=== PATIENT | female | born 1950 | race Caucasian/White ===

== ENCOUNTER 2016-09-05 20:34 | Inpatient (IN) ==
[2016-09-05] MEDS ORDERED: SODIUM CHLORIDE 0.9% 1,000 ML IV STA (21:02)
[2016-09-05] MEDS ORDERED: ONDANSETRON 4 MG/2 ML VIAL IV STA (21:03)
[2016-09-05 21:15] LABS: Basophils % 0.2 % (0.0-0.8); Eosinophils # 0.2 10*3/uL (0.0-0.87); Eosinophils % 2.1 % (0.00-10.9); Hematocrit 41.2 VOL% (35.7-47.0); Hemoglobin 13.7 GM/DL (12.0-16.0); Immature Granulocytes % 0.5 %; Immature Granulocytes Absolute 0.05 #; Lymphocytes # 0.5 10*3/uL (1.4-4.0); Lymphocytes % 4.9 % (21.3-54.2); Mean Corpuscular HGB Conc 33.3 GM/DL (32-36); Mean Corpuscular Hemoglobin 30 PG (27-34); Mean Corpuscular Volume 89.2 FL (87-102); Mean Platelet Volume 11.4 FL (9.6-12.0); Monocytes # 0.4 10*3/uL (0.11-0.8); Monocytes % 4.5 % (1.7-12.7); Neutrophils # 8.4 10*3/uL (1.4-7.4); Neutrophils % 87.8 % (38.7-73.9); Platelet Count 245 T/CUMM (130-400); Red Blood Count 4.62 MC/CUMM (3.8-5.5); Red Cell Distribution Width 13.4 % (9.3-17.3); White Blood Count 9.6 T/CUMM (4-12)
[2016-09-05 21:20] LABS: Ammonia 15 UMOL/L (11-32)
[2016-09-05 21:24] LABS: PT Patient Result 10.4 SECS
[2016-09-05 21:27] LABS: Alanine Aminotransferase 20 U/L (13-56); Albumin 3.5 G/DL (3.4-5.0); Alkaline Phosphatase 136 U/L (45-117); Aspartate Amino Transferase 21 U/L (0-37); Blood Urea Nitrogen 19 MG/DL (7-18); Calcium 8.7 MG/DL (8.5-10.1); Glucose 252 MG/DL (74-106); Magnesium 1.7 MG/DL (1.8-2.4); Potassium 3.8 MMOL/L (3.5-5.1); Sodium 143 MMOL/L (136-145); Total Protein 6.6 G/DL (6.4-8.3); Troponin I Only 0.045 NG/ML (0.00-0.045)
--- NOTE | 2016-09-05 21:29 | XRay Report ---
History is altered mental status Comparison 06/28/2015 The heart and vessels are mildly enlarged without overt congestive failure or confluent infiltrates seen Impression: Cardiomegaly and chronic vascular congestion PROCEDURE INTERPRETED AT [facility] DEPARTMENT OF RADIOLOGY Final Report Signed by: Dr. Jesenia Price
--- NOTE | 2016-09-05 21:30 | XRay Report ---
History is diarrhea Moderate air scattered in the bowel without disproportionate small bowel dilatation or organomegaly seen Small left pelvic calcification likely phlebolith Impression: Unremarkable bowel gas pattern PROCEDURE INTERPRETED AT [facility] DEPARTMENT OF RADIOLOGY Final Report Signed by: Dr. Jesenia Price
--- NOTE | 2016-09-05 21:33 | CT Report ---
History is mental status changes Comparison 06/26/2015 The ventricles are normal in size. No acute intracranial hemorrhage, mass effect, or evidence of acute cortical stroke seen. Impression: No acute intracranial pathology seen. The CT exam was performed using one or more of the following dose reduction techniques: Automated exposure control, adjustment of the mA and/or kV according to patient size, or use of iterative reconstruction technique. PROCEDURE INTERPRETED AT [facility] DEPARTMENT OF RADIOLOGY Final Report Signed by: Dr. Jesenia Price
[2016-09-05 21:34] LABS: Eosinophils 3 % (0-10); Lymphocytes 4 % (20-55); Segmented Neutrophils 88 % (50-85); Total Cells Counted 100
[2016-09-05 21:35] LABS: Anisocytosis Slight; Hypochromasia Slight; Platelet Estimate Adequate; Polychromasia Slight
[2016-09-05] MEDS ORDERED: ONDANSETRON 4 MG/2 ML VIAL ONE (22:15)
--- NOTE | 2016-09-05 22:16 | Emergency Department Note ---
IJessica Gwan, am scribing for, and in the presence of, Neno Tam MD 21:13. IYonatan Kevin Lee, MD, personally performed the services described in this documentation, ascribed by Navdeep Lopez in my presence, and it is both accurate and complete . Arrival - Arrival Chief Complaint: Altered Mental Status Stated Complaint: C/O ALTERED MENTAL STATUS. PT WAS FOUND SITTING ED Nursing Triage Note: C/O ALTERED MENTAL STATUS, PT FOUND SITTING IN FECES IN FLOOR AT HOME. PT IS AWAKE AND ALERT BUT NOT SURE WHO THE PRESIDENT IS. Mode of Arrival: Stretcher Limitations: No Limitations Source: Patient, Old Records Reviewed, RN Notes Reviewed - History of Present Illness HPI Narrative: Pt is a 65 y/o female who was bought into ED for further evaluation of AMS. Nurses noted that pt was found sitting in the floor of her home in feces by family. This prompted them to alert EMS and report to ED for further evaluation. During exam, pt stated that she has been passing out, had N/V/D and SOB. She confirmed that she has been followed by Dr. Evans. She denies any other pain/injury. Patient was alert but disoriented to time. Pt has a PMHx of HTN, [place] , anxiety, depression, vertigo, cardiac dysrhythmia, CVA, IDDM, NIDDM, dyslipidemia, asthma, COPD and arthritis. Onset (ago): hour(s) Consistency: constant Severity: moderate Date of Last Menstrual Period: HYST Allergies/Adverse Reactions: Allergies Allergy/AdvReac Type Severity Reaction Status Date / Time fluticasone Allergy Intermediate MOUTH SORES Verified 08/08/15 11:36 [From Advair Diskus] morphine Allergy Intermediate RASH Verified 11/25/14 13:25 salmeterol Allergy Intermediate MOUTH SORES Verified 08/08/15 11:36 [From Advair Diskus] bee venom (honey bee) Allergy Unknown/Unable Verified 06/20/16 07:30 to obtain Home Medications: Home Medications Medication Instructions Recorded Confirmed Type Albuterol Sulfate [Proair HFA] 2 puff INH Q6H PRN 03/11/15 06/20/16 History Aspirin [Ecotrin] 325 mg PO DAILY 03/11/15 06/20/16 History Atorvastatin Calcium [Lipitor] 80 mg PO DAILY 03/11/15 06/20/16 History Digoxin Tab [Lanoxin Tab] 0.125 mg PO DAILY 03/11/15 06/20/16 History Gabapentin Cap/Tab [Neurontin 600 mg PO TID 03/11/15 06/20/16 History Cap/Tab] Glyburide,Micronized [Glyburide 6 mg PO BID W/MEALS 03/11/15 06/20/16 History Micronized] HYDROcodone/ACETAMIN 10-325 [[place] 1 tablet PO Q6H 03/11/15 06/20/16 History 10-325] Insulin NPH/Regular 70/30 [HumuLIN 80 units SUBCUT DAILY W/SUPPER 03/11/1506/20 History 70/30] Insulin NPH/Regular 70/30 [HumuLIN 110 units SUBCUT DAILY W/BREAKFAST 03/11/15 06/20/16 History 70/30] Isosorbide Mononitrate [Imdur] 60 mg PO DAILY 03/11/15 06/20/16 History Magnesium Oxide 400 mg PO DAILY 03/11/15 06/20/16 History Metoclopramide Tab [Reglan Tab] 10 mg PO DAILY 03/11/15 06/20/16 History Metoprolol Tartrate 12.5 mg PO BID 03/11/15 06/20/16 History Pantoprazole Tab [Protonix Tab] 40 mg PO BID 03/11/15 06/21/16 History Paroxetine HCl [Paxil] 80 mg PO DAILY 06/26/15 06/21/16 History traZODone [Desyrel] 150 mg PO BID 06/26/15 06/21/16 History Fenofibrate [Tricor] 145 mg PO DAILY 05/08/16 06/20/16 History Insulin Regular [HumuLIN R] 20 unit SUBCUT DIRECTED PRN 05/08/16 06/20/16 History Meclizine [Antivert] 25 mg PO TID PRN 05/08/16 06/20/16 History Montelukast Tab [Singulair Tab] 10 mg PO DAILY 05/08/16 06/21/16 History Nitroglycerin Sl Tab [Nitrostat] 0.4 mg SL Q5M PRN 05/08/16 06/20/16 History Oxycodone HCl/Acetaminophen 1 each PO BEDTIME 05/08/16 06/21/16 History [Percocet 10-325 mg Tablet] Verapamil HCl [Verapamil ER Tab] 180 mg PO BID 05/08/16 06/20/16 History Clopidogrel [Plavix] 75 mg PO DAILY 06/20/16 06/20/16 History Furosemide Tab [Lasix Tab] 80 mg PO DAILY 06/20/16 06/20/16 History Lisinopril [Prinivil] 20 mg PO DAILY 06/20/16 06/20/16 History Methocarbamol Tab [Robaxin Tab] 500 mg PO TID PRN 06/20/16 06/20/16 History clonazePAM TAB [KlonoPIN] 0.5 mg PO BID 06/20/16 06/20/16 History Review of System - Review of System 12 point system: reviewed and no additional remarkable complaints except as stated - Review of System Respiratory: Present: as per HPI, other (shortness of breathe) Cardiovascular: Present: as per HPI, syncope Gastrointestinal: Present: as per HPI, nausea, vomiting, diarrhea Medical,Surgical,& Family Hx - Medical History Cardio: History of: Cardiac Dysrhythmia, Hypertension, [place] No history of: CHF, Pacemaker Psychological: History of: Anxiety Disorders, Depression Neurology: History of: Cerebrovascular Accident, Migraine, Vertigo, Neurological Problems (diabetic neuropathy) No history of: Seizures HEENT: History of: Eye Problem (glasses, cataracts) Endocrine: History of: Diabetes Mellitus (IDDM), Diabetes Mellitus (NIDDM), Dyslipidemia, Thyroid Disorder (has taken thyroid med in past) Rheumatology: History of;: Fibromyalgia Respiratory: History of: Asthma, COPD, Respiratory Problems (sleeps with oxygen) No history of: Obstructive Sleep Apnea Gastrointestinal: History of: GERD, Polyps, GI Problems (dysphagia) No history of: Hepatitis, Liver Problems Musculoskeletal: History of: Back/Neck Problems, Degenerative Disk Disease, Musculoskeletal Problems (arthritis) Hematology: No history of: Blood Transfusion Reaction Other: History of: Anesthesia Reactions, Miscellaneous Medical Problems (OBESITY ) No history of: Cancer - Surgical History Cardiac Surgeries: Patient Denies: Cardiac Catheterization (stents x 3), Carotid Endarterectomy Thoracic Surgeries: Patient denies;: Organ Transplant HEENT Surgeries: Surgical HX of: Tonsilectomy & Adenoidectomy Patient denies: Carotid Endarterectomy, Eye Surgery, Thyroid Surgery Abdominal Surgeries: Surgical HX of: Appendectomy, Colonoscopy, EGD, Hernia Repair Patient denies: Cholecystectomy Reproductive Surgeries: Surgical HX of;: Hysterectomy, Tubal Ligation Orthopedic Surgeries: Surgical HX of;: Orthopedic Surgery (shoulder repair) Patient denies;: Total Hip Replacement, Total Knee Replacement - Family History Family History: Reports;: Family Cancer (mother-lung, father-throat, brother- prostate), Family Diabetes, Family Heart Disease, Family Hypertension, Family Stroke - Social History Smoking Status: Never smoker Frequency of Alcohol Use: None Type of Drug Use: None Exam Vital Signs: Vital Signs Temperature 97.8 F 09/05/16 20:36 Pulse Rate 83 09/05/16 20:36 Respiratory Rate 18 09/05/16 21:00 Blood Pressure 131/101 09/05/16 20:36 O2 Sat by Pulse Oximetry 94 L 09/05/16 20:36 - General General appearance: alert, in no apparent distress - Head Head exam: Present: atraumatic, normocephalic - Eye Eye exam: Present: normal appearance, PERRL, EOMI - ENT ENT exam: Present: normal oropharynx, mucous membranes dry - Neck Neck exam: Present: full ROM, trachea midline. Absent: tenderness - Chest Chest inspection: Present: symmetric chest wall rise. Absent: tenderness - Respiratory Respiratory exam: Present: normal lung sounds bilaterally. Absent: respiratory distress - Cardiovascular Cardiovascular exam: Present: regular rate, normal rhythm, normal heart sounds. Absent: murmur, rubs - Abdominal Exam Abdominal exam: Present: soft. Absent: tenderness - Extremities Exam Extremities exam: Present: full ROM. Absent: tenderness - Back Exam Back exam: Present: full ROM. Absent: tenderness - Neurological Exam Neurological exam: Present: alert. Absent: oriented X3 (pt is disoriented on time) - Psychiatric Psychiatric exam: Present: normal affect, normal mood - Skin Skin exam: Present: warm, dry, intact, normal color Course Course Narrative: pt conts to be lethargic will admit for IV fluids and further workup of confusion Results - Labs CBC & BMP: 09/05/16 20:45 09/05/16 20:45 Lab Results: I have reviewed the patients labs Labs: Laboratory Tests 09/05/16 09/05/16 20:45 20:45 WBC 9.6 RBC 4.62 Hgb 13.7 Hct 41.2 Plt Count 245 Neut % (Auto) 87.8 H Lymph % (Auto) 4.9 L Neut # (Auto) 8.4 H Lymph # (Auto) 0.5 L Ammonia 15 Laboratory Tests 09/05/16 09/05/16 20:45 20:45 INR 1.0 PT Patient/Control Mix 10.4 Sodium 143 Potassium 3.8 Chloride 100 Carbon Dioxide 32 BUN 19 H Creatinine 1.30 H Glucose 252 H Magnesium 1.7 L Alkaline Phosphatase 136 H Serum Alcohol < 15 L Laboratory Tests 09/05/16 20:45 Segmented Neutrophils 88 H Lymphocytes 4 L - Diagnostic Findings Procedure: Chest x-ray: report reviewed by me (Cardiomegaly and chronic vascular congestion. ), KUB x-ray: report reviewed by me (Unremarkable bowel gas pattern. ), CT: report reviewed by me (Head: No acute intracranial pathology seen. ) Disposition Clinical Impression: Confusion, Dehydration Case discussed with: patient Disposition: Still a Patient Condition: Stable
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
[2016-09-05 23:20] LABS: Apearance,Urine CLEAR (Clear); Bilirubin,Urine Negative (Negative); Blood, Urine Moderate mg/dL (Negative); Glucose,Urine (UA) 50 mg/dL (Negative); Hyaline Casts,Urine 1 /LPF (0-3); Ketones,Urine Negative (Negative); Mucus,Urine Occasional /LPF (Occasional); Nitrite,Urine Negative (Negative); Protein,Urine 30 MG/DL; RBC,Urine 1 /HPF (0-4); Squamous Epithelial Cell,Urine Occasional /HPF (0-10); Urine Color Yellow (Yellow); Urine Specific Gravity 1.014 (1.001-1.035); Urine Urobilinogen < 2.0 EU/DL (0.2-1.0); WBC,Urine 1 /HPF (0-6)
[2016-09-05] MEDS ORDERED: ONDANSETRON 4 MG/2 ML VIAL IV PRN (23:23)
[2016-09-05] MEDS ORDERED: GLUCAGON 1 MG VIAL IM PRN (23:23)
[2016-09-05] MEDS ORDERED: DEXTROSE 50% 25 GM/50 ML VIAL IV PRN (23:23)
[2016-09-05 23:29] LABS: Barbiturates Screen,Urine Negative (Negative); Benzodiazepines Screen,Urine Negative (Negative); Cannabinoid Screen,Urine Negative (Negative); Opiate Screen,Urine Positive (Negative); Phencyclidine Screen,Urine Negative (Negative)
[2016-09-06] MEDS: SODIUM CHLORIDE 0.45% 1,000 ML IV SCH ×2 (00:39→15:13)
[2016-09-06] MEDS: ACETAMINOPHEN 325 MG TABLET PO PRN ×2 (01:20→08:04)
[2016-09-06] MEDS: cefTRIAXone 1,000 MG in SODIUM CHLORIDE 0.9% 100 ML IV SCH ×2 (01:20→20:25)
[2016-09-06 05:51] LABS: Basophils % 0.2 % (0.0-0.8); Eosinophils # 0.1 10*3/uL (0.0-0.87); Hematocrit 39.2 VOL% (35.7-47.0); Hemoglobin 12.7 GM/DL (12.0-16.0); Immature Granulocytes % 0.5 %; Immature Granulocytes Absolute 0.04 #; Lymphocytes # 0.9 10*3/uL (1.4-4.0); Lymphocytes % 10.1 % (21.3-54.2); Mean Corpuscular HGB Conc 32.4 GM/DL (32-36); Mean Corpuscular Hemoglobin 30 PG (27-34); Mean Corpuscular Volume 91.8 FL (87-102); Mean Platelet Volume 11.4 FL (9.6-12.0); Monocytes # 0.5 10*3/uL (0.11-0.8); Monocytes % 5.2 % (1.7-12.7); Neutrophils # 7.2 10*3/uL (1.4-7.4); Platelet Count 223 T/CUMM (130-400); Red Blood Count 4.27 MC/CUMM (3.8-5.5); Red Cell Distribution Width 13.5 % (9.3-17.3); White Blood Count 8.6 T/CUMM (4-12)
[2016-09-06 06:30] LABS: Calcium 8.1 MG/DL (8.5-10.1); Osmolality,Calculated 294.1 MOS/KG (273-304); Potassium 3.6 MMOL/L (3.5-5.1)
[2016-09-06] MEDS: INSULIN REGULAR 100 UNIT/ML SUBCUT SCH ×4 (08:04→20:25)
[2016-09-06] MEDS: PANTOPRAZOLE 40 MG TABLET PO SCH ×2 (08:04→20:26)
[2016-09-06] MEDS: ENOXAPARIN 40 MG/0.4 ML SYRINGE SUBCUT SCH (08:07)
--- NOTE | 2016-09-06 08:58 | EKG Report ---
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
--- NOTE | 2016-09-06 14:23 | Hospitalist Progress Note ---
Assessment and Plan (1) Confusion Status: Acute Assessment and plan: most likely multifactorial-dehydration from n/v/D, to r/o infection and possible early stages of dementia. patient is alert, oriented x3 and answered all questions appropriately.I suspect she is back to her baseline. plan continue hydration follow cultures dementia work up Current Visit: No (2) Diabetes mellitus Status: Acute Assessment and plan: uncontrolled,will resume home 70/30 at a lower dose of 20bid, half the home dose of glyburide, will titrate up as needed, get HbA1c level, continue with SSC. Current Visit: No Qualifiers: Diabetes mellitus complication detail: with polyneuropathy Qualified Code(s ): E11.42 - Type 2 diabetes mellitus with diabetic polyneuropathy (3) HTN (hypertension) Status: Acute Assessment and plan: will resume home meds except for verapamil and Lasix. Current Visit: Yes (4) Chronic pain syndrome Problem details: Continue current medications and home and keep follow-up appointment in pain clinic Status: Acute Assessment and plan: resume home meds Current Visit: No (5) Dyslipidemia Status: Acute Assessment and plan: resume home meds. Current Visit: Yes (6) Fibromyalgia Status: Acute Assessment and plan: continue home meds. Current Visit: Yes Hospitalist: Subjective Interval history: 65yr old admitted for confusion, n/v/D. Today she states vomiting has improved but still nauseated and has only had an episode of diarrhea.She was alert, oriented x3 and answered all questions appropriately. Exam - Constitutional Vitals: Period Temp Pulse Resp BP Sys/Ordoñez Pulse Ox Last 24 Hr 98.6 F-99.6 F 76-86 12-26 154-168/68-83 90-95 General appearance: no acute distress, morbidly obese - Head Head exam: Present: normal inspection - Respiratory Respiratory exam: Present: clear to auscultation bilaterally - Cardiovascular Cardiovascular exam: Present: regular rate and rhythm - GI/Abdominal GI/Abdominal exam: Present: normal bowel sounds - Extremities Exam Extremities exam: Present: normal inspection - Back Exam Back exam: Present: normal inspection - Neurological Exam Neurological exam: Present: alert, oriented X3 Results - Labs CBC & BMP: 09/06/16 04:34 09/06/16 04:34 Lab Results: I have reviewed the past 24 hour labs Quality Measures - Stroke Symptom Onset Unknown: No
[2016-09-06] MEDS ORDERED: METHOCARBAMOL 500 MG TABLET PO PRN (14:39)
[2016-09-06] MEDS ORDERED: MECLIZINE 25 MG TABLET PO PRN (14:39)
[2016-09-06] MEDS ORDERED: PROMETHAZINE 25 MG TABLET PO PRN (14:39)
[2016-09-06] MEDS: GABAPENTIN 300 MG CAPSULE PO SCH ×2 (15:11→20:25)
[2016-09-06] MEDS: clonazePAM 0.5 MG TABLET PO SCH ×2 (15:11→20:26)
[2016-09-06 15:25] LABS: Free T4 (Free Thyroxine) 1.13 NG/DL (0.76-1.46); Thyroid Stimulating Hormone 0.283 uIU/ml (0.358-3.74)
[2016-09-06 15:45] LABS: Folate 2.6 NG/ML (5.4-24.0); Vitamin B12 280 PG/ML (211-911)
[2016-09-06] MEDS: INSULIN ASPART PROTAMINE/ASPART 70/30 100 UNIT/ML SUBCUT SCH (16:49)
[2016-09-06] MEDS ORDERED: ALBUTEROL 2.5 MG/3 ML NEB RESP TX PRN (19:00)
[2016-09-06] MEDS: oxyCODONE/ACETAMINOPHEN 5-325 MG TABLET PO SCH (20:25)
[2016-09-06] MEDS: METOPROLOL TARTRATE 25 MG TABLET PO SCH (20:25)
[2016-09-07] MEDS: SODIUM CHLORIDE 0.45% 1,000 ML IV SCH ×3 (05:25→19:30)
[2016-09-07 07:01] LABS: Basophils % 0.4 % (0.0-0.8); Eosinophils # 0.2 10*3/uL (0.0-0.87); Hematocrit 38.8 VOL% (35.7-47.0); Hemoglobin 12.7 GM/DL (12.0-16.0); Immature Granulocytes % 0.4 %; Immature Granulocytes Absolute 0.02 #; Lymphocytes # 1.8 10*3/uL (1.4-4.0); Lymphocytes % 39.5 % (21.3-54.2); Mean Corpuscular HGB Conc 32.7 GM/DL (32-36); Mean Corpuscular Hemoglobin 30 PG (27-34); Mean Corpuscular Volume 92.2 FL (87-102); Mean Platelet Volume 10.8 FL (9.6-12.0); Monocytes # 0.4 10*3/uL (0.11-0.8); Monocytes % 7.8 % (1.7-12.7); Neutrophils # 2.2 10*3/uL (1.4-7.4); Neutrophils % 46.9 % (38.7-73.9); Platelet Count 194 T/CUMM (130-400); Red Blood Count 4.21 MC/CUMM (3.8-5.5); Red Cell Distribution Width 13.8 % (9.3-17.3); White Blood Count 4.6 T/CUMM (4-12)
[2016-09-07 07:36] LABS: Osmolality,Calculated 297.1 MOS/KG (273-304); Potassium 4.1 MMOL/L (3.5-5.1)
[2016-09-07] MEDS: INSULIN ASPART PROTAMINE/ASPART 70/30 100 UNIT/ML SUBCUT SCH ×2 (09:11→16:46)
[2016-09-07] MEDS: INSULIN REGULAR 100 UNIT/ML SUBCUT SCH ×4 (09:11→21:18)
[2016-09-07] MEDS: PARoxetine 20 MG TABLET PO SCH (09:12)
[2016-09-07] MEDS: MELOXICAM 7.5 MG TABLET PO SCH (09:13)
[2016-09-07] MEDS: ARIPiprazole 2 MG TABLET PO SCH (09:13)
[2016-09-07] MEDS: GABAPENTIN 300 MG CAPSULE PO SCH ×3 (09:13→21:20)
[2016-09-07] MEDS: MAGNESIUM OXIDE 400 MG TABLET PO SCH (09:13)
[2016-09-07] MEDS: DIGOXIN 0.125 MG TABLET PO SCH (09:13)
[2016-09-07] MEDS: ASPIRIN EC 325 MG TABLET PO SCH (09:14)
[2016-09-07] MEDS: CLOPIDOGREL 75 MG TABLET PO SCH (09:14)
[2016-09-07] MEDS: clonazePAM 0.5 MG TABLET PO SCH ×3 (09:14→21:20)
[2016-09-07] MEDS: PANTOPRAZOLE 40 MG TABLET PO SCH ×3 (09:14→21:21)
[2016-09-07] MEDS: METOCLOPRAMIDE 10 MG TABLET PO SCH (09:14)
[2016-09-07] MEDS: MONTELUKAST 10 MG TABLET PO SCH (09:14)
[2016-09-07] MEDS: FENOFIBRATE 145 MG TABLET PO SCH (09:14)
[2016-09-07] MEDS: METOPROLOL TARTRATE 25 MG TABLET PO SCH ×2 (09:15→21:21)
[2016-09-07] MEDS: ISOSORBIDE MONONITRATE 60 MG TABLET PO SCH (09:15)
[2016-09-07] MEDS: LISINOPRIL 20 MG TABLET PO SCH (09:15)
[2016-09-07] MEDS: ATORVASTATIN 80 MG TABLET PO SCH (09:17)
[2016-09-07] MEDS: ENOXAPARIN 40 MG/0.4 ML SYRINGE SUBCUT SCH (10:09)
--- NOTE | 2016-09-07 16:29 | Hospitalist Progress Note ---
Assessment and Plan (1) Confusion Status: Acute Assessment and plan: most likely multifactorial-dehydration from n/v/D, to r/o infection and possible early stages of dementia. patient is alert, oriented x3 and answered all questions appropriately.I suspect she is back to her baseline.BC&UC- negative.RPR-non reactive.TSH-0.283 plan continue hydration Current Visit: No (2) Diabetes mellitus Status: Acute Assessment and plan: uncontrolled,will increase home 70/30 dose to half of the home dose-50qam,40qpm increase glyburide to home dose, will titrate up as needed, get HbA1c level- 11.7,continue with SSC. Current Visit: No Qualifiers: Diabetes mellitus complication detail: with polyneuropathy Qualified Code(s ): E11.42 - Type 2 diabetes mellitus with diabetic polyneuropathy (3) HTN (hypertension) Status: Acute Assessment and plan: continue home meds except for verapamil and Lasix. Current Visit: Yes (4) Chronic pain syndrome Problem details: Continue current medications and home and keep follow-up appointment in pain clinic Status: Acute Assessment and plan: resume home meds Current Visit: No (5) Dyslipidemia Status: Acute Assessment and plan: resume home meds. Current Visit: Yes (6) Fibromyalgia Status: Acute Assessment and plan: continue home meds. Current Visit: Yes Hospitalist: Subjective Interval history: Patient seen. She feels better but still a little weak and shaky. Exam - Constitutional Vitals: Period Temp Pulse Resp BP Sys/Ordoñez Pulse Ox Last 24 Hr 97.2 F-98.0 F 60-71 16-20 112-161/49-96 90-98 General appearance: no acute distress, morbidly obese - Head Head exam: Present: normal inspection - Respiratory Respiratory exam: Present: clear to auscultation bilaterally - Cardiovascular Cardiovascular exam: Present: regular rate and rhythm - GI/Abdominal GI/Abdominal exam: Present: normal bowel sounds - Extremities Exam Extremities exam: Present: normal inspection Results - Labs CBC & BMP: 09/07/16 06:31 09/07/16 06:31 Lab Results: I have reviewed the past 24 hour labs Quality Measures - Stroke Symptom Onset Unknown: No
[2016-09-07] MEDS: cefTRIAXone 1,000 MG in SODIUM CHLORIDE 0.9% 100 ML IV SCH (21:18)
[2016-09-07] MEDS: oxyCODONE/ACETAMINOPHEN 5-325 MG TABLET PO SCH (21:20)
[2016-09-08] MEDS ORDERED: INSULIN ASPART PROTAMINE/ASPART 70/30 100 UNIT/ML SUBCUT SCH ×2 (07:30→16:30)
--- NOTE | 2016-09-08 08:07 | Discharge Summary ---
<Milan Gonzalez - Last Filed: 09/08/16 08:01> Hospital Course - Hospital Course Hospital Course: Ms. Rios is a 65-year-old female who was admitted to the hospital medicine service on 09/05/2016 after presenting to the ER with confusion, nausea, vomiting, and diarrhea. She was found to be dehydrated, otherwise preliminary tests were unremarkable. Blood cultures and urine cultures were negative. No acute source of infection was found. Her hospital course was uncomplicated, highlighted by management of her uncontrolled diabetes mellitus, hypertension, and dehydration with IV fluids. She remained stable throughout her stay and has reached maximum benefit from hospitalization. She is ready for discharge to home at this time with appropriate follow-up as outlined in the discharge orders. - Time spent with patient Time with patient DS: Greater than 30 minutes Discharge Plan - Discharge Data Disposition: Disch To Home/Self Care - Discharge Medications Continue Pantoprazole Tab [Protonix Tab] 40 mg PO BID Metoclopramide Tab [Reglan Tab] 10 mg PO DAILY Albuterol Sulfate [Proair HFA] 2 puff INH Q6H PRN PRN Reason: Shortness Of Breath/Wheezing HYDROcodone/ACETAMIN 10-325 [[place] 10-325] 1 tablet PO Q6H Metoprolol Tartrate 12.5 mg PO BID Gabapentin Cap/Tab [Neurontin Cap/Tab] 600 mg PO TID Magnesium Oxide 400 mg PO DAILY Atorvastatin Calcium [Lipitor] 80 mg PO DAILY Isosorbide Mononitrate [Imdur] 60 mg PO DAILY Aspirin [Ecotrin] 325 mg PO DAILY Glyburide,Micronized [Glyburide Micronized] 6 mg PO BID W/MEALS Digoxin Tab [Lanoxin Tab] 0.125 mg PO DAILY traZODone [Desyrel] 150 mg PO BID Paroxetine HCl [Paxil] 80 mg PO DAILY Fenofibrate [Tricor] 145 mg PO DAILY Montelukast Tab [Singulair Tab] 10 mg PO DAILY Meclizine [Antivert] 25 mg PO TID PRN PRN Reason: Dizziness Methocarbamol Tab [Robaxin Tab] 500 mg PO TID PRN PRN Reason: Muscle Spasm Lisinopril [Prinivil] 20 mg PO DAILY Promethazine Tab [Phenergan Tab] 25 mg PO Q8HR PRN PRN Reason: Nausea ARIPiprazole [Abilify] 2 mg PO DAILY Diclofenac 1% Gel [Voltaren 1% Gel] 1 applic DAILY PRN PRN Reason: Pain Meloxicam 7.5 mg PO DAILY Insulin Aspart Prot/Asp 70/30 [NovoLOG Mix 70/30] 60 unit SUBCUT AC BREAKFAST #1 unit Clopidogrel [Plavix] 75 mg PO DAILY clonazePAM TAB [KlonoPIN] 1 mg PO TID Insulin Aspart Prot/Asp 70/30 [NovoLOG Mix 70/30] 50 unit SUBCUT AC SUPPER # 7 unit Oxycodone HCl/Acetaminophen [Percocet 10-325 mg Tablet] 1 each PO BEDTIME # 20 Discontinued Insulin NPH/Regular 70/30 [HumuLIN 70/30] 80 units SUBCUT DAILY W/SUPPER Insulin NPH/Regular 70/30 [HumuLIN 70/30] 110 units SUBCUT DAILY W/BREAKFAST Verapamil HCl [Verapamil ER Tab] 180 mg PO BID Insulin Regular [HumuLIN R] 1 unit SUBCUT DIRECTED PRN PRN Reason: sliding scale Furosemide Tab [Lasix Tab] 80 mg PO DAILY - Follow Up or Referral - Forms/Instructions Exam - Constitutional Vitals: Period Temp Pulse Resp BP Sys/Ordoñez Pulse Ox Last 24 Hr 97.0 F-97.9 F 53-81 18-18 98-136/49-70 91-94 Discharge Results Procedures and tests throughout hospitalization: Pending Orders 09/06/16 14:30 C. Diff Toxins A & B Routine Stool Culture Routine Stool for WBCs Routine 09/06/16 14:44 Blood Culture Routine 09/06/16 15:25 Urine Culture Routine Labs on day of discharge: Labs from last 24 hours 09/08/16 09/07/16 09/07/16 07:06 19:16 15:15 POC Glucose 295 H 282 H 311 H 09/07/16 09/07/16 13:49 08:10 POC Glucose 233 H 286 H Preliminary micro results at discharge 09/06/16 14:44 Blood Culture - Preliminary Blood No growth at 1 day 09/06/16 14:44 Blood Culture - Preliminary Blood No growth at 1 day 09/06/16 15:25 Urine Culture - Preliminary Urine,Voided No Growth at 12 hours. DS: Provider Date of admission: 09/05/16 23:23 Primary care physician: . No PCP Attending physician on admission: Keisha Madsen MD Consults: 09/06/16 00:40 Consult to Pharmacy [CONS] Routine Reason for Pharmacy Consult: Adjust Meds Renal Funct Discharging clinician: Milan ROMERO Expected date of discharge: 09/08/16 <Keisha Madsen - Last Filed: 09/08/16 10:53> Hospital Course - Hospital Course Hospital Course: CT head was negative, KUB was unremarkable.PCP needs to follow up on the blood sugar management, we are currently titrating the medications up. Patient needs to log her blood sugar tid x1week and take it to her PCP.Her verapamil and Lasix were held due to drop in blood pressure. Time spent:35mins - Time spent with patient Time with patient DS: Greater than 30 minutes Diagnosis - Discharge Diagnosis (1) Confusion Status: Acute (2) Diabetes mellitus Status: Acute (3) HTN (hypertension) Status: Acute (4) Chronic pain syndrome Status: Acute (5) Dyslipidemia Status: Acute (6) Fibromyalgia Status: Acute Discharge Plan - Discharge Data Condition at Discharge: Stable Discharge Diet: diabetic diet Activity: resume usual activities as tolerated Exam - Constitutional General appearance: no acute distress - Head Head exam: Present: normal inspection - Respiratory Respiratory exam: Present: clear to auscultation bilaterally - Cardiovascular Cardiovascular exam: Present: regular rate and rhythm - GI/Abdominal GI/Abdominal exam: Present: normal bowel sounds - Extremities Exam Extremities exam: Present: normal inspection
[2016-09-08] MEDS: FENOFIBRATE 145 MG TABLET PO SCH (08:38)
[2016-09-08] MEDS: METOCLOPRAMIDE 10 MG TABLET PO SCH (08:38)
[2016-09-08] MEDS: GABAPENTIN 300 MG CAPSULE PO SCH (08:38)
[2016-09-08] MEDS: ASPIRIN EC 325 MG TABLET PO SCH (08:38)
[2016-09-08] MEDS: ISOSORBIDE MONONITRATE 60 MG TABLET PO SCH (08:38)
[2016-09-08] MEDS: MELOXICAM 7.5 MG TABLET PO SCH (08:38)
[2016-09-08] MEDS: LISINOPRIL 20 MG TABLET PO SCH (08:38)
[2016-09-08] MEDS: MAGNESIUM OXIDE 400 MG TABLET PO SCH (08:38)
[2016-09-08] MEDS: PARoxetine 20 MG TABLET PO SCH (08:38)
[2016-09-08] MEDS: MONTELUKAST 10 MG TABLET PO SCH (08:39)
[2016-09-08] MEDS: CLOPIDOGREL 75 MG TABLET PO SCH (08:39)
[2016-09-08] MEDS: clonazePAM 0.5 MG TABLET PO SCH (08:39)
[2016-09-08] MEDS: DIGOXIN 0.125 MG TABLET PO SCH (08:39)
[2016-09-08] MEDS: ATORVASTATIN 80 MG TABLET PO SCH (08:39)
[2016-09-08] MEDS: ENOXAPARIN 40 MG/0.4 ML SYRINGE SUBCUT SCH (08:39)
[2016-09-08] MEDS: METOPROLOL TARTRATE 25 MG TABLET PO SCH (08:39)
[2016-09-08] MEDS: INSULIN REGULAR 100 UNIT/ML SUBCUT SCH ×2 (08:40→12:13)
[2016-09-08] MEDS: ARIPiprazole 2 MG TABLET PO SCH (08:41)
[2016-09-08] MEDS: PANTOPRAZOLE 40 MG TABLET PO SCH ×2 (08:41)
[2016-09-08] MEDS: SODIUM CHLORIDE 0.45% 1,000 ML IV SCH ×2 (08:50→10:00)
[2016-09-08 08:53] VITALS: BP 119/60
== END 2016-09-08 14:19 | disposition home or self-care (01) | DRG 641 ==
LOC: EDUNIT# → EDBD → N.ED 20:34 → N.EDINP 23:23 → N.5E 23:53
PROVIDERS: ADMIT Internal Medicine; ATTEND Internal Medicine

== ENCOUNTER 2016-09-29 18:25 | Observation (INO) ==
[2016-09-29] MEDS ORDERED: SODIUM CHLORIDE 0.9% 500 ML IV STA (18:51)
[2016-09-29] MEDS ORDERED: ASPIRIN 325 MG TABLET PO STA (18:51)
[2016-09-29] MEDS ORDERED: ONDANSETRON 4 MG/2 ML VIAL IV STA (18:51)
--- NOTE | 2016-09-29 18:56 | EKG Report ---
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
--- NOTE | 2016-09-29 19:07 | Emergency Department Note ---
I, Shanthi Brown, am scribing for, and in the presence of, Erasmo Souza MD 19: 00. IHarley Robert M, MD, personally performed the services described in this documentation, ascribed by Shanthi Brown in my presence, and it is both accurate and complete 906 . Arrival - Arrival Chief Complaint: Neuro Stated Complaint: can't hold anything,can hardly talk,thinking strok ED Nursing Triage Note: C/O " I THINK I AM HAVING A STROKE" , STATES HAD DIFFICULTY WALKING, STATES WAS NEARLY FALLING DOWN., " I HAD TO CATCH SOMEHTING " , STATES SHE WAS HAVING SLURRED SPEECH, STATES HAVE WEAKNESS IN THE LEFT HAND/ LEFT ARM, STATES SHE WAS HOLDING A SANDWISH AND KEPT DROPPING IT, STATES SHE FEELS LIKE SHE IS NOT GOTTEN BETTER, SYMPTOMS STARTED TODAY AT 1630 Mode of Arrival: Wheelchair Limitations: No Limitations Source: Patient - History of Present Illness HPI Narrative: Pt is a 65 y/o female who came to ED for further evaluation of possible CA. Pt notes sxs of slurred speech, unable to talk, left sided weakness in upper and lower extremity, and constantly dropping objects started around 5pm today. Pt states she woke up "not feeling good all day." Pt states her left leg is weakest and walking on it "feels like it will give out." PMHx of DM neuropathy with medications pt notes needs readjusting, under supervision of Dr. Traore. Onset (ago): hour(s) Consistency: constant Severity: mild, moderate Severity scale (1-10): 4 Quality: other (weakness) Allergies/Adverse Reactions: Allergies Allergy/AdvReac Type Severity Reaction Status Date / Time fluticasone Allergy Intermediate MOUTH SORES Verified 09/29/16 18:36 [From Advair Diskus] morphine Allergy Intermediate RASH Verified 09/29/16 18:36 salmeterol Allergy Intermediate MOUTH SORES Verified 09/29/16 18:36 [From Advair Diskus] venom-honey bee Allergy Unknown/Unable Verified 09/29/16 18:36 [bee venom (honey bee)] to obtain Home Medications: Home Medications Medication Instructions Recorded Confirmed Type Albuterol Sulfate [Proair HFA] 2 puff INH Q6H PRN 03/11/15 09/06/16 History Aspirin [Ecotrin] 325 mg PO DAILY 03/11/15 09/06/16 History Atorvastatin Calcium [Lipitor] 80 mg PO DAILY 03/11/15 09/06/16 History Digoxin Tab [Lanoxin Tab] 0.125 mg PO DAILY 03/11/15 09/06/16 History Gabapentin Cap/Tab [Neurontin 600 mg PO TID 03/11/15 09/06/16 History Cap/Tab] Glyburide,Micronized [Glyburide 6 mg PO BID W/MEALS 03/11/15 09/06/16 History Micronized] HYDROcodone/ACETAMIN 10-325 [[place] 1 tablet PO Q6H 03/11/15 09/06/16 History 10-325] Isosorbide Mononitrate [Imdur] 60 mg PO DAILY 03/11/15 09/06/16 History Magnesium Oxide 400 mg PO DAILY 03/11/15 09/06/16 History Metoclopramide Tab [Reglan Tab] 10 mg PO DAILY 03/11/15 09/06/16 History Metoprolol Tartrate 12.5 mg PO BID 03/11/15 09/06/16 History Pantoprazole Tab [Protonix Tab] 40 mg PO BID 03/11/15 09/06/16 History PARoxetine HCl [Paxil] 80 mg PO DAILY 06/26/15 09/06/16 History traZODone [Desyrel] 150 mg PO BID 06/26/15 09/06/16 History Fenofibrate [Tricor] 145 mg PO DAILY 05/08/16 09/06/16 History Meclizine [Antivert] 25 mg PO TID PRN 05/08/16 09/06/16 History Montelukast Tab [Singulair Tab] 10 mg PO DAILY 05/08/16 09/06/16 History Clopidogrel [Plavix] 75 mg PO DAILY 06/20/16 09/06/16 History Lisinopril [Prinivil] 20 mg PO DAILY 06/20/16 09/06/16 History Methocarbamol Tab [Robaxin Tab] 500 mg PO TID PRN 06/20/16 09/06/16 History clonazePAM TAB [KlonoPIN] 1 mg PO TID 06/20/16 09/06/16 History ARIPiprazole [Abilify] 2 mg PO DAILY 09/06/16 09/06/16 History Diclofenac 1% Gel [Voltaren 1% Gel] 1 applic DAILY PRN 09/06/16 09/06/16 History Meloxicam 7.5 mg PO DAILY 09/06/16 09/06/16 History Promethazine Tab [Phenergan Tab] 25 mg PO Q8HR PRN 09/06/16 09/06/16 History Insulin Aspart Prot/Asp 70/30 50 unit SUBCUT AC SUPPER #7 unit 09/08/16 Rx [NovoLOG Mix 70/30] Insulin Aspart Prot/Asp 70/30 60 unit SUBCUT AC BREAKFAST #1 unit 09/08/16 Rx [NovoLOG Mix 70/30] Oxycodone HCl/Acetaminophen 1 each PO BEDTIME #20 09/08/16 Rx [Percocet 10-325 mg Tablet] Review of System - Review of System 12 point system: reviewed and no additional remarkable complaints except as stated - Review of System Constitutional: Absent: chills, diaphoresis, fever Respiratory: Absent: respiratory distress Cardiovascular: Absent: chest pain Gastrointestinal: Absent: abdominal pain, nausea, vomiting Musculoskeletal: Absent: back pain, neck pain Skin: Absent: rash Neurological: Present: weakness (left sided weakness in upper and lower extremities), abnormal gait (left leg feels weakest; feels could fall when walking on it). Absent: headache, confusion Medical,Surgical,& Family Hx - Medical History Cardio: History of: Hypertension Psychological: History of: Anxiety Disorders, Depression Neurology: History of: Neurological Problems (diabetic neuropathy) No history of: Seizures Endocrine: History of: Diabetes Mellitus (IDDM), Diabetes Mellitus (NIDDM), Dyslipidemia Rheumatology: History of;: Fibromyalgia Respiratory: History of: COPD Other: History of: Miscellaneous Medical Problems (OBESITY) - Surgical History Surgical History: noncontributory Thoracic Surgeries: Patient denies;: Organ Transplant Reproductive Surgeries: Surgical HX of;: Breast Surgery (biopsy-benign) - Family History Family History: Reports;: Family Diabetes, Family Hypertension - Social History Smoking Status: Never smoker Frequency of Alcohol Use: None Type of Drug Use: None Marital Status: Single Functional capacity: independent ambulation Exam Vital Signs: Vital Signs Temperature 98.3 F 09/29/16 19:24 Pulse Rate 48 L 09/29/16 20:03 Respiratory Rate 20 09/29/16 20:03 Blood Pressure 110/65 09/29/16 20:03 O2 Sat by Pulse Oximetry 96 09/29/16 20:03 - General General appearance: alert, in no apparent distress, obese - Head Head exam: Present: atraumatic, normocephalic - Eye Eye exam: Present: PERRL, EOMI - ENT ENT exam: Present: mucous membranes moist. Absent: mucous membranes dry - Neck Neck exam: Present: full ROM. Absent: tenderness - Chest Chest inspection: Present: symmetric chest wall rise. Absent: tenderness - Respiratory Respiratory exam: Present: normal lung sounds bilaterally. Absent: respiratory distress - Cardiovascular Cardiovascular exam: Present: bradycardia (but in sinus rhythm), normal heart sounds - Extremities Exam Extremities exam: Present: full ROM. Absent: tenderness, pedal edema - Neurological Exam Neurological exam: Present: alert, oriented X3, CN II-XII intact, other (left leg with some weakness; but blind cleaner in hands are equal; no posterior folds creases in forehead). Absent: motor sensory deficit - Psychiatric Psychiatric exam: Present: normal affect, normal mood - Skin Skin exam: Present: warm, dry Course - Consultations Consultation #1: The hospitalist will evaluate and admit the patient. Time: :17 Results - Labs CBC & BMP: 09/29/16 18:45 09/29/16 18:45 Lab Results: I have reviewed the patients labs Labs: Lab Results WBC 9.6 T/CUMM (4-12) 09/29/16 18:45 RBC 4.12 MC/CUMM (3.8-5.5) 09/29/16 18:45 Hgb 12.3 GM/DL (12.0-16.0) 09/29/16 18:45 Hct 38.4 VOL% (35.7-47.0) 09/29/16 18:45 MCV 93.2 FL (87-102) 09/29/16 18:45 MCH 30 PG (27-34) 09/29/16 18:45 MCHC 32.0 GM/DL (32-36) 09/29/16 18:45 RDW 13.6 % (9.3-17.3) 09/29/16 18:45 Plt Count 263 T/CUMM (130-400) 09/29/16 18:45 MPV 11.4 FL (9.6-12.0) 09/29/16 18:45 Neut % (Auto) 55.5 % (38.7-73.9) 09/29/16 18:45 Lymph % (Auto) 34.7 % (21.3-54.2) 09/29/16 18:45 [place] % (Auto) 5.1 % (1.7-12.7) 09/29/16 18:45 Eos % (Auto) 3.5 % (0.00-10.9) 09/29/16 18:45 Baso % (Auto) 0.8 % (0.0-0.8) 09/29/16 18:45 Neut # (Auto) 5.3 10*3/uL (1.4-7.4) 09/29/16 18:45 Lymph # (Auto) 3.3 10*3/uL (1.4-4.0) 09/29/16 18:45 [place] # (Auto) 0.5 10*3/uL (0.11-0.8) 09/29/16 18:45 Eos # (Auto) 0.3 10*3/uL (0.0-0.87) 09/29/16 18:45 Baso # (Auto) 0.1 10*3/uL (0.0-0.2) 09/29/16 18:45 Immature Gran % 0.4 % 09/29/16 18:45 Nucleated RBC % 0.0 /100WBC 09/29/16 18:45 Immature Gran # 0.04 # 09/29/16 18:45 Nucleated RBCs # 0.00 10*3/uL 09/29/16 18:45 INR 1.0 09/29/16 18:45 PT Patient/Control Mix 10.4 SECS 09/29/16 18:45 Circ Anticoag PTT 23.5 SECS (0-40) 09/29/16 18:45 Sodium 137 MMOL/L (136-145) 09/29/16 18:45 Potassium 4.0 MMOL/L (3.5-5.1) 09/29/16 18:45 Chloride 101 MMOL/L (98-107) 09/29/16 18:45 Carbon Dioxide 28 MMOL/L (21-32) 09/29/16 18:45 Anion Gap 12.0 MMOL/L (5.0-15.0) 09/29/16 18:45 BUN 23 MG/DL (7-18) H 09/29/16 18:45 Creatinine 2.00 MG/DL (0.55-1.02) H 09/29/16 18:45 GFR Calculation 33 ML/MIN 09/29/16 18:45 BUN/Creatinine Ratio 11.00 RATIO (6.00-20.00) 09/29/16 18:45 Glucose 472 MG/DL (74-106) H 09/29/16 18:45 Calculated Osmolality 297.8 MOS/KG (273-304) 09/29/16 18:45 Calcium 8.3 MG/DL (8.5-10.1) L 09/29/16 18:45 Total Bilirubin 0.40 MG/DL (0.2-1.0) 09/29/16 18:45 AST 15 U/L (0-37) 09/29/16 18:45 ALT 21 U/L (13-56) 09/29/16 18:45 Alkaline Phosphatase 139 U/L (45-117) H 09/29/16 18:45 Troponin I 0.028 NG/ML (0.00-0.045) 09/29/16 18:45 Total Protein 6.3 G/DL (6.4-8.3) L 09/29/16 18:45 Albumin 3.1 G/DL (3.4-5.0) L 09/29/16 18:45 Globulin 3.2 G/DL (2.3-3.5) 09/29/16 18:45 Albumin/Globulin Ratio 0.9 RATIO (1.1-2.2) L 09/29/16 18:45 Serum Alcohol < 15 MG/DL (<15) L 09/29/16 18:45 - EKG EKG results: interpreted by ERMD, WNL, sinus rhythm (Bradycardia), normal axis - Diagnostic Findings Procedure: CT: image reviewed by me (No hemorrhage. Stable CT. No acute infarct.) Disposition Clinical Impression: Cerebrovascular accident, Hyperglycemia due to type 2 diabetes mellitus, Chronic pain syndrome, HTN (hypertension), Diabetes mellitus, Altered mental status Case discussed with: patient, patient's family Disposition: Still a Patient Condition: Stable Time of Disposition: 20:17 NIH Stroke Score - Stroke Score Initial Assessment Level of Consciousness: Alert Level of Consciousness Questions: Answers Both Correctly Level of Consciousness Commands: Obeys Both Correctly Best Gaze: Normal Visual Padilla: No Visual Loss Facial Palsy: Normal Motor - Right Arm: No Drift Motor - Left Arm: No Drift Motor - Right Leg: No Drift Motor - Left Leg: Can't Resist [place] Limb Ataxia: Absent Sensory ([place]): Normal Best Language: Mild to Moderate Aphasia Dysarthria: Normal Extinction / Inattention (Neglect): No Neglect NIH Stroke Score: 3
[2016-09-29] MEDS ORDERED: ASPIRIN 325 MG TABLET ONE (19:13)
[2016-09-29] MEDS ORDERED: ONDANSETRON 4 MG/2 ML VIAL ONE (19:13)
[2016-09-29 19:15] LABS: Basophils # 0.1 10*3/uL (0.0-0.2); Basophils % 0.8 % (0.0-0.8); Eosinophils # 0.3 10*3/uL (0.0-0.87); Eosinophils % 3.5 % (0.00-10.9); Hematocrit 38.4 VOL% (35.7-47.0); Hemoglobin 12.3 GM/DL (12.0-16.0); Immature Granulocytes % 0.4 %; Immature Granulocytes Absolute 0.04 #; Lymphocytes # 3.3 10*3/uL (1.4-4.0); Lymphocytes % 34.7 % (21.3-54.2); Mean Corpuscular Hemoglobin 30 PG (27-34); Mean Corpuscular Volume 93.2 FL (87-102); Mean Platelet Volume 11.4 FL (9.6-12.0); Monocytes # 0.5 10*3/uL (0.11-0.8); Monocytes % 5.1 % (1.7-12.7); Neutrophils # 5.3 10*3/uL (1.4-7.4); Neutrophils % 55.5 % (38.7-73.9); Platelet Count 263 T/CUMM (130-400); Red Blood Count 4.12 MC/CUMM (3.8-5.5); Red Cell Distribution Width 13.6 % (9.3-17.3); White Blood Count 9.6 T/CUMM (4-12)
--- NOTE | 2016-09-29 19:24 | CT Report ---
History: Stroke alert. Difficulty walking. Slurred speech. Left arm weakness Date: 09/29/2016 Study: CT head without contrast Comparison exam: September 05, [address] sections were obtained through the head without IV contrast. This CT exam was performed using one or more the following dose reduction techniques: Automated exposure control, adjustment of the MA and/or KV according to patient size, or use of iterative reconstruction technique. The ventricles are midline in position without evidence of hydrocephalus. There is no mass or parenchymal hemorrhage. There is no gross CT evidence of acute cortical stroke. There is a small amount of ill-defined density in the periventricular white matter without mass effect compatible with changes of small vessel disease. There is no acute extra-axial hematoma. There is no acute abnormality of the calvarium. The partially visualized sinuses and mastoid air cells are generally clear. Impression: No acute intracranial process PROCEDURE INTERPRETED AT [facility] DEPARTMENT OF RADIOLOGY Final Report Signed by: Dr. Kandy Martinez
[2016-09-29 19:25] LABS: PT Patient Result 10.4 SECS; Partial Thromboplastin Time 23.5 SECS (0-40)
[2016-09-29 19:45] LABS: Alanine Aminotransferase 21 U/L (13-56); Albumin 3.1 G/DL (3.4-5.0); Alkaline Phosphatase 139 U/L (45-117); Aspartate Amino Transferase 15 U/L (0-37); Blood Urea Nitrogen 23 MG/DL (7-18); Calcium 8.3 MG/DL (8.5-10.1); Glucose 472 MG/DL (74-106); Osmolality,Calculated 297.8 MOS/KG (273-304); Sodium 137 MMOL/L (136-145); Total Protein 6.3 G/DL (6.4-8.3)
--- NOTE | 2016-09-29 19:53 | XRay Report ---
History: Cardiomegaly Date: 09/29/2016 Study: Chest x-ray AP portable Comparison exam: September 05, 2016 chest x-ray There is continued cardiomegaly. The mediastinal contours are unchanged. The pulmonary vasculature is not engorged. The lungs and pleural spaces are clear. There is [id number] thoracic spondylosis. There has been previous right shoulder replacement. Impression: No definite acute process compared to the previous study. Stable cardiomegaly PROCEDURE INTERPRETED AT [facility] DEPARTMENT OF RADIOLOGY Final Report Signed by: Dr. Kandy Martinez
[2016-09-29 20:44] LABS: Apearance,Urine CLOUDY (Clear); Bilirubin,Urine Negative (Negative); Blood, Urine Large mg/dL (Negative); Glucose,Urine (UA) >=500 mg/dL (Negative); Hyaline Casts,Urine 24 /LPF (0-3); Ketones,Urine Negative (Negative); Nitrite,Urine Negative (Negative); Protein,Urine 30 MG/DL; RBC,Urine 348 /HPF (0-4); Squamous Epithelial Cell,Urine Occasional /HPF (0-10); Urine Color Yellow (Yellow); Urine Specific Gravity 1.023 (1.001-1.035); Urine Urobilinogen < 2.0 EU/DL (0.2-1.0); WBC,Urine 53 /HPF (0-6)
[2016-09-29 20:52] LABS: Barbiturates Screen,Urine Negative (Negative); Benzodiazepines Screen,Urine Negative (Negative); Cannabinoid Screen,Urine Negative (Negative); Opiate Screen,Urine Negative (Negative); Phencyclidine Screen,Urine Negative (Negative)
[2016-09-29] MEDS ORDERED: DEXTROSE 50% 25 GM/50 ML VIAL IV PRN ×2 (20:57)
[2016-09-29] MEDS ORDERED: GLUCAGON 1 MG VIAL IM PRN ×2 (20:57)
[2016-09-29] MEDS ORDERED: ENOXAPARIN 100 MG/ML SYRINGE SUBCUT SCH (21:00)
--- NOTE | 2016-09-29 21:02 | Hospitalist History & Physical ---
Assessment and Plan - Time spent with patient Time spent with patient: Greater than 30 minutes (1) Left-sided weakness Status: Acute Assessment and plan: This is concerning for a CVA. Will obtain an MRI of the brain, carotid ultrasound, echocardiogram. Consult neurology. Current Visit: Yes (2) Atrial fibrillation Status: Acute Assessment and plan: Review of the patient's medical records does not seem to indicate she has known atrial fibrillation. There is no mention of atrial fibrillation in notes I have perused. Patient denies atrial fibrillation. She does appear to be on medications consistent with this however. Will consult cardiology for further clarification. In the meantime we will start the patient on Lovenox. Obtain serial troponins and an echocardiogram. Current Visit: Yes (3) Diabetes mellitus Status: Acute Assessment and plan: Start the patient on sliding scale insulin and Accu-Cheks. Diabetic diet. Current Visit: Yes Qualifiers: Diabetes mellitus complication detail: with polyneuropathy Qualified Code(s ): E11.42 - Type 2 diabetes mellitus with diabetic polyneuropathy (4) HTN (hypertension) Status: Acute Assessment and plan: Holding blood pressure meds to allow for permissive hypertension. Current Visit: Yes History of Present Illness Chief complaint: Left-sided weakness. History of present illness: Ms. Rios is a 65 year old female with a medical history of diabetes mellitus, morbid obesity, hypertension presents with complaints of left-sided weakness. Patient states she was at a department store in [facility] around 4 PM when she developed left-sided weakness. She states her symptoms began almost suddenly though admits she was not feeling well the whole day. She states that while at the department store lost her balance and almost fell, developed slurred speech, could not make use of her left leg due to weakness, kept dropping sandwich from her left hand, and then developed a headache on the left side of her head. At this point in time the patient decided to present to the emergency department. She denies any chest pain, shortness of breath, fever, nausea, vomiting, diarrhea, melena, bright blood per rectum. Patient did not bring her medications though she states her medications have not changed since previous discharge. Home Medications Medication Instructions Recorded Confirmed Type Albuterol Sulfate [Proair HFA] 2 puff INH Q6H PRN 03/11/15 09/06/16 History Aspirin [Ecotrin] 325 mg PO DAILY 03/11/15 09/06/16 History Atorvastatin Calcium [Lipitor] 80 mg PO DAILY 03/11/15 09/06/16 History Digoxin Tab [Lanoxin Tab] 0.125 mg PO DAILY 03/11/15 09/06/16 History Gabapentin Cap/Tab [Neurontin 600 mg PO TID 03/11/15 09/06/16 History Cap/Tab] Glyburide,Micronized [Glyburide 6 mg PO BID W/MEALS 03/11/15 09/06/16 History Micronized] HYDROcodone/ACETAMIN 10-325 [[place] 1 tablet PO Q6H 03/11/15 09/06/16 History 10-325] Isosorbide Mononitrate [Imdur] 60 mg PO DAILY 03/11/15 09/06/16 History Magnesium Oxide 400 mg PO DAILY 03/11/15 09/06/16 History Metoclopramide Tab [Reglan Tab] 10 mg PO DAILY 03/11/15 09/06/16 History Metoprolol Tartrate 12.5 mg PO BID 03/11/15 09/06/16 History Pantoprazole Tab [Protonix Tab] 40 mg PO BID 03/11/15 09/06/16 History PARoxetine HCl [Paxil] 80 mg PO DAILY 06/26/15 09/06/16 History traZODone [Desyrel] 150 mg PO BID 06/26/15 09/06/16 History Fenofibrate [Tricor] 145 mg PO DAILY 05/08/16 09/06/16 History Meclizine [Antivert] 25 mg PO TID PRN 05/08/16 09/06/16 History Montelukast Tab [Singulair Tab] 10 mg PO DAILY 05/08/16 09/06/16 History Clopidogrel [Plavix] 75 mg PO DAILY 06/20/16 09/06/16 History Lisinopril [Prinivil] 20 mg PO DAILY 06/20/16 09/06/16 History Methocarbamol Tab [Robaxin Tab] 500 mg PO TID PRN 06/20/16 09/06/16 History clonazePAM TAB [KlonoPIN] 1 mg PO TID 06/20/16 09/06/16 History ARIPiprazole [Abilify] 2 mg PO DAILY 09/06/16 09/06/16 History Diclofenac 1% Gel [Voltaren 1% Gel] 1 applic DAILY PRN 09/06/16 09/06/16 History Meloxicam 7.5 mg PO DAILY 09/06/16 09/06/16 History Promethazine Tab [Phenergan Tab] 25 mg PO Q8HR PRN 09/06/16 09/06/16 History Insulin Aspart Prot/Asp 70/30 50 unit SUBCUT AC SUPPER #7 unit 09/08/16 Rx [NovoLOG Mix 70/30] Insulin Aspart Prot/Asp 70/30 60 unit SUBCUT AC BREAKFAST #1 unit 09/08/16 Rx [NovoLOG Mix 70/30] Oxycodone HCl/Acetaminophen 1 each PO BEDTIME #20 09/08/16 Rx [Percocet 10-325 mg Tablet] Allergies Allergy/AdvReac Type Severity Reaction Status Date / Time fluticasone Allergy Intermediate MOUTH SORES Verified 09/29/16 18:36 [From Advair Diskus] morphine Allergy Intermediate RASH Verified 09/29/16 18:36 salmeterol Allergy Intermediate MOUTH SORES Verified 09/29/16 18:36 [From Advair Diskus] venom-honey bee Allergy Unknown/Unable Verified 09/29/16 18:36 [bee venom (honey bee)] to obtain Medical,Surgical,& Family Hx - Medical History Cardio: History of: Hypertension Psychological: History of: Anxiety Disorders, Depression Neurology: History of: Neurological Problems (diabetic neuropathy) No history of: Seizures Endocrine: History of: Diabetes Mellitus (IDDM), Diabetes Mellitus (NIDDM), Dyslipidemia Rheumatology: History of;: Fibromyalgia Respiratory: History of: COPD Other: History of: Miscellaneous Medical Problems (OBESITY) - Surgical History Thoracic Surgeries: Patient denies;: Organ Transplant Reproductive Surgeries: Surgical HX of;: Breast Surgery (biopsy-benign) - Family History Family History: Reports;: Family Diabetes, Family Hypertension - Social History Smoking Status: Never smoker Frequency of Alcohol Use: None Type of Drug Use: None 12 point system: reviewed and no additional remarkable complaints except as stated Exam - Constitutional Vitals: Period Temp Pulse Resp BP Sys/Ordoñez Pulse Ox Last 24 Hr 98.3 F-98.3 F 48-58 16-20 101-112/41-65 92-97 General appearance: no acute distress, morbidly obese - Head Head exam: Present: normal inspection, normocephalic, atraumatic - Eye Eye exam: Present: EOMI Pupils: Present: KATHIE - ENT ENT exam: Present: normal exam - Neck Neck exam: Present: normal inspection - Respiratory Respiratory exam: Present: clear to auscultation bilaterally. Absent: rhonchi, wheezes - Cardiovascular Cardiovascular exam: Present: irregular rhythm. Absent: gallop, rubs, systolic murmur - GI/Abdominal GI/Abdominal exam: Present: normal bowel sounds, soft. Absent: distended, firm , guarding, tenderness, rebound - Extremities Exam Extremities exam: Present: normal inspection. Absent: calf tenderness, edema - Neurological Exam Neurological exam: Present: alert, oriented X3, other (Left-sided weakness 5- out of 5 upper extremity and lower extremity 4+ out of 5. Cranial nerves II through XII are intact. Patient has poor finger I following donation.) Results - Labs CBC & BMP: 09/29/16 18:45 09/29/16 18:45 Lab Results: I have reviewed the past 24 hour labs - EKG EKG shows: atrial fibrillation Quality Measures - Stroke Onset of Symptoms Date: 09/29/16 Onset of Symptoms Time: 16:00 Symptom Onset Unknown: No
[2016-09-29] MEDS: ENOXAPARIN 100 MG/ML SYRINGE SUBCUT SCH (23:50)
[2016-09-30] MEDS ORDERED: GABAPENTIN 300 MG CAPSULE PO ONE (00:30)
[2016-09-30 06:39] LABS: Basophils # 0.1 10*3/uL (0.0-0.2); Basophils % 0.7 % (0.0-0.8); Eosinophils # 0.4 10*3/uL (0.0-0.87); Eosinophils % 4.8 % (0.00-10.9); Hematocrit 37.1 VOL% (35.7-47.0); Immature Granulocytes % 0.4 %; Immature Granulocytes Absolute 0.03 #; Lymphocytes # 3.1 10*3/uL (1.4-4.0); Lymphocytes % 42.1 % (21.3-54.2); Mean Corpuscular HGB Conc 32.3 GM/DL (32-36); Mean Corpuscular Hemoglobin 30 PG (27-34); Mean Corpuscular Volume 93.9 FL (87-102); Mean Platelet Volume 11.1 FL (9.6-12.0); Monocytes # 0.4 10*3/uL (0.11-0.8); Monocytes % 5.6 % (1.7-12.7); Neutrophils # 3.4 10*3/uL (1.4-7.4); Neutrophils % 46.4 % (38.7-73.9); Platelet Count 223 T/CUMM (130-400); Red Blood Count 3.95 MC/CUMM (3.8-5.5); Red Cell Distribution Width 13.6 % (9.3-17.3); White Blood Count 7.3 T/CUMM (4-12)
[2016-09-30 07:17] LABS: Calcium 8.1 MG/DL (8.5-10.1); Potassium 4.3 MMOL/L (3.5-5.1)
[2016-09-30 07:30] LABS: Risk Ratio 5.62; VLDL CHOLESTEROL 166.6 MG/DL
[2016-09-30] MEDS: ENOXAPARIN 100 MG/ML SYRINGE SUBCUT SCH ×2 (08:45→21:15)
[2016-09-30] MEDS: GABAPENTIN 300 MG CAPSULE PO SCH ×3 (08:45→21:15)
[2016-09-30] MEDS: INSULIN LISPRO 100 UNIT/ML SUBCUT SCH ×5 (08:46→21:14)
[2016-09-30] MEDS: DIGOXIN 0.125 MG TABLET PO SCH (08:46)
[2016-09-30] MEDS: ARIPiprazole 2 MG TABLET PO SCH (08:46)
[2016-09-30] MEDS: FENOFIBRATE 145 MG TABLET PO SCH (08:46)
[2016-09-30] MEDS: CLOPIDOGREL 75 MG TABLET PO SCH (08:46)
[2016-09-30] MEDS: ATORVASTATIN 80 MG TABLET PO SCH (08:46)
[2016-09-30] MEDS ORDERED: ASPIRIN EC 325 MG TABLET PO SCH (09:00)
--- NOTE | 2016-09-30 09:43 | Hospitalist Progress Note ---
Assessment and Plan (1) Dyslipidemia Status: Acute Assessment and plan: Patient has mixed dyslipidemia with low HDL. Total cholesterol 208 mg percent. Will continue atorvastatin and TriCor this point. It looks to me that could benefit from nystatin in the long run to improve on HDL. Current Visit: No (2) Cerebrovascular accident Status: Acute Assessment and plan: Patient is pending assessment of of neck and head vasculature. Also pending MRI of the brain. She still has residual deficit on the left side and involving the arm on the legs. Facial structures seem to be preserved. Surgical consultation will be on the chart. Current Visit: Yes (3) Atrial fibrillation Status: Acute Assessment and plan: She has controlled ventricular response. We will do an echocardiogram to assess the cardiac chambers including the left atrial appendage.Patient is on full fractionated heparin dosing. We may have to reduce the dose of aspirin to baby aspirin. Current Visit: Yes Hospitalist: Subjective Interval history: Patient has been seen interviewed and examined chart has been reviewed. She denies 65-year-old female admitted through the emergency room with history that she was at a department store in another town where she developed sudden weakness in the left side almost fell down she developed slurring of speech. This started about 1600 hrs. yesterday by the 1800 hour patient was in the emergency room yesterday. There was obviously noted left-sided hemiparesis and slurred speech. Patient had a CT scan about 184. Evidence evaluation for TPA. The patient does have some slight return of movement on the left side and improvement of her speech. CT scan did not reveal any acute disease MRI is pending vascular inquisition is also pending at this point. There was an ultrasound of the neck vessels that is pending report. She has hypertriglyceridemia cholesterol is 208 mg percent HDL of 37 mg percent LDL 72 mg percent patient is on atorvastatin and TriCor is also been started on clopidogrel 75 mg daily and full dose aspirin. Exam - Constitutional Vitals: Period Temp Pulse Resp BP Sys/Ordoñez Pulse Ox Last 24 Hr 97.7 F-98.5 F 53-58 18-20 102-130/51-65 2-96 General appearance: over weight - Head Head exam: Present: normocephalic, atraumatic, other (No facial droop) - Eye Eye exam: Present: EOMI Pupils: Present: KATHIE - ENT ENT exam: Present: normal oropharynx - Respiratory Respiratory exam: Present: clear to auscultation bilaterally - Cardiovascular Cardiovascular exam: Present: irregular rhythm, other (History of atrial fibrillation of ventricular responses are controlled) - GI/Abdominal GI/Abdominal exam: Present: normal bowel sounds, soft - Extremities Exam Extremities exam: Present: other (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 in the left arm produced resistant the left lower extremity responds appropriately with a slow speech but not slurred) - Neurological Exam Neurological exam: Present: alert, oriented X3, CN II-XII intact, other (Good gag reflex midline tongue) - Psychiatric Psychiatric exam: Present: normal affect, normal mood - Skin Skin exam: Present: normal color, warm, dry Results - Labs CBC & BMP: 09/30/16 06:26 09/30/16 06:26 Lab Results: I have reviewed the past 24 hour labs - Diagnostic Findings Procedure: Chest x-ray: report reviewed by me (Stable cardiomegaly no acute parenchymal lung disease), CT: report reviewed by me (Without contrast; no acute intracranial processes), MRI: pending (Of the head and head and neck vasculature) Quality Measures - Stroke Onset of Symptoms Date: 09/29/16 Onset of Symptoms Time: 16:00 Symptom Onset Unknown: No
--- NOTE | 2016-09-30 13:28 | Ultrasound Report ---
History: CVA. Slurred speech. Left upper extremity weakness Date: 09/30/2016 Study: Carotid duplex ultrasound Comparison exam: No previous carotid ultrasound currently available Color Doppler, wave form analysis, and grayscale analysis of the cervical carotid arteries was performed. There is mild partially calcified plaque in either carotid bulb. Waveform analysis shows proper directional flow of the cervical carotid arteries. There is antegrade flow in either vertebral artery. The distal right ICA measures 5.4 mm diameter; the left measures 5.4 mm diameter. Peak systolic velocities are as follows: Right CCA 81 cm/s Right ICA 170 cm/s Right ECA 175 cm/s Right vertebral 56 cm/s Right IC/CC ratio 1.3 Left CCA 84 cm/s Left ICA 70 cm/s Left ECA 116 cm/s Left vertebral 58 cm/s Left IC/CC ratio 0.8 There is 0-15% diameter reduction narrowing of either internal carotid artery using indirect NASCET criteria. Ultrasound images were captured and archived. Impression: No hemodynamically significant internal carotid artery stenosis PROCEDURE INTERPRETED AT [facility] DEPARTMENT OF RADIOLOGY Final Report Signed by: Dr. Kandy Martinez
--- NOTE | 2016-09-30 15:15 | Magnetic Resonance Report ---
History: Left-sided weakness. Slurred speech Date: 09/30/2016 Study: MRI brain with and without IV contrast Comparison exam: Head CT September 29, 2016 and MRI brain June 22, 2014 The brain was imaged in 3 planes on the 1.5 Melvi magnet with and without IV contrast, to include diffusion, T2, FLAIR, and pre-and postcontrast T1-weighted sequences. 20 ml Dotarem contrast was given IV without immediate complication under the supervision of this radiologist. The exam was performed within 24 hours of hospital admission. The ventricles are midline in position without evidence of hydrocephalus. There is no Chiari I malformation. The patient has a so-called empty pituitary sella. There is no evidence of acute ischemia on the diffusion sequence. There is some mild patchy increased FLAIR and T2 signal in the periventricular white matter without mass effect or enhancement compatible with changes of small vessel disease. These changes are mildly increased compared to the 2014 comparison MRI. There is no new mass. There is no parenchymal hemorrhage. There is no abnormal brain parenchymal enhancement. The superior sagittal sinus is patent. There is no gross flow abnormality in the [place] area. There is no extra-axial hematoma. There are some prominent perivascular spaces in either middle cerebral peduncle. There is no extra-axial hematoma. There is evidence of remote post cataract surgery bilaterally. Impression: No evidence of acute ischemia. No acute intracranial process. Periventricular small vessel disease which has mildly worsened since the comparison MRI PROCEDURE INTERPRETED AT [facility] DEPARTMENT OF RADIOLOGY Final Report Signed by: Dr. Kandy Martinez
--- NOTE | 2016-09-30 15:53 | Cardiology Consult Note ---
Assessment and Plan (1) Coronary artery disease Status: Chronic Assessment and plan: Patient's had prior stents in RCA. Cart catheterization #2016 though revealed stable disease. Current Visit: Yes (2) History of coronary artery stent placement Status: Chronic Assessment and plan: Prior stents placed in the RCA. Current Visit: Yes (3) HTN (hypertension) Status: Chronic Assessment and plan: This is chronic and stable at this time. Current Visit: Yes (4) Renal insufficiency Status: Chronic Assessment and plan: Chronic but appears to be fairly stable. Current Visit: No (5) Urinary tract infection Status: Acute Assessment and plan: Appears to have a urinary tract infection. Current Visit: No (6) Chronic pain syndrome Problem details: Continue current medications and home and keep follow-up appointment in pain clinic Status: Chronic Assessment and plan: She's wanting her [place] restarted. Current Visit: Yes History of Present Illness - Data of Consult Patient: known to practice within the last 3 years Consult date: 09/30/16 Requesting Physician: Charisse Salazar - Consult Narrative Reason for consult: atrial fibrillation History of present illness: Ms. Rios is a 65 year old female is been followed by Dr. Denney for coronary disease previously. The patient was admitted with left sided weaknesses of late that worsened recently. It should've been going on for one to 2 months. We're asked to see the patient as was noted issues and atrial fibrillation at the time remission. Looking back over chart she had episode of atrial fibrillation previously. I don't find that she is on any antiarrhythmics. She denied chest pain on admission but she states that she has chest pains had it for 2 months. He goes through to her back. She's had this before. Her last cardiac catheterization was in April 2016 at that time she got have LV gram because of her creatinine but she was found to have a widely patent left main coronary artery as well as the LAD being patent with a small vessel having 50% stenosis at its apical segment of 50% stenosis as well. The circumflex artery had 50-60% stenosis in a large first obtuse marginal branch that was actually angiographically better than it was in 2004. The RCA stents were widely patent. Should be done my exam that she has chest wall tenderness. She does have some renal insufficiency. CC: Jonathan Flores MD - Home Medications and Allergies Home Medications: Home Medications Medication Instructions Recorded Confirmed Type Albuterol Sulfate [Proair HFA] 2 puff INH Q6H PRN 03/11/15 09/06/16 History Aspirin [Ecotrin] 325 mg PO DAILY 03/11/15 09/06/16 History Atorvastatin Calcium [Lipitor] 80 mg PO DAILY 03/11/15 09/06/16 History Digoxin Tab [Lanoxin Tab] 0.125 mg PO DAILY 03/11/15 09/06/16 History Gabapentin Cap/Tab [Neurontin 600 mg PO TID 03/11/15 09/06/16 History Cap/Tab] Glyburide,Micronized [Glyburide 6 mg PO BID W/MEALS 03/11/15 09/06/16 History Micronized] HYDROcodone/ACETAMIN 10-325 [[place] 1 tablet PO Q6H 03/11/15 09/06/16 History 10-325] Isosorbide Mononitrate [Imdur] 60 mg PO DAILY 03/11/15 09/06/16 History Magnesium Oxide 400 mg PO DAILY 03/11/15 09/06/16 History Metoclopramide Tab [Reglan Tab] 10 mg PO DAILY 03/11/15 09/06/16 History Metoprolol Tartrate 12.5 mg PO BID 03/11/15 09/06/16 History Pantoprazole Tab [Protonix Tab] 40 mg PO BID 03/11/15 09/06/16 History PARoxetine HCl [Paxil] 80 mg PO DAILY 06/26/15 09/06/16 History traZODone [Desyrel] 150 mg PO BID 06/26/15 09/06/16 History Fenofibrate [Tricor] 145 mg PO DAILY 05/08/16 09/06/16 History Meclizine [Antivert] 25 mg PO TID PRN 05/08/16 09/06/16 History Montelukast Tab [Singulair Tab] 10 mg PO DAILY 05/08/16 09/06/16 History Clopidogrel [Plavix] 75 mg PO DAILY 06/20/16 09/06/16 History Lisinopril [Prinivil] 20 mg PO DAILY 06/20/16 09/06/16 History Methocarbamol Tab [Robaxin Tab] 500 mg PO TID PRN 06/20/16 09/06/16 History clonazePAM TAB [KlonoPIN] 1 mg PO TID 06/20/16 09/06/16 History ARIPiprazole [Abilify] 2 mg PO DAILY 09/06/16 09/06/16 History Diclofenac 1% Gel [Voltaren 1% Gel] 1 applic DAILY PRN 09/06/16 09/06/16 History Meloxicam 7.5 mg PO DAILY 09/06/16 09/06/16 History Promethazine Tab [Phenergan Tab] 25 mg PO Q8HR PRN 09/06/16 09/06/16 History Insulin Aspart Prot/Asp 70/30 50 unit SUBCUT AC SUPPER #7 unit 09/08/16 Rx [NovoLOG Mix 70/30] Insulin Aspart Prot/Asp 70/30 60 unit SUBCUT AC BREAKFAST #1 unit 09/08/16 Rx [NovoLOG Mix 70/30] Oxycodone HCl/Acetaminophen 1 each PO BEDTIME #20 09/08/16 Rx [Percocet 10-325 mg Tablet] Allergies/Adverse Reactions: Allergies Allergy/AdvReac Type Severity Reaction Status Date / Time fluticasone Allergy Intermediate MOUTH SORES Verified 09/29/16 18:36 [From Advair Diskus] morphine Allergy Intermediate RASH Verified 09/29/16 18:36 salmeterol Allergy Intermediate MOUTH SORES Verified 09/29/16 18:36 [From Advair Diskus] venom-honey bee Allergy Unknown/Unable Verified 09/29/16 18:36 [bee venom (honey bee)] to obtain Review of systems: Constitutional: Denies anorexia, chills, fatigue, fever, frequent falls, night sweats, weight gain, weight loss Eyes: Denies visual changes or loss of vision Ears: Denies decreased hearing, vertigo Nose, mouth and throat: Denies dysphagia, epistaxis, headaches, neck pain, tongue swelling, Neck: Denies thyromegaly or masses. No stiffness. Cardiovascular: as per HPI Respiratory: Denies cough, dyspnea, hemoptysis, dyspnea on exertion, wheezing, snoring Gastrointestinal: Denies abdominal pain, constipation, dyspepsia, dysphagia, hematemesis, hematochezia, melena, nausea, vomiting Genitourinary: Denies dysuria, hematuria, nocturia Musculoskeletal: Denies arthralgias, joint swelling, muscle weakness, myalgias Neurological: Complains of left-sided body weakness. No seizures or prior strokes. Psychiatric: Denies anxiety, confusion, depression Endocrine: Denies cold intolerance, fatigue, heat intolerance Hematologic/Lymphatic: Denies easy bleeding, easy bruising Dermatologic: Denies Rash, itching, shingles Medical,Surgical,& Family Hx - Medical History Cardio: History of: CAD, Hypertension, [place] Psychological: History of: Anxiety Disorders, Depression Neurology: History of: Neurological Problems (diabetic neuropathy) No history of: Seizures HEENT: History of: Eye Problem (WEARS GLASSES) Endocrine: History of: Diabetes Mellitus (IDDM), Diabetes Mellitus (NIDDM), Dyslipidemia No history of: Adrenal Disease, Thyroid Disorder, Endocrine Cancer, Endocrine Problems Rheumatology: History of;: Fibromyalgia Respiratory: History of: COPD Renal: No history of: Renal (Kidney) Cancer, Dialysis, Renal Failure, Renal Problems Genitourinary: History of: Bladder Problem (LEAKAGE), Recurring Urinary Tract Infections, Problems (STRESS INCONTINENCE) No history of: Kidney Stones, Genitourinary Cancer Gastrointestinal: History of: GERD Musculoskeletal: History of: Musculoskeletal Problems (OSTEOARTHRITIS) No history of: Amputation Reproductive: History of: Reproductive Problems (ABNORMAL VAGINAL BLEEDING HISTORY (HYSTERECTOMY)) Other: History of: Miscellaneous Medical Problems (OBESITY) - Surgical History Cardiac Surgeries: Sugical HX of: Cardiac Catheterization, Cardiac Surgery ( STENTS X 3) Thoracic Surgeries: Patient denies;: Kidney (Renal Surgery), Lithotripsy, Nephrectomy, Organ Transplant HEENT Surgeries: Surgical HX of: Tonsilectomy & Adenoidectomy Patient denies: Eye Surgery Abdominal Surgeries: Surgical HX of: Abdominal Surgery, EGD, Hernia Repair Patient denies: Appendectomy, Cholecystectomy, Colonoscopy, Gastric Bypass Surgery Reproductive Surgeries: Surgical HX of;: Breast Surgery (biopsy-benign), Gynecologic Surgery, Hysterectomy Patient denies;: Section, Cystoscopy, Dilation and Curettage, Genitourinary Surgery, Tubal Ligation Orthopedic Surgeries: Surgical HX of;: Orthopedic Surgery (SHOULDER REPKLACEMENT (LEFT)) Patient denies;: Implanted Devices, Spinal Surgery, Total Hip Replacement, Total Knee Replacement - Family History Family History: Reports;: Family Diabetes (BRO,DAUGHTER,COUSIN), Family Heart Disease (DAD,MOM,BRO (HEART DISEASE)), Family Hypertension (MOM), Family Psychiatric Problems (AUNT), Family Stroke (MOM, MAT GF,MAT AUNT) Denies;: Family Anesthesia Reaction, Family Hematology, Additional Family History Comment Only: Family Cancer (MOM (LUNG),DAD(THROAT WITH MET)) - Social History Smoking Status: Never smoker Frequency of Alcohol Use: None Type of Drug Use: None Physical Examination Vital Signs Temp Pulse Resp BP Pulse Ox 98.3 F 49 L 16 111/55 92 L 09/29/16 18:32 09/29/16 18:32 09/29/16 18:32 09/29/16 18:32 09/29/16 18:32 Other: General appearance: Obese, no acute distress Head exam: normal inspection, atraumatic Eye exam: Pupils are equal and reactive. EOMI. There is no trauma. Ear exam: Anatomically normal. Normal auditory acuity to conversation. Oral exam: No significant oral lesions. Neck exam: normal inspection no JVD. No carotid bruit. Trachea is in midline. Respiratory exam: clear to auscultation bilaterally anteriorly and bilaterally with good air movement. No rales, rhonchi or wheezes. Cardiovascular exam: regular rate and rhythm, no murmur or gallop or rub. No precordial lift. No bruits over the major arteries. Chest wall/torso: Anatomically normal. Tenderness to palpation of the anterior chest wall. Peripheral Pulses: 2+ throughout. GI/Abdominal exam: normal bowel sounds, soft and nontender, no abdominal bruits or pulsatile masses. Musculoskeletal/Extremities exam: normal inspection without edema or cyanosis. No deformities or trauma. Neurological exam: alert, oriented X3. There is no gross neurologic deficits. Psychiatric exam: normal affect, normal mood. Cognitive function is grossly intact. Skin exam: normal color, warm. No rashes or other skin lesions. Result/EKG - Labs CBC & BMP: 09/30/16 06:26 09/30/16 06:26 Lab Results: I have reviewed the past 24 hour labs Labs: Laboratory Results - last 24 hr 09/29/16 09/29/16 09/30/16 22:16 23:47 06:26 WBC 7.3 RBC 3.95 Hgb 12.0 Hct 37.1 MCV 93.9 MCH 30 MCHC 32.3 RDW 13.6 Plt Count 223 MPV 11.1 Neut % (Auto) 46.4 Lymph % (Auto) 42.1 [place] % (Auto) 5.6 Eos % (Auto) 4.8 Baso % (Auto) 0.7 Neut # (Auto) 3.4 Lymph # (Auto) 3.1 [place] # (Auto) 0.4 Eos # (Auto) 0.4 Baso # (Auto) 0.1 Immature Gran % 0.4 Nucleated RBC % 0.0 Immature Gran # 0.03 Nucleated RBCs # 0.00 Sodium Potassium Chloride Carbon Dioxide Anion Gap BUN Creatinine GFR Calculation BUN/Creatinine Ratio Glucose POC Glucose 222 H Calculated Osmolality Calcium Troponin I 0.027 Triglycerides Cholesterol LDL Cholesterol VLDL Cholesterol HDL Cholesterol Heart Disease Risk Ratio 09/30/16 09/30/16 09/30/16 06:26 06:26 06:26 WBC RBC Hgb Hct MCV MCH MCHC RDW Plt Count MPV Neut % (Auto) Lymph % (Auto) [place] % (Auto) Eos % (Auto) Baso % (Auto) Neut # (Auto) Lymph # (Auto) [place] # (Auto) Eos # (Auto) Baso # (Auto) Immature Gran % Nucleated RBC % Immature Gran # Nucleated RBCs # Sodium 143 Potassium 4.3 Chloride 107 Carbon Dioxide 29 Anion Gap 11.3 BUN 25 H Creatinine 1.40 H GFR Calculation 52 BUN/Creatinine Ratio 17.00 Glucose 306 H POC Glucose Calculated Osmolality 300.0 Calcium 8.1 L Troponin I 0.034 Triglycerides 833 H Cholesterol 208 H LDL Cholesterol 72.0 VLDL Cholesterol 166.6 HDL Cholesterol 37 L Heart Disease Risk Ratio 5.62 09/30/16 09/30/16 09/30/16 07:48 08:38 12:21 WBC RBC Hgb Hct MCV MCH MCHC RDW Plt Count MPV Neut % (Auto) Lymph % (Auto) [place] % (Auto) Eos % (Auto) Baso % (Auto) Neut # (Auto) Lymph # (Auto) [place] # (Auto) Eos # (Auto) Baso # (Auto) Immature Gran % Nucleated RBC % Immature Gran # Nucleated RBCs # Sodium Potassium Chloride Carbon Dioxide Anion Gap BUN Creatinine GFR Calculation BUN/Creatinine Ratio Glucose POC Glucose 324 H 375 H Calculated Osmolality Calcium Troponin I 0.027 Triglycerides Cholesterol LDL Cholesterol VLDL Cholesterol HDL Cholesterol Heart Disease Risk Ratio - Impressions Impressions: The patient did initially have some atrial fibrillation on admission but is normal sinus rhythm at this time. Quality Measures - Stroke Onset of Symptoms Date: 09/29/16 Onset of Symptoms Time: 16:00 Symptom Onset Unknown: No
--- NOTE | 2016-09-30 17:01 | ECHO Report ---
Susan Rios Exam Date: 09/30/2016 14:25 Referring Physician: Technologist: Rose Marie Toro RDCS Age: 65 Ht (in): 66 Wt (lb): 264 Gender: F Exam Location: [facility] Echo Indications: Left sided weakness, IDDM, COPD, Acute CVA, Essential (primary) hypertension BP: 130 / 65 HR: 70 Rhythm: Sinus Technical Quality: IMPRESSIONS 1. Left ventricle at worst is mildly increased in size. Ejection 60%. Moderate concentric left ventricular hypertrophy with grade 1 diastolic dysfunction. 2. Right ventricle is normal size and function. 3. Left atrium is mildly moderately dilated. 4. Right atrium is mildly dilated. 5. Minimally sclerotic aortic valve with trace regurgitation otherwise unremarkable. 6. Mild tricuspid regurgitation. 7. Mildly elevated right-sided pressures. MEASUREMENTS (Male / Female) Normal Values 2D ECHO LV Diastolic Diameter PLAX 6.4 cm 4.2 - 5.9 / 3.9 - 5.3 cm LV Systolic Diameter PLAX 3.9 cm LV Fractional Shortening PLAX 39.9 % IVS Diastolic Thickness 1.6 cm 0.6 - 1.0 / 0.6 - 0.9 cm LVPW Diastolic Thickness 1.6 cm 0.6 - 1.0 / 0.6 - 0.9 cm RV Internal Dim ED PLAX 3.4 cm Aortic Root Diameter 3.1 cm LA Systolic Diameter LX 4.9 cm 3.0 - 4.0 / 2.7 - 3.8 cm DOPPLER TR Peak Velocity 286.0 cm/s TR Peak Gradient 32.7 mmHg FINDINGS Left Ventricle It worse mildly increased left ventricular cavity size. Moderate left ventricular hypertrophy. Left ventricular ejection fraction is estimated at 60 %. Grade 1 diastolic dysfunction. Right Ventricle The right ventricle is normal in size and function. Right Atrium The right atrium is mildly enlarged. Left Atrium Mild to moderately increased left atrial size. Mitral Valve Morphologically normal mitral valve. Trace mitral valve regurgitation. Aortic Valve Aortic valve tricuspid structure with sclerosis but without stenosis. Trace aortic valve regurgitation. Tricuspid Valve Morphologically normal tricuspid valve. Mild tricuspid valve regurgitation. Tricuspid regurgitation velocities suggest a PAP of 43 mmHg. Pulmonic Valve Morphologically normal pulmonic valve without significant stenosis. There is no pulmonic regurgitation. Pericardium Normal pericardium without effusion. Aorta Normal ascending aorta dimension. Junior Philip MD (Electronically Signed) Final Date: 30 September 2016 17:00
--- NOTE | 2016-09-30 17:45 | Neurology Consult Note ---
History of Present Illness History of present illness: Ms. Rios is a 65 year old right-handed white lady with a medical history of diabetes mellitus, morbid obesity, hypertension presents with complaints of left -sided weakness. Patient states she was at a department store in [facility] around 4 PM when she developed left-sided weakness. She states her symptoms began almost suddenly though admits she was not feeling well the whole day. She states that while at the department store lost her balance and almost fell, developed slurred speech, could not make use of her left leg due to weakness, kept dropping sandwich from her left hand, and then developed a headache on the left side of her head. She denies any chest pain, shortness of breath, fever, nausea, vomiting, diarrhea, melena, bright blood per rectum. MRI of the brain is unremarkable for any acute pathology. Triglycerides are 800. UA is positive however microbiology is negative. Toxicology is negative. Home Medications Medication Instructions Recorded Confirmed Type Albuterol Sulfate [Proair HFA] 2 puff INH Q6H PRN 03/11/15 09/06/16 History Aspirin [Ecotrin] 325 mg PO DAILY 03/11/15 09/06/16 History Atorvastatin Calcium [Lipitor] 80 mg PO DAILY 03/11/15 09/06/16 History Digoxin Tab [Lanoxin Tab] 0.125 mg PO DAILY 03/11/15 09/06/16 History Gabapentin Cap/Tab [Neurontin 600 mg PO TID 03/11/15 09/06/16 History Cap/Tab] Glyburide,Micronized [Glyburide 6 mg PO BID W/MEALS 03/11/15 09/06/16 History Micronized] HYDROcodone/ACETAMIN 10-325 [[place] 1 tablet PO Q6H 03/11/15 09/06/16 History 10-325] Isosorbide Mononitrate [Imdur] 60 mg PO DAILY 03/11/15 09/06/16 History Magnesium Oxide 400 mg PO DAILY 03/11/15 09/06/16 History Metoclopramide Tab [Reglan Tab] 10 mg PO DAILY 03/11/15 09/06/16 History Metoprolol Tartrate 12.5 mg PO BID 03/11/15 09/06/16 History Pantoprazole Tab [Protonix Tab] 40 mg PO BID 03/11/15 09/06/16 History PARoxetine HCl [Paxil] 80 mg PO DAILY 06/26/15 09/06/16 History traZODone [Desyrel] 150 mg PO BID 06/26/15 09/06/16 History Fenofibrate [Tricor] 145 mg PO DAILY 05/08/16 09/06/16 History Meclizine [Antivert] 25 mg PO TID PRN 05/08/16 09/06/16 History Montelukast Tab [Singulair Tab] 10 mg PO DAILY 05/08/16 09/06/16 History Clopidogrel [Plavix] 75 mg PO DAILY 06/20/16 09/06/16 History Lisinopril [Prinivil] 20 mg PO DAILY 06/20/16 09/06/16 History Methocarbamol Tab [Robaxin Tab] 500 mg PO TID PRN 06/20/16 09/06/16 History clonazePAM TAB [KlonoPIN] 1 mg PO TID 06/20/16 09/06/16 History ARIPiprazole [Abilify] 2 mg PO DAILY 09/06/16 09/06/16 History Diclofenac 1% Gel [Voltaren 1% Gel] 1 applic DAILY PRN 09/06/16 09/06/16 History Meloxicam 7.5 mg PO DAILY 09/06/16 09/06/16 History Promethazine Tab [Phenergan Tab] 25 mg PO Q8HR PRN 09/06/16 09/06/16 History Insulin Aspart Prot/Asp 70/30 50 unit SUBCUT AC SUPPER #7 unit 09/08/16 Rx [NovoLOG Mix 70/30] Insulin Aspart Prot/Asp 70/30 60 unit SUBCUT AC BREAKFAST #1 unit 09/08/16 Rx [NovoLOG Mix 70/30] Oxycodone HCl/Acetaminophen 1 each PO BEDTIME #20 09/08/16 Rx [Percocet 10-325 mg Tablet] Allergies Allergy/AdvReac Type Severity Reaction Status Date / Time fluticasone Allergy Intermediate MOUTH SORES Verified 09/29/16 18:36 [From Advair Diskus] morphine Allergy Intermediate RASH Verified 09/29/16 18:36 salmeterol Allergy Intermediate MOUTH SORES Verified 09/29/16 18:36 [From Advair Diskus] venom-honey bee Allergy Unknown/Unable Verified 09/29/16 18:36 [bee venom (honey bee)] to obtain 12 point system: reviewed and no additional remarkable complaints except as stated Medical,Surgical,& Family Hx - Medical History Cardio: History of: CAD, Hypertension, [place] Psychological: History of: Anxiety Disorders, Depression Neurology: History of: Neurological Problems (diabetic neuropathy) No history of: Seizures HEENT: History of: Eye Problem (WEARS GLASSES) Endocrine: History of: Diabetes Mellitus (IDDM), Diabetes Mellitus (NIDDM), Dyslipidemia No history of: Adrenal Disease, Thyroid Disorder, Endocrine Cancer, Endocrine Problems Rheumatology: History of;: Fibromyalgia Respiratory: History of: COPD Renal: No history of: Renal (Kidney) Cancer, Dialysis, Renal Failure, Renal Problems Genitourinary: History of: Bladder Problem (LEAKAGE), Recurring Urinary Tract Infections, Problems (STRESS INCONTINENCE) No history of: Kidney Stones, Genitourinary Cancer Gastrointestinal: History of: GERD Musculoskeletal: History of: Musculoskeletal Problems (OSTEOARTHRITIS) No history of: Amputation Reproductive: History of: Reproductive Problems (ABNORMAL VAGINAL BLEEDING HISTORY (HYSTERECTOMY)) Other: History of: Miscellaneous Medical Problems (OBESITY) - Surgical History Cardiac Surgeries: Sugical HX of: Cardiac Catheterization, Cardiac Surgery ( STENTS X 3) Thoracic Surgeries: Patient denies;: Kidney (Renal Surgery), Lithotripsy, Nephrectomy, Organ Transplant HEENT Surgeries: Surgical HX of: Tonsilectomy & Adenoidectomy Patient denies: Eye Surgery Abdominal Surgeries: Surgical HX of: Abdominal Surgery, EGD, Hernia Repair Patient denies: Appendectomy, Cholecystectomy, Colonoscopy, Gastric Bypass Surgery Reproductive Surgeries: Surgical HX of;: Breast Surgery (biopsy-benign), Gynecologic Surgery, Hysterectomy Patient denies;: Section, Cystoscopy, Dilation and Curettage, Genitourinary Surgery, Tubal Ligation Orthopedic Surgeries: Surgical HX of;: Orthopedic Surgery (SHOULDER REPKLACEMENT (LEFT)) Patient denies;: Implanted Devices, Spinal Surgery, Total Hip Replacement, Total Knee Replacement - Family History Family History: Reports;: Family Diabetes (BRO,DAUGHTER,COUSIN), Family Heart Disease (DAD,MOM,BRO (HEART DISEASE)), Family Hypertension (MOM), Family Psychiatric Problems (AUNT), Family Stroke (MOM, MAT GF,MAT AUNT) Denies;: Family Anesthesia Reaction, Family Hematology, Additional Family History Comment Only: Family Cancer (MOM (LUNG),DAD(THROAT WITH MET)) - Social History Smoking Status: Never smoker Frequency of Alcohol Use: None Type of Drug Use: None Exam - Constitutional Vitals: Period Temp Pulse Resp BP Sys/Ordoñez Pulse Ox Last 24 Hr 97.7 F-98.8 F 53-68 18-20 102-165/51-87 2-96 Exam: GENERAL: Patient is in no acute distress. NECK: Neck is supple. There is no JVD. No carotid bruits present. No thyroid masses. CVS: First and second heart sounds are normal. There is no S3 present. Regular rate and rhythm. RESPIRATORY: Lungs are clear to auscultation without any rales or rhonchi. ABDOMEN: Soft and non-tender. Bowel sounds are present. There is no hepatosplenomegaly. EXT: There is no palpable edema. Peripheral pulses are present. Skin: No rashes Central Nervous system: General: Alert, awake and Oriented x 3 Speech: Fluent Comprehension: Intact and normal Facial expressions: Normal Cranial Nerves: CN1/Olfactory: Normal CN II/ Optic: Normal, Visual Padilla unreliable CN III, and : KATHIE & EOMI CN V: Normal & intact CN VII: face is symmetric CNVIII: Normal CN XI/X/XI/XII: Intact and Normal Motor: Bulk and Tone is normal. Strength in the right 5/5 Strength in the left 5/5 Sensory: Grossly intact for all the modalities of PP, LT and temp sense Reflexes: 1+ and symmetrical Cerebellar function: Normal finger to nose and heel to chávez testing. Toes: Equivocal Gait: Not tested at this time Results - Labs CBC & BMP: 09/30/16 06:26 09/30/16 06:26 Assessment and Plan (1) Left-sided weakness Status: Acute Assessment and plan: It is more subjective. Neuro exam is nonfocal. MRI failed to show any evidence of an acute stroke. Symptoms could very well be due to acute UTI. Stop aspirin. Continue Plavix. Schedule outpatient PT and OT Okay to go home when okay with PCP Current Visit: Yes
--- NOTE | 2016-09-30 18:01 | Magnetic Resonance Report ---
History: Left-sided weakness. Slurred speech Date: 09/30/2016 Study: MRA neck with and without IV contrast Comparison exam: No previous similar exam A 3-D [id number] MRA of the neck was performed with and without 20 ml Dotarem contrast IV contrast on the 1.5 Melvi magnet. In addition to axial source images, 3-D maximum intensity projection images were also archived and evaluated. There is a common origin of the left common carotid artery and innominate artery. There is no high-grade stenosis at the origins of the great vessels. There is antegrade flow within the vertebral arteries. There is no significant common carotid artery stenosis bilaterally. There is no significant stenosis of the origins of the internal or external carotid arteries bilaterally. There is prominent tortuosity of either internal carotid artery with hairpin loop of either internal carotid artery 2.5 to 3 cm distal to its respective origin. There is 32% diameter reduction narrowing of the right internal carotid artery and 34% diameter reduction of the left internal carotid artery, at the minimum, respectively, in the area of loop formation, using NASCET criteria. Normal right ICA measures 3.8 mm; normal left measures 4.1 mm. There is also suggestion of some beading of either internal carotid artery in these areas. There is no significant finding otherwise. Impression: Tortuosity and beading of either internal carotid artery, suggesting potential changes of fibromuscular dysplasia. There is 32% diameter reduction stenosis of the right internal carotid artery and 34% of the left PROCEDURE INTERPRETED AT [facility] Final Report Signed by: Dr. Kandy Martinez
[2016-10-01 06:48] LABS: Calcium 8.3 MG/DL (8.5-10.1); Osmolality,Calculated 295.5 MOS/KG (273-304); Potassium 5.6 MMOL/L (3.5-5.1)
--- NOTE | 2016-10-01 08:51 | Hospitalist Progress Note ---
Assessment and Plan (1) Dyslipidemia Status: Acute Assessment and plan: Patient has mixed dyslipidemia with low HDL. Total cholesterol 208 mg percent. Will continue atorvastatin and TriCor this point. It looks to me that could benefit from nystatin in the long run to improve on HDL. Current Visit: No (2) Cerebrovascular accident Status: Acute Assessment and plan: Motor function now returned to normal MRI is negative for intracranial pathology including absence of acute MT. Patient has been seen by neurology and cleared for discharge at this point. I explained to her that they the MRI was negative however if the symptoms of weakness on the left side return this patient should have an MRI of her neck to evaluate for possibility of myelopathy. Current Visit: Yes (3) Atrial fibrillation Status: Acute Assessment and plan: She has controlled ventricular response. We will do an echocardiogram to assess the cardiac chambers including the left atrial appendage.Patient is on full fractionated heparin dosing. We may have to reduce the dose of aspirin to baby aspirin. Current Visit: Yes (4) Coronary artery disease Status: Acute Assessment and plan: Patient is planned for stress test while here this will be a Lexiscan. Etiology is yet to see her today. Will hold off on discharge until cardiology workup was complete. Current Visit: Yes Hospitalist: Subjective Interval history: Patient admitted to the hospital yesterday with what was thought to be possible. MRI has not revealed any acute intracranial pathology. Neurology has seen the patient and is cleared for discharge. She was also seen by cardiology for known coronary artery disease. This plan to have a stress test ( Lexiscan) today. She will lather adamant that she wanted to see her primary seaming machine operator who she sees as an outpatient but we did explain to her that they work together she may end up being seen by the seaming machine operator on-call to do the stress test. Agreeable to staying going along with the procedure. Is chest pain-free at this point. She can move all limbs though there is some residual weakness in the left lower extremity. No paresthesias. No signs of myelopathy. Exam - Constitutional Vitals: Period Temp Pulse Resp BP Sys/Ordoñez Pulse Ox Last 24 Hr 97.4 F-98.6 F 67-74 18-20 118-215/66-105 91-93 General appearance: over weight - Head Head exam: Present: normal inspection, normocephalic - Eye Eye exam: Present: EOMI Pupils: Present: KATHIE - ENT ENT exam: Present: normal oropharynx - Neck Neck exam: Present: normal inspection - Respiratory Respiratory exam: Present: clear to auscultation bilaterally - Cardiovascular Cardiovascular exam: Present: regular rate and rhythm - GI/Abdominal GI/Abdominal exam: Present: normal bowel sounds, soft - Extremities Exam Extremities exam: Present: full ROM, other (Some residual weakness to resistance in the left lower extremity compared to the right) - Back Exam Back exam: Present: normal inspection - Neurological Exam Neurological exam: Present: alert, oriented X3, CN II-XII intact - Psychiatric Psychiatric exam: Present: normal affect, normal mood - Skin Skin exam: Present: normal color, warm, dry Results - Labs CBC & BMP: 09/30/16 06:26 10/01/16 05:41 Lab Results: I have reviewed the past 24 hour labs (Noted potassium of 5.6. This cannot be explained. May have to repeat potassium prior to discharge.) Quality Measures - Stroke Onset of Symptoms Date: 09/29/16 Onset of Symptoms Time: 16:00 Symptom Onset Unknown: No
[2016-10-01] MEDS: FENOFIBRATE 145 MG TABLET PO SCH (09:52)
[2016-10-01] MEDS: DIGOXIN 0.125 MG TABLET PO SCH (09:52)
[2016-10-01] MEDS: ATORVASTATIN 80 MG TABLET PO SCH (09:52)
[2016-10-01] MEDS: GABAPENTIN 300 MG CAPSULE PO SCH ×3 (09:52→21:20)
[2016-10-01] MEDS: CLOPIDOGREL 75 MG TABLET PO SCH (09:52)
[2016-10-01] MEDS: ENOXAPARIN 100 MG/ML SYRINGE SUBCUT SCH ×2 (09:53→21:20)
[2016-10-01] MEDS: INSULIN LISPRO 100 UNIT/ML SUBCUT SCH ×4 (09:53→21:15)
[2016-10-01] MEDS: ARIPiprazole 2 MG TABLET PO SCH (09:54)
[2016-10-01] MEDS ORDERED: ARIPiprazole 2 MG TABLET PO ONE (10:00)
--- NOTE | 2016-10-01 17:24 | Cardiology Progress Note ---
I, Nichole Salcido RN, am scribing for, and in the presence of, Luis Madison MD 17:22. Assessment and Plan (1) Coronary artery disease Status: Chronic Assessment and plan: The patient is having chest pain but her last cath for 5 months ago showed actual improvement of CAD. There is no critical disease. She has some chest wall pain. She has declined a treadmill/Cardiolite, says it is not reliable. Plan/recommendation: Treat for chest wall pain-review meds-tramadol, Tylenol, gabapentin Avoid NSAIDs because of her renal insufficiency I would favor not recath through this time unless she and Dr. Denney wanted-- later, OP Also main reason to come and was question of left-sided weakness, which raise question of a TIA. Will defer to you about evaluation and treatment. The symptoms seem to be improving From my standpoint she may be discharged when you say so. She will follow-up with Dr. Denney about 3 or 4 weeks and she and he can reassess the need for a re- cath or not. Current Visit: Yes Qualifiers: Coronary Disease-Associated Artery/Lesion type: [place] artery [place] vs. transplanted heart: [place] heart (2) HTN (hypertension) Status: Chronic Current Visit: Yes (3) History of coronary artery stent placement Status: Chronic Current Visit: Yes (4) Renal insufficiency Status: Chronic Current Visit: Yes (5) Chest wall pain Status: Acute Current Visit: Yes Cardiology - PN: Subj Interval history: Ms. Rios is a 65 year old female who has been followed by Dr. Faust for coronary disease previously. The patient was admitted with left sided weaknesses for about 2 months that has gotten worse recently. We're asked to see the patient as was noted issues and atrial fibrillation at the time remission. Looking back over chart she had episode of atrial fibrillation previously. I don't find that she is on any antiarrhythmics. She says she has had chest pain for 2 months that radiates to her back. Her last cardiac catheterization was in April 2016 at that time she got have LV gram because of her creatinine but she was found to have a widely patent left main coronary artery as well as the LAD being patent with a small vessel having 50% stenosis at its apical segment of 50% stenosis as well. The circumflex artery had 50-60 % stenosis in a large first obtuse marginal branch that was actually angiographically better than it was in 2004. The RCA stents were widely patent. Currently she denies chest pain or palpitations. She reports she is short of breath is improving yesterday she is having some dizziness. Blood pressures been elevated, it is better this morning 118/66. Currently telemetry monitoring shows sinus rhythm with heart rates in the 60s. Troponin has been negative 4 since admission. Creatinine was 2.0 on admission, it is down to 1.2. Potassium is elevated at 5.6. Exam (Progress Note) - Constitutional Vitals: Period Temp Pulse Resp BP Sys/Ordoñez Pulse Ox Last 24 Hr 97.4 F-98.6 F 67-74 18-20 118-215/66-105 91-93 General appearance: no acute distress, morbidly obese - Head Head exam: Absent: abrasion, hematoma - Eye Eye exam: Absent: periorbital swelling, laceration to eyelids - Neck Neck exam: Absent: tenderness - Respiratory Respiratory exam: Present: clear to auscultation bilaterally. Absent: accessory muscle use, chest wall tenderness - Cardiovascular Cardiovascular exam: Present: regular rate and rhythm. Absent: rubs - GI/Abdominal GI/Abdominal exam: Present: normal bowel sounds, tenderness, soft. Absent: distended - Extremities Exam Extremities exam: Absent: edema - Neurological Exam Neurological exam: Present: alert, oriented X3 - Psychiatric Psychiatric exam: Present: normal affect, normal mood - Skin Skin exam: Present: warm, dry Result/EKG - Labs CBC & BMP: 09/30/16 06:26 10/01/16 05:41 Lab Results: I have reviewed the past 24 hour labs Labs: Laboratory Results - last 24 hr 09/30/16 09/30/16 09/30/16 12:21 15:08 20:21 Sodium Potassium Chloride Carbon Dioxide Anion Gap BUN Creatinine GFR Calculation BUN/Creatinine Ratio Glucose POC Glucose 375 H 326 H 307 H Calculated Osmolality Calcium Magnesium 10/01/16 05:41 Sodium 139 Potassium 5.6 H Chloride 101 Carbon Dioxide 33 H Anion Gap 10.6 BUN 21 H Creatinine 1.20 H GFR Calculation 63 BUN/Creatinine Ratio 17.00 Glucose 394 H POC Glucose Calculated Osmolality 295.5 Calcium 8.3 L Magnesium 2.0 - EKG EKG results: interpreted by me EKG shows: sinus rhythm Quality Measures - Stroke Onset of Symptoms Date: 09/29/16 Onset of Symptoms Time: 16:00 Symptom Onset Unknown: No Specialty Discharge - Follow Up or Referrals Follow up with: Ana Faust DO [Physician] - (3-4 weeks with ekg ) Gricelda Barcenas Dale, MD, personally performed the services described in this documentation, ascribed by Nichole Salcido RN in my presence, and it is both accurate and complete 722 .
[2016-10-01] MEDS: ACETAMINOPHEN 325 MG TABLET PO SCH ×2 (17:42→21:21)
[2016-10-01] MEDS ORDERED: traMADol 50 MG TABLET PO SCH (21:00)
[2016-10-01] MEDS: traMADol 50 MG TABLET PO SCH (21:18)
--- NOTE | 2016-10-02 07:08 | Discharge Summary ---
Hospital Course - Hospital Course Hospital Course: 65-year-old female diabetic hypertensive with paroxysmal atrial fibrillation and largely endothelial coronary artery disease had presented with left-sided weakness. CT scan of the head was unremarkable with unremarkable MRA of the neck MRI of the head echocardiogram. The patient was seen by neurology and cleared for ischemic neurologic event with suggestion of possible outpatient physical rehab. 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 While in hospital the patient's vital signs were stable she remained in sinus rhythm throughout. Her capillary blood glucoses were suboptimal however without further adjustment in her diabetic care. She is being discharged at this time to resume her prehospitalization regimen. Specialty Discharge - Follow Up or Referrals Follow up with: Ana Faust DO [Physician] - (3-4 weeks with ekg ) Discharge Plan - Discharge Data Disposition: Disch To Home/Self Care Condition at Discharge: Stable Discharge Diet: diabetic diet Activity: resume usual activities as tolerated - Discharge Medications Continue Pantoprazole Tab [Protonix Tab] 40 mg PO BID Metoclopramide Tab [Reglan Tab] 10 mg PO DAILY Albuterol Sulfate [Proair HFA] 2 puff INH Q6H PRN PRN Reason: Shortness Of Breath/Wheezing HYDROcodone/ACETAMIN 10-325 [[place] 10-325] 1 tablet PO Q6H Metoprolol Tartrate 12.5 mg PO BID Gabapentin Cap/Tab [Neurontin Cap/Tab] 600 mg PO TID Magnesium Oxide 400 mg PO DAILY Atorvastatin Calcium [Lipitor] 80 mg PO DAILY Isosorbide Mononitrate [Imdur] 60 mg PO DAILY Aspirin [Ecotrin] 325 mg PO DAILY Glyburide,Micronized [Glyburide Micronized] 6 mg PO BID W/MEALS Digoxin Tab [Lanoxin Tab] 0.125 mg PO DAILY traZODone [Desyrel] 150 mg PO BID PARoxetine HCl [Paxil] 80 mg PO DAILY Fenofibrate [Tricor] 145 mg PO DAILY Montelukast Tab [Singulair Tab] 10 mg PO DAILY Meclizine [Antivert] 25 mg PO TID PRN PRN Reason: Dizziness Methocarbamol Tab [Robaxin Tab] 500 mg PO TID PRN PRN Reason: Muscle Spasm Lisinopril [Prinivil] 20 mg PO DAILY Promethazine Tab [Phenergan Tab] 25 mg PO Q8HR PRN PRN Reason: Nausea ARIPiprazole [Abilify] 2 mg PO DAILY Diclofenac 1% Gel [Voltaren 1% Gel] 1 applic DAILY PRN PRN Reason: Pain Meloxicam 7.5 mg PO DAILY Insulin Aspart Prot/Asp 70/30 [NovoLOG Mix 70/30] 60 unit SUBCUT AC BREAKFAST #1 unit Clopidogrel [Plavix] 75 mg PO DAILY clonazePAM TAB [KlonoPIN] 1 mg PO TID Insulin Aspart Prot/Asp 70/30 [NovoLOG Mix 70/30] 50 unit SUBCUT AC SUPPER # 7 unit Oxycodone HCl/Acetaminophen [Percocet 10-325 mg Tablet] 1 each PO BEDTIME # 20 - Follow Up or Referral Follow Up: Ana Faust DO [Physician] - (3-4 weeks with ekg ) - Forms/Instructions Exam - Constitutional Vitals: Period Temp Pulse Resp BP Sys/Ordoñez Pulse Ox Last 24 Hr 97.3 F-98.3 F 68-77 16-20 134-181/59-82 92-100 Discharge Results Labs on day of discharge: Labs from last 24 hours 10/01/16 10/01/16 10/01/16 20:16 20:07 15:52 POC Glucose 344 H 373 H 287 H 10/01/16 10/01/16 11:45 07:47 POC Glucose 329 H 332 H DS: Provider Date of admission: 09/29/16 20:51 Primary care physician: . No PCP Attending physician on admission: Jonathan Flores MD Consults: 09/29/16 20:52 Consult to Occupational Therapy [CONS] Routine Reason for Occupational Therapy: Evaluate and Treat Consult to Physical Therapy [CONS] Routine Reason for Physical Therapy: Evaluate and Treat Consult to Physician [CONS] Routine Comment: Consulting Provider: 09/29/16 20:54 Consult to Physician [CONS] Routine Comment: new onset afib Consulting Provider: Cardiology - [facility] Consulting Provider Notified: Yes Consult to Specialist Group: Cardiology When should Consulting Provider be notified: Now Person Notified: Dr. Philpi Date Notified: 09/30/16 Time Notified: 08:03 09/30/16 10:02 Consult to Physician [CONS] Routine Comment: On-call/ Acute CVA Consulting Provider: Miguel Cui Consulting Provider Notified: Yes Consult to Specialist Group: Neurology When should Consulting Provider be notified: Now Person Notified: Dr. Cui Date Notified: 09/30/16 Time Notified: 10:11 Discharging clinician: Jaydon Bhatti MD Expected date of discharge: 10/02/16
[2016-10-02] MEDS: DIGOXIN 0.125 MG TABLET PO SCH (08:57)
[2016-10-02] MEDS: ATORVASTATIN 80 MG TABLET PO SCH (08:57)
[2016-10-02] MEDS: ACETAMINOPHEN 325 MG TABLET PO SCH (08:57)
[2016-10-02] MEDS: GABAPENTIN 300 MG CAPSULE PO SCH (08:57)
[2016-10-02] MEDS: CLOPIDOGREL 75 MG TABLET PO SCH (08:57)
[2016-10-02] MEDS: ENOXAPARIN 100 MG/ML SYRINGE SUBCUT SCH (08:57)
[2016-10-02] MEDS: INSULIN LISPRO 100 UNIT/ML SUBCUT SCH (08:58)
[2016-10-02] MEDS: FENOFIBRATE 145 MG TABLET PO SCH (08:58)
[2016-10-02] MEDS: ARIPiprazole 2 MG TABLET PO SCH (08:58)
[2016-10-02] MEDS: traMADol 50 MG TABLET PO SCH (08:58)
[2016-10-02 09:14] VITALS: BP 163/90
[2016-10-02] MEDS ORDERED: SODIUM POLYSTYRENE SULFATE 15 GM/60 ML BOTTLE PO ONE (09:17)
--- NOTE | 2016-10-02 09:21 | Cardiology Progress Note ---
I, Nichole Salcido RN, am scribing for, and in the presence of, Luis Madison MD 09:20. Assessment and Plan (1) Coronary artery disease Status: Chronic Assessment and plan: Initial assessment and plan 10/01/2016: The patient is having chest pain but her last cath for 5 months ago showed actual improvement of CAD. There is no critical disease. She has some chest wall pain. She has declined a treadmill/Cardiolite, says it is not reliable. Plan/recommendation: Treat for chest wall pain-review meds-tramadol, Tylenol, gabapentin Avoid NSAIDs because of her renal insufficiency I would favor not recath through this time unless she and Dr. Denney wanted-- later, OP Also main reason to come and was question of left-sided weakness, which raise question of a TIA. Will defer to you about evaluation and treatment. The symptoms seem to be improving From my standpoint she may be discharged when you say so. She will follow-up with Dr. Denney about 3 or 4 weeks and she and he can reassess the need for a re- cath or not. Assessment and plan 10/02/2016: Left-sided weakness is less. Still having some chest pain but has reproducible Chest pain at the same point. I suspect this is noncardiac. I am giving a trial of tramadol and Tylenol. She is already on gabapentin. I discussed with her if it continues she could ask Dr. Worrell, her pain specialist, to give her trigger point injection of that area of tenderness. Otherwise, she will see Dr. Denney back in the next 3 or 4 weeks. At this point we will not do a heart catheter or treadmill. I did discuss with the patient. She voiced understanding and agrees with the current plan. Okay with me for discharge when you say so. Of note, potassium is 5.6 yesterday. I do not see where it was treated. I will give her a dose of Kayexalate, 30 mg, p.o. now. Thank you for allowing me to participate in this patient's care Current Visit: Yes Qualifiers: Coronary Disease-Associated Artery/Lesion type: [place] artery [place] vs. transplanted heart: [place] heart (2) HTN (hypertension) Status: Chronic Current Visit: Yes (3) History of coronary artery stent placement Status: Chronic Current Visit: Yes (4) Renal insufficiency Status: Chronic Current Visit: Yes Cardiology - PN: Subj Interval history: Upkeep Mechanic: Dr. Faust Ms. Rios is seen resting in bed in no acute distress. She reports her pain is improved and she feels like she is getting better. She denies shortness of breath, palpitations, or dizziness. panel monitor currently with sinus rhythm, heart rates in the 70s. She is scheduled to go home today. We have her follow-up with Dr. Faust in 3 weeks. She refused stress testing yesterday , Dr. Denney can decide at follow-up if he wishes to pursue this or not. Exam (Progress Note) - Constitutional Vitals: Period Temp Pulse Resp BP Sys/Ordoñez Pulse Ox Last 24 Hr 97.3 F-98.3 F 68-77 16-20 135-181/59-82 92-96 General appearance: no acute distress, morbidly obese - Head Head exam: Absent: abrasion, hematoma - Eye Eye exam: Absent: periorbital swelling, laceration to eyelids - Neck Neck exam: Absent: tenderness - Respiratory Respiratory exam: Present: clear to auscultation bilaterally. Absent: accessory muscle use, chest wall tenderness - Cardiovascular Cardiovascular exam: Present: regular rate and rhythm, rubs - GI/Abdominal GI/Abdominal exam: Present: normal bowel sounds, soft. Absent: distended, tenderness - Extremities Exam Extremities exam: Absent: edema - Neurological Exam Neurological exam: Present: alert, oriented X3 - Psychiatric Psychiatric exam: Present: normal affect, normal mood - Skin Skin exam: Present: warm, dry Result/EKG - Labs CBC & BMP: 09/30/16 06:26 10/01/16 05:41 Lab Results: I have reviewed the past 24 hour labs Labs: Laboratory Results - last 24 hr 10/01/16 10/01/16 10/01/16 07:47 11:45 15:52 POC Glucose 332 H 329 H 287 H 10/01/16 10/01/16 10/02/16 20:07 20:16 07:32 POC Glucose 373 H 344 H 323 H - EKG EKG results: interpreted by me EKG shows: sinus rhythm Quality Measures - Stroke Onset of Symptoms Date: 09/29/16 Onset of Symptoms Time: 16:00 Symptom Onset Unknown: No Specialty Discharge - Follow Up or Referrals Follow up with: Ana Faust DO [Physician] - 10/25/16 9:00 am (3-4 weeks with ekg ) I, Luis Madison MD, personally performed the services described in this documentation, ascribed by Nichole Salcido RN in my presence, and it is both accurate and complete 920 .
== END 2016-10-02 11:05 | disposition home or self-care (01) ==
LOC: SUATTDRO → N.EDINP 18:25 → N.ED 18:25 → SUATTDRO 20:51 → N.2E 21:47
PROVIDERS: ADMIT Internal Medicine Infectious Disease; ATTEND Internal Medicine Cardiovascular Disease

== ENCOUNTER 2016-10-10 10:57 | Inpatient (IN) ==
[2016-10-10] MEDS ORDERED: SODIUM CHLORIDE 0.9% 1,000 ML IV STA (11:29)
[2016-10-10 11:40] LABS: Basophils # 0.1 10*3/uL (0.0-0.2); Basophils % 0.8 % (0.0-0.8); Eosinophils # 0.3 10*3/uL (0.0-0.87); Hematocrit 39.9 VOL% (35.7-47.0); Hemoglobin 12.5 GM/DL (12.0-16.0); Immature Granulocytes % 0.4 %; Immature Granulocytes Absolute 0.04 #; Lymphocytes # 4.1 10*3/uL (1.4-4.0); Lymphocytes % 38.5 % (21.3-54.2); Mean Corpuscular HGB Conc 31.3 GM/DL (32-36); Mean Corpuscular Hemoglobin 30 PG (27-34); Mean Corpuscular Volume 96.4 FL (87-102); Mean Platelet Volume 11.4 FL (9.6-12.0); Monocytes # 0.6 10*3/uL (0.11-0.8); Monocytes % 5.5 % (1.7-12.7); Neutrophils # 5.5 10*3/uL (1.4-7.4); Neutrophils % 51.8 % (38.7-73.9); Platelet Count 298 T/CUMM (130-400); Red Blood Count 4.14 MC/CUMM (3.8-5.5); Red Cell Distribution Width 14.1 % (9.3-17.3); White Blood Count 10.5 T/CUMM (4-12)
--- NOTE | 2016-10-10 11:43 | Emergency Department Note ---
Shalini Barcenas Hilary, am scribing for, and in the presence of, Ady Aleman MD 11: 39. Love Barcenas James D, MD, personally performed the services described in this documentation, ascribed by Alice Loya in my presence, and it is both accurate and complete . Arrival - Arrival Chief Complaint: Neuro Stated Complaint: mini strokes ED Nursing Triage Note: Pt c/o weakness to left side and difficulty getting words out. onset 0700 this morning. pt states she could not hold her bowl and unable to communicate. No slurred speech or facial droop and pt using all extremities without difficulty. Family reports multiple falls and sleeping alot. Pt is drowsy at triage. Mode of Arrival: Wheelchair Limitations: No Limitations Source: Patient, RN Notes Reviewed Time Seen by Provider: 10/10/16 11:20 - History of Present Illness HPI Narrative: Pt is a 65 y/o white female presenting to the ED with c/o of weakness and SOB. Pt confirms SOB and "Dropping things" denies problems eating or drinking. Pt was discharged from the Hospital 7 days ago with a Dx of TIA and left sided weakness. Pt and friend are terrible historians but state that she has been falling and dropping things for 6 days. They reported her falling out of the bathtub and hitting her head a few days ago and is drowsy during triage. Onset (ago): week(s) Allergies/Adverse Reactions: Allergies Allergy/AdvReac Type Severity Reaction Status Date / Time fluticasone Allergy Intermediate MOUTH SORES Verified 10/10/16 11:09 [From Advair Diskus] morphine Allergy Intermediate RASH Verified 10/10/16 11:09 salmeterol Allergy Intermediate MOUTH SORES Verified 10/10/16 11:09 [From Advair Diskus] venom-honey bee Allergy Unknown/Unable Verified 10/10/16 11:09 [bee venom (honey bee)] to obtain Home Medications: Home Medications Medication Instructions Recorded Confirmed Type Albuterol Sulfate [Proair HFA] 2 puff INH Q6H PRN 03/11/15 09/06/16 History Aspirin [Ecotrin] 325 mg PO DAILY 03/11/15 09/06/16 History Atorvastatin Calcium [Lipitor] 80 mg PO DAILY 03/11/15 09/06/16 History Digoxin Tab [Lanoxin Tab] 0.125 mg PO DAILY 03/11/15 09/06/16 History Gabapentin Cap/Tab [Neurontin 600 mg PO TID 03/11/15 09/06/16 History Cap/Tab] Glyburide,Micronized [Glyburide 6 mg PO BID W/MEALS 03/11/15 09/06/16 History Micronized] HYDROcodone/ACETAMIN 10-325 [[place] 1 tablet PO Q6H 03/11/15 09/06/16 History 10-325] Isosorbide Mononitrate [Imdur] 60 mg PO DAILY 03/11/15 09/06/16 History Magnesium Oxide 400 mg PO DAILY 03/11/15 09/06/16 History Metoclopramide Tab [Reglan Tab] 10 mg PO DAILY 03/11/15 09/06/16 History Metoprolol Tartrate 12.5 mg PO BID 03/11/15 09/06/16 History Pantoprazole Tab [Protonix Tab] 40 mg PO BID 03/11/15 09/06/16 History PARoxetine HCl [Paxil] 80 mg PO DAILY 06/26/15 09/06/16 History traZODone [Desyrel] 150 mg PO BID 06/26/15 09/06/16 History Fenofibrate [Tricor] 145 mg PO DAILY 05/08/16 09/06/16 History Meclizine [Antivert] 25 mg PO TID PRN 05/08/16 09/06/16 History Montelukast Tab [Singulair Tab] 10 mg PO DAILY 05/08/16 09/06/16 History Clopidogrel [Plavix] 75 mg PO DAILY 06/20/16 09/06/16 History Lisinopril [Prinivil] 20 mg PO DAILY 06/20/16 09/06/16 History Methocarbamol Tab [Robaxin Tab] 500 mg PO TID PRN 06/20/16 09/06/16 History clonazePAM TAB [KlonoPIN] 1 mg PO TID 06/20/16 09/06/16 History ARIPiprazole [Abilify] 2 mg PO DAILY 09/06/16 09/06/16 History Diclofenac 1% Gel [Voltaren 1% Gel] 1 applic DAILY PRN 09/06/16 09/06/16 History Meloxicam 7.5 mg PO DAILY 09/06/16 09/06/16 History Promethazine Tab [Phenergan Tab] 25 mg PO Q8HR PRN 09/06/16 09/06/16 History Insulin Aspart Prot/Asp 70/30 50 unit SUBCUT AC SUPPER #7 unit 09/08/16 Rx [NovoLOG Mix 70/30] Insulin Aspart Prot/Asp 70/30 60 unit SUBCUT AC BREAKFAST #1 unit 09/08/16 Rx [NovoLOG Mix 70/30] Oxycodone HCl/Acetaminophen 1 each PO BEDTIME #20 09/08/16 Rx [Percocet 10-325 mg Tablet] Review of System - Review of System 12 point system: reviewed and no additional remarkable complaints except as stated - Review of System Constitutional: Present: weakness (generalized). Absent: fever Respiratory: Present: respiratory distress (SOB) Neurological: Present: weakness (generalized and dropping things) Medical,Surgical,& Family Hx - Medical History Cardio: History of: CAD, Hypertension, [place] Psychological: History of: Anxiety Disorders, Depression Neurology: History of: Neurological Problems (diabetic neuropathy) No history of: Seizures HEENT: History of: Eye Problem (WEARS GLASSES) Endocrine: History of: Diabetes Mellitus (IDDM), Diabetes Mellitus (NIDDM), Dyslipidemia No history of: Adrenal Disease, Thyroid Disorder, Endocrine Cancer, Endocrine Problems Rheumatology: History of;: Fibromyalgia Respiratory: History of: COPD Renal: No history of: Renal (Kidney) Cancer, Dialysis, Renal Failure, Renal Problems Genitourinary: History of: Bladder Problem (LEAKAGE), Recurring Urinary Tract Infections, Problems (STRESS INCONTINENCE) No history of: Kidney Stones, Genitourinary Cancer Gastrointestinal: History of: GERD Musculoskeletal: History of: Musculoskeletal Problems (OSTEOARTHRITIS) No history of: Amputation Reproductive: History of: Reproductive Problems (ABNORMAL VAGINAL BLEEDING HISTORY (HYSTERECTOMY)) Other: History of: Miscellaneous Medical Problems (OBESITY) - Surgical History Cardiac Surgeries: Sugical HX of: Cardiac Catheterization, Cardiac Surgery ( STENTS X 3) Thoracic Surgeries: Patient denies;: Kidney (Renal Surgery), Lithotripsy, Nephrectomy, Organ Transplant HEENT Surgeries: Surgical HX of: Tonsilectomy & Adenoidectomy Patient denies: Eye Surgery Abdominal Surgeries: Surgical HX of: Abdominal Surgery, EGD, Hernia Repair Patient denies: Appendectomy, Cholecystectomy, Colonoscopy, Gastric Bypass Surgery Reproductive Surgeries: Surgical HX of;: Breast Surgery (biopsy-benign), Gynecologic Surgery, Hysterectomy Patient denies;: Section, Cystoscopy, Dilation and Curettage, Genitourinary Surgery, Tubal Ligation Orthopedic Surgeries: Surgical HX of;: Orthopedic Surgery (SHOULDER REPKLACEMENT (LEFT)) Patient denies;: Implanted Devices, Spinal Surgery, Total Hip Replacement, Total Knee Replacement - Family History Family History: Reports;: Family Diabetes (BRO,DAUGHTER,COUSIN), Family Heart Disease (DAD,MOM,BRO (HEART DISEASE)), Family Hypertension (MOM), Family Psychiatric Problems (AUNT), Family Stroke (MOM, MAT GF,MAT AUNT) Denies;: Family Anesthesia Reaction Comment Only: Family Cancer (MOM (LUNG),DAD(THROAT WITH MET)) - Social History Smoking Status: Never smoker Frequency of Alcohol Use: None Type of Drug Use: None Exam Physical Examination: GENERAL: This is an obese, well-developed white female in no apparent distress. VITAL SIGNS: Temperature: 96.9 Pulse: 43 Respiratory: 16 Blood Pressure: 69 /40 O2SAT: 93 HEENT: Head is normocephalic and atraumatic. Pupils are equally round and reactive to light. Extraocular movement are intact. Oropharynx is benign with dry mucous membranes. NECK: Neck is soft and supple without tenderness. There are no masses. There is no lymphadenopathy. LUNGS: Lungs are clear to auscultation bilaterally. Chest rises symmetrically. There is no chest wall tenderness. CV: Heart is bradycardic rate and rhythm without murmurs, rubs, or gallops. ABDOMEN:Abdomen is soft, non-tender to palpation. There are no abnormal masses palpated. There is no organomegaly. Bowel sounds are present and active. SKIN: Skin is warm and dry. No rash. Bruise on abdomen in RLQ. EXTREMITIES: Patient has full range of motion without tenderness.There is no pedal edema. NEUROLOGIC: Awake, alert, and oriented x4. Cranial nerves II through XII are grossly intact. 3/5 motor function in all extremities. Little slurred speech PSYCHIATRIC: Normal affect. Normal mood. Vital Signs: Vital Signs Temperature 96.9 F L 10/10/16 11:01 Pulse Rate 51 L 10/10/16 13:00 Respiratory Rate 19 10/10/16 13:00 Blood Pressure 84/36 10/10/16 13:00 O2 Sat by Pulse Oximetry 96 10/10/16 13:00 Course - Consultations Consultation #1: Discussed with hospitalist. They will see the patient in the emergency department. Time: 12:44 Results - Labs CBC & BMP: 10/10/16 11:33 10/10/16 11:33 Lab Results: I have reviewed the patients labs Labs: Laboratory Tests 10/10/16 11:33 WBC 10.5 RBC 4.14 Hgb 12.5 Hct 39.9 MCHC 31.3 L Lymph # (Auto) 4.1 H Laboratory Tests 10/10/16 10/10/16 11:32 11:33 Sodium 141 Potassium 4.9 Chloride 104 Carbon Dioxide 29 BUN 25 H Creatinine 2.20 H Glucose 357 H Calcium 8.2 L Total Protein 6.0 L Albumin 3.1 L Albumin/Globulin Ratio 1.0 L Urine Color Yellow Urine Appearance Cloudy Urine Urobilinogen < 2.0 H Urine Leukocytes Small H Laboratory Tests 10/10/16 11:32 Urine pH 5.0 Ur Specific [place] 1.011 Urine RBC 4 Urine WBC 14 - Diagnostic Findings Procedure: Chest x-ray: report reviewed by me (No definite acute process. Stable cardiomegaly. Shallow breath), CT: report reviewed by me (Head: No acute intracranial abnormality is identified) Disposition Clinical Impression: History of stroke, Multiple falls, Morbid obesity, Essential hypertension, Diabetes mellitus, Gait apraxia, Pyuria Case discussed with: patient, patient's family Condition: Stable
[2016-10-10 11:50] LABS: PT Patient Result 10.5 SECS; Partial Thromboplastin Time 23.6 SECS (0-40)
--- NOTE | 2016-10-10 12:03 | CT Report ---
Referring physician: Ady Aleman Exam: CT brain without contrast Date: October 10, 2016 Comparison: CT brain without contrast September 29, 2016 Reason: Hemiparesis The patient is an Emergency Department patient on October 10, 2016. Technique: Axial images of the head were obtained without the use of contrast. Total DLP was 997.9 mGy*cm. Findings: No hydrocephalus or midline shift is present. There is no evidence of recent intracranial hemorrhage, abnormal mass effect or an acute infarction. Mild chronic microvascular ischemic change is suspected as before. No acute osseous process is seen. The mastoid air cells and paranasal sinuses appear clear. There is suggestion of previous sinus surgery. Impression: No acute intracranial abnormality is identified. The CT exam was performed using one or more of the following dose reduction techniques: Automated exposure control and adjustment of the mA and/or kV according to patient size. PROCEDURE INTERPRETED AT [facility] DEPARTMENT OF RADIOLOGY Final Report Signed by: Dr. Jenae Tirado
[2016-10-10 12:14] LABS: Albumin 3.1 G/DL (3.4-5.0); Bilirubin,Total 0.5 MG/DL (0.2-1.0); Calcium 8.2 MG/DL (8.5-10.1); Osmolality,Calculated 298.3 MOS/KG (273-304); Potassium 4.9 MMOL/L (3.5-5.1)
[2016-10-10 12:26] LABS: Apearance,Urine CLOUDY (Clear); Bacteria,Urine Occasional /HPF (Few); Bilirubin,Urine Negative (Negative); Blood, Urine Small mg/dL (Negative); Glucose,Urine (UA) 50 mg/dL (Negative); Ketones,Urine Negative (Negative); Nitrite,Urine Negative (Negative); Protein,Urine Negative; RBC,Urine 4 /HPF (0-4); Squamous Epithelial Cell,Urine Occasional /HPF (0-10); Urine Color Yellow (Yellow); Urine Specific Gravity 1.011 (1.001-1.035); Urine Urobilinogen < 2.0 EU/DL (0.2-1.0); WBC,Urine 14 /HPF (0-6)
[2016-10-10] MEDS ORDERED: cefTRIAXone 1,000 MG in SODIUM CHLORIDE 0.9% 100 ML IV STA (12:43)
--- NOTE | 2016-10-10 12:51 | XRay Report ---
History: Atrial fibrillation Date: 10/10/2016 Study: Chest x-ray single view Comparison exam: Chest x-ray September 29, 2016 There is stable cardiomegaly. The mediastinal contours are unchanged. The pulmonary vasculature is not grossly engorged. The lungs are generally clear when accounting for shallow inspiration. There is no gross pleural effusion. There is infr-rv-sayisrgn thoracic spondylosis. There has been previous right shoulder replacement. Impression: No definite acute process. Stable cardiomegaly. Shallow breath PROCEDURE INTERPRETED AT [facility] DEPARTMENT OF RADIOLOGY Final Report Signed by: Dr. Kandy Martinez
--- NOTE | 2016-10-10 12:56 | EKG Report ---
Stationary ECG Study [facility] Test Date: 10/10/2016 11:25:48 AM Pat Name: RAFITA BUCK Department: Room: Gender: F Industrial Specialist: KATHY Peck : 1950 Requested by: Ady Winston Order Number: [id number] Reading MD: ESPINOZA HOOPER Intervals [place] Rate: 41 P: 999 [place]: 0 QRS: -49 QRSD: 115 T: 121 QT: 512 QTc: 449 Interpretive Statements SUPRAVENTRICULAR BRADYCARDIA LEFT ANTERIOR FASCICULAR BLOCK INFERIOR MYOCARDIAL INFARCTION, OF INDETERMINATE AGE Electronically Signed On 10-10-16 14:27:57 CDT by ESPINOZA HOOPER [email or web address]
[2016-10-10] MEDS ORDERED: cefTRIAXone 1,000 MG VIAL ONE (14:10)
--- NOTE | 2016-10-10 14:27 | Hospitalist History & Physical ---
Assessment and Plan (1) Acute kidney failure, unspecified Status: Acute Assessment and plan: This is new. BUN/Creatinine on last visit, 30/06.10; today at 25/22.0. We will gently rehydrate and reassess in AM. Current Visit: Yes (2) Diabetes mellitus Status: Acute Assessment and plan: Will obtain HGA1C; consult software educator, and start accuchecks with ss coverage. Current Visit: Yes Qualifiers: Diabetes mellitus complication detail: with unspecified neuropathy (3) Altered mental status Status: Acute Assessment and plan: I feel that source of her altered mentation is secondary to polypharmacy. We will review and hold all agents that may potentially cause sedation. Current Visit: No (4) Bradycardia Status: Acute Assessment and plan: Will obtain digoxin and thyroid level. Current Visit: Yes History of Present Illness Chief complaint: altered mental status/shortness of breath/weakness History of present illness: This is a very unfortunate 65 year old female that presented to the ED at [facility] this afternoon with a chief compliant of shortness of breath and weakness. The patient has a rather extensive medical history of coronary artery disease, myocardial infarction, depression, anxiety , diabetic neuropathy, diabetes mellitus, fibromyalgia, chronic obstructive pulmonary disease, GERD, stress incontinence, osteoarthritis, morbid obesity. She has a surgical history of catheterization with stent placement, tonsillectomy, adenoidectomy, EGD, hernia repair, hysterectomy,and left shoulder repair. She was recently discharged from [facility] on 10/02 for what was thought to be a transient ischemic attack. Today, she presented to the ED with a chief compliant of shortness of breath and weakness. The patient was also noted to have altered mental status. The patient attempted to provide history; however she was unable to do so. Her family is at bedside, they report that the patient has been "off" and falling for the past several days. She sustained a fall out of the bathtub in which she reportedly struck her head. CT head and CXR were obtained, both of which were unremarkable. Labs were obtained which revealed renal dysfunction with a BUN/ Creatinine of 28/2.20 and glucose level of 353. In addition, she was found to be hypotensive with SBP in the 80-90 and bradycardic with pulse rate between 35- 50. After brief discussion with both Dr. Aleman and Dr. Afua, the patient will be admitted to the hospitalist service for continuation of care. We will consult cardiology and pulmonology to assist. Home Medications Medication Instructions Recorded Confirmed Type Albuterol Sulfate [Proair HFA] 2 puff INH Q6H PRN 03/11/15 09/06/16 History Aspirin [Ecotrin] 325 mg PO DAILY 03/11/15 09/06/16 History Atorvastatin Calcium [Lipitor] 80 mg PO DAILY 03/11/15 09/06/16 History Digoxin Tab [Lanoxin Tab] 0.125 mg PO DAILY 03/11/15 09/06/16 History Gabapentin Cap/Tab [Neurontin 600 mg PO TID 03/11/15 09/06/16 History Cap/Tab] Glyburide,Micronized [Glyburide 6 mg PO BID W/MEALS 03/11/15 09/06/16 History Micronized] HYDROcodone/ACETAMIN 10-325 [[place] 1 tablet PO Q6H 03/11/15 09/06/16 History 10-325] Isosorbide Mononitrate [Imdur] 60 mg PO DAILY 03/11/15 09/06/16 History Magnesium Oxide 400 mg PO DAILY 03/11/15 09/06/16 History Metoclopramide Tab [Reglan Tab] 10 mg PO DAILY 03/11/15 09/06/16 History Metoprolol Tartrate 12.5 mg PO BID 03/11/15 09/06/16 History Pantoprazole Tab [Protonix Tab] 40 mg PO BID 03/11/15 09/06/16 History PARoxetine HCl [Paxil] 80 mg PO DAILY 06/26/15 09/06/16 History traZODone [Desyrel] 150 mg PO BID 06/26/15 09/06/16 History Fenofibrate [Tricor] 145 mg PO DAILY 05/08/16 09/06/16 History Meclizine [Antivert] 25 mg PO TID PRN 05/08/16 09/06/16 History Montelukast Tab [Singulair Tab] 10 mg PO DAILY 05/08/16 09/06/16 History Clopidogrel [Plavix] 75 mg PO DAILY 06/20/16 09/06/16 History Lisinopril [Prinivil] 20 mg PO DAILY 06/20/16 09/06/16 History Methocarbamol Tab [Robaxin Tab] 500 mg PO TID PRN 06/20/16 09/06/16 History clonazePAM TAB [KlonoPIN] 1 mg PO TID 06/20/16 09/06/16 History ARIPiprazole [Abilify] 2 mg PO DAILY 09/06/16 09/06/16 History Diclofenac 1% Gel [Voltaren 1% Gel] 1 applic DAILY PRN 09/06/16 09/06/16 History Meloxicam 7.5 mg PO DAILY 09/06/16 09/06/16 History Promethazine Tab [Phenergan Tab] 25 mg PO Q8HR PRN 09/06/16 09/06/16 History Insulin Aspart Prot/Asp 70/30 50 unit SUBCUT AC SUPPER #7 unit 09/08/16 Rx [NovoLOG Mix 70/30] Insulin Aspart Prot/Asp 70/30 60 unit SUBCUT AC BREAKFAST #1 unit 09/08/16 Rx [NovoLOG Mix 70/30] Oxycodone HCl/Acetaminophen 1 each PO BEDTIME #20 09/08/16 Rx [Percocet 10-325 mg Tablet] Allergies Allergy/AdvReac Type Severity Reaction Status Date / Time fluticasone Allergy Intermediate MOUTH SORES Verified 10/10/16 11:09 [From Advair Diskus] morphine Allergy Intermediate RASH Verified 10/10/16 11:09 salmeterol Allergy Intermediate MOUTH SORES Verified 10/10/16 11:09 [From Advair Diskus] venom-honey bee Allergy Unknown/Unable Verified 10/10/16 11:09 [bee venom (honey bee)] to obtain Medical,Surgical,& Family Hx - Medical History Cardio: History of: CAD, Hypertension, [place] Psychological: History of: Anxiety Disorders, Depression Neurology: History of: Neurological Problems (diabetic neuropathy) No history of: Seizures HEENT: History of: Eye Problem (WEARS GLASSES) Endocrine: History of: Diabetes Mellitus (IDDM), Diabetes Mellitus (NIDDM), Dyslipidemia No history of: Adrenal Disease, Thyroid Disorder, Endocrine Cancer, Endocrine Problems Rheumatology: History of;: Fibromyalgia Respiratory: History of: COPD Renal: No history of: Renal (Kidney) Cancer, Dialysis, Renal Failure, Renal Problems Genitourinary: History of: Bladder Problem (LEAKAGE), Recurring Urinary Tract Infections, Problems (STRESS INCONTINENCE) No history of: Kidney Stones, Genitourinary Cancer Gastrointestinal: History of: GERD Musculoskeletal: History of: Musculoskeletal Problems (OSTEOARTHRITIS) No history of: Amputation Reproductive: History of: Reproductive Problems (ABNORMAL VAGINAL BLEEDING HISTORY (HYSTERECTOMY)) Other: History of: Miscellaneous Medical Problems (OBESITY) - Surgical History Cardiac Surgeries: Sugical HX of: Cardiac Catheterization, Cardiac Surgery ( STENTS X 3) Thoracic Surgeries: Patient denies;: Kidney (Renal Surgery), Lithotripsy, Nephrectomy, Organ Transplant HEENT Surgeries: Surgical HX of: Tonsilectomy & Adenoidectomy Patient denies: Eye Surgery Abdominal Surgeries: Surgical HX of: Abdominal Surgery, EGD, Hernia Repair Patient denies: Appendectomy, Cholecystectomy, Colonoscopy, Gastric Bypass Surgery Reproductive Surgeries: Surgical HX of;: Breast Surgery (biopsy-benign), Gynecologic Surgery, Hysterectomy Patient denies;: Section, Cystoscopy, Dilation and Curettage, Genitourinary Surgery, Tubal Ligation Orthopedic Surgeries: Surgical HX of;: Orthopedic Surgery (SHOULDER REPKLACEMENT (LEFT)) Patient denies;: Implanted Devices, Spinal Surgery, Total Hip Replacement, Total Knee Replacement - Family History Family History: Reports;: Family Diabetes (BRO,DAUGHTER,COUSIN), Family Heart Disease (DAD,MOM,BRO (HEART DISEASE)), Family Hypertension (MOM), Family Psychiatric Problems (AUNT), Family Stroke (MOM, MAT GF,MAT AUNT) Denies;: Family Anesthesia Reaction Comment Only: Family Cancer (MOM (LUNG),DAD(THROAT WITH MET)) - Social History Smoking Status: Never smoker Frequency of Alcohol Use: None Type of Drug Use: None 12 point system: reviewed and no additional remarkable complaints except as stated Exam - Constitutional Vitals: Period Temp Pulse Resp BP Sys/Ordoñez Pulse Ox Last 24 Hr 96.9 F-96.9 F 41-55 15-22 68-95/32-50 93-97 General appearance: no acute distress, morbidly obese - Head Head exam: Present: normal inspection, normocephalic, atraumatic - Eye Eye exam: Present: EOMI. Absent: conjunctival injection, nystagmus Pupils: Present: KATHIE, normal accommodation - ENT ENT exam: Present: normal exam - Neck Neck exam: Present: normal inspection. Absent: lymphadenopathy, meningismus, tenderness, thyromegaly - Respiratory Respiratory exam: Absent: rales, rhonchi, stridor, wheezes - Cardiovascular Cardiovascular exam: Present: bradycardia. Absent: carotid bruit, diastolic murmur, gallop, irregular rhythm, JVD, rubs, systolic murmur - GI/Abdominal GI/Abdominal exam: Present: normal bowel sounds, soft. Absent: ascites, distended, firm, guarding, tenderness - Extremities Exam Extremities exam: Present: normal inspection, edema (+2 edema noted to bilateral lower extremeties) - Back Exam Back exam: Present: other (multiple areas of discolorations noted to lower back) - Neurological Exam Neurological exam: Present: alert, altered - Psychiatric Psychiatric exam: Present: flat affect - Skin Skin exam: Present: dry, pallor Results - Labs CBC & BMP: 10/10/16 11:33 10/10/16 11:33 Lab Results: I have reviewed the past 24 hour labs Quality Measures - Stroke Onset of Symptoms Date: 10/10/16 Onset of Symptoms Time: 07:00 Symptom Onset Unknown: No
[2016-10-10] MEDS ORDERED: DEXTROSE 50% 25 GM/50 ML VIAL IV PRN (15:41)
[2016-10-10] MEDS ORDERED: GLUCAGON 1 MG VIAL IM PRN (15:41)
[2016-10-10] MEDS ORDERED: LACTULOSE 20 GM/30 ML UDCUP PO PRN (15:41)
[2016-10-10] MEDS ORDERED: ONDANSETRON 4 MG/2 ML VIAL IV PRN (15:41)
[2016-10-10] MEDS ORDERED: SODIUM CHLORIDE 0.9% 1,000 ML IV ONE (16:03)
--- NOTE | 2016-10-10 16:49 | Neurology Consult Note ---
History of Present Illness History of present illness: 65 year old female that presented to the ED at [facility] today with a chief compliant of shortness of breath and weakness. The patient has a rather extensive medical history of coronary artery disease, myocardial infarction, depression, anxiety, diabetic neuropathy, diabetes mellitus, fibromyalgia, chronic obstructive pulmonary disease, GERD, stress incontinence, osteoarthritis, morbid obesity. She has a surgical history of catheterization with stent placement, tonsillectomy, adenoidectomy, EGD, hernia repair, hysterectomy,and left shoulder repair. She was recently discharged from [facility] on 10/02 for what was thought to be a transient ischemic attack. Today, she presented to the ED with a chief compliant of shortness of breath and weakness. The patient was also noted to have some questionable altered mental status. She sustained a fall out of the bathtub in which she reportedly struck her head. CT head and CXR were obtained, both of which were unremarkable. Labs were obtained which revealed renal dysfunction with a BUN/Creatinine of 28/2.20 and glucose level of 353. In addition, she was found to be hypotensive with SBP in the 80-90 and bradycardic with pulse rate between 35-50. Home Medications Medication Instructions Recorded Confirmed Type Albuterol Sulfate [Proair HFA] 2 puff INH Q6H PRN 03/11/15 10/10/16 History Aspirin [Ecotrin] 325 mg PO DAILY 03/11/15 10/10/16 History Atorvastatin Calcium [Lipitor] 80 mg PO DAILY 03/11/15 10/10/16 History Digoxin Tab [Lanoxin Tab] 0.125 mg PO DAILY 03/11/15 10/10/16 History Gabapentin Cap/Tab [Neurontin 600 mg PO TID 03/11/15 10/10/16 History Cap/Tab] Glyburide,Micronized [Glyburide 6 mg PO BID W/MEALS 03/11/15 10/10/16 History Micronized] HYDROcodone/ACETAMIN 10-325 [[place] 1 tablet PO Q6H 03/11/15 10/10/16 History 10-325] Isosorbide Mononitrate [Imdur] 60 mg PO DAILY 03/11/15 10/10/16 History Magnesium Oxide 400 mg PO DAILY 03/11/15 10/10/16 History Metoclopramide Tab [Reglan Tab] 10 mg PO DAILY 03/11/15 10/10/16 History Metoprolol Tartrate 12.5 mg PO BID 03/11/15 10/10/16 History Pantoprazole Tab [Protonix Tab] 40 mg PO BID 03/11/15 10/10/16 History PARoxetine HCl [Paxil] 80 mg PO DAILY 06/26/15 10/10/16 History traZODone [Desyrel] 150 mg PO BID 06/26/15 10/10/16 History Fenofibrate [Tricor] 145 mg PO DAILY 05/08/16 10/10/16 History Meclizine [Antivert] 25 mg PO TID PRN 05/08/16 10/10/16 History Montelukast Tab [Singulair Tab] 10 mg PO DAILY 05/08/16 10/10/16 History Clopidogrel [Plavix] 75 mg PO DAILY 06/20/16 10/10/16 History Lisinopril [Prinivil] 20 mg PO DAILY 06/20/16 10/10/16 History Methocarbamol Tab [Robaxin Tab] 500 mg PO TID PRN 06/20/16 10/10/16 History clonazePAM TAB [KlonoPIN] 1 mg PO TID 06/20/16 10/10/16 History ARIPiprazole [Abilify] 2 mg PO DAILY 09/06/16 10/10/16 History Diclofenac 1% Gel [Voltaren 1% Gel] 1 applic DAILY PRN 09/06/16 10/10/16 History Meloxicam 7.5 mg PO DAILY 09/06/16 10/10/16 History Promethazine Tab [Phenergan Tab] 25 mg PO Q8HR PRN 09/06/16 10/10/16 History Insulin Aspart Prot/Asp 70/30 50 unit SUBCUT AC SUPPER #7 unit 09/08/16 Rx [NovoLOG Mix 70/30] Insulin Aspart Prot/Asp 70/30 60 unit SUBCUT AC BREAKFAST #1 unit 09/08/1610/10 Rx [NovoLOG Mix 70/30] Oxycodone HCl/Acetaminophen 1 each PO BEDTIME #20 09/08/16 10/10/16 Rx [Percocet 10-325 mg Tablet] Allergies Allergy/AdvReac Type Severity Reaction Status Date / Time fluticasone Allergy Intermediate MOUTH SORES Verified 10/10/16 11:09 [From Advair Diskus] morphine Allergy Intermediate RASH Verified 10/10/16 11:09 salmeterol Allergy Intermediate MOUTH SORES Verified 10/10/16 11:09 [From Advair Diskus] venom-honey bee Allergy Unknown/Unable Verified 10/10/16 11:09 [bee venom (honey bee)] to obtain 12 point system: reviewed and no additional remarkable complaints except as stated Medical,Surgical,& Family Hx - Medical History Cardio: History of: CAD, Hypertension, [place] Psychological: History of: Anxiety Disorders, Depression Neurology: History of: Neurological Problems (diabetic neuropathy) No history of: Seizures HEENT: History of: Eye Problem (WEARS GLASSES) Endocrine: History of: Diabetes Mellitus (IDDM), Diabetes Mellitus (NIDDM), Dyslipidemia No history of: Adrenal Disease, Thyroid Disorder, Endocrine Cancer, Endocrine Problems Rheumatology: History of;: Fibromyalgia Respiratory: History of: COPD Renal: No history of: Renal (Kidney) Cancer, Dialysis, Renal Failure, Renal Problems Genitourinary: History of: Bladder Problem (LEAKAGE), Recurring Urinary Tract Infections, Problems (STRESS INCONTINENCE) No history of: Kidney Stones, Genitourinary Cancer Gastrointestinal: History of: GERD Musculoskeletal: History of: Musculoskeletal Problems (OSTEOARTHRITIS) No history of: Amputation Reproductive: History of: Reproductive Problems (ABNORMAL VAGINAL BLEEDING HISTORY (HYSTERECTOMY)) Other: History of: Miscellaneous Medical Problems (OBESITY) - Surgical History Cardiac Surgeries: Sugical HX of: Cardiac Catheterization, Cardiac Surgery ( STENTS X 3) Thoracic Surgeries: Patient denies;: Kidney (Renal Surgery), Lithotripsy, Nephrectomy, Organ Transplant HEENT Surgeries: Surgical HX of: Tonsilectomy & Adenoidectomy Patient denies: Eye Surgery Abdominal Surgeries: Surgical HX of: Abdominal Surgery, EGD, Hernia Repair Patient denies: Appendectomy, Cholecystectomy, Colonoscopy, Gastric Bypass Surgery Reproductive Surgeries: Surgical HX of;: Breast Surgery (biopsy-benign), Gynecologic Surgery, Hysterectomy Patient denies;: Section, Cystoscopy, Dilation and Curettage, Genitourinary Surgery, Tubal Ligation Orthopedic Surgeries: Surgical HX of;: Orthopedic Surgery (SHOULDER REPKLACEMENT (LEFT)) Patient denies;: Implanted Devices, Spinal Surgery, Total Hip Replacement, Total Knee Replacement - Family History Family History: Reports;: Family Diabetes (BRO,DAUGHTER,COUSIN), Family Heart Disease (DAD,MOM,BRO (HEART DISEASE)), Family Hypertension (MOM), Family Psychiatric Problems (AUNT), Family Stroke (MOM, MAT GF,MAT AUNT) Denies;: Family Anesthesia Reaction Comment Only: Family Cancer (MOM (LUNG),DAD(THROAT WITH MET)) - Social History Smoking Status: Never smoker Frequency of Alcohol Use: None Type of Drug Use: None Exam - Constitutional Vitals: Period Temp Pulse Resp BP Sys/Ordoñez Pulse Ox Last 24 Hr 97.9 F 43-54 14-18 83-90/38-43 87-97 Exam: GENERAL: Patient is in no acute distress. NECK: Neck is supple. There is no JVD. No carotid bruits present. No thyroid masses. CVS: First and second heart sounds are normal. There is no S3 present. Regular rate and rhythm. RESPIRATORY: Lungs are clear to auscultation without any rales or rhonchi. ABDOMEN: Soft and non-tender. Bowel sounds are present. There is no hepatosplenomegaly. EXT: There is no palpable edema. Peripheral pulses are present. Skin: No rashes Central Nervous system: General: Alert, awake and Oriented x 3 Speech: Fluent Comprehension: Intact and normal Facial expressions: Normal Cranial Nerves: CN1/Olfactory: Normal CN II/ Optic: Normal, Visual Padilla unreliable CN III, and : KATHIE & EOMI CN V: Normal & intact CN VII: face is symmetric CNVIII: Normal CN XI/X/XI/XII: Intact and Normal Motor: Bulk and Tone is normal. Strength in the right 5/5 Strength in the left 5/5 Sensory: Decreased for all the modalities of PP, LT and temp sense Reflexes: 1+ and symmetrical Cerebellar function: Normal finger to nose and heel to chávez testing. Toes: Equivocal Gait: Not tested at this time Impression: History and exam suggestive of possible orthostatic hypotension and fall. Neuro exam is nonfocal. No clear evidence of stroke or TIAs this time. Recommendations: EEG Watchful observation. Thank you for the consultation Results - Labs CBC & BMP: 10/10/16 11:33 10/10/16 11:33
--- NOTE | 2016-10-10 17:07 | Cardiology Consult Note ---
John Barcenas Vanessa RN, am scribing for, and in the presence of, Geovanna Mtz NP 17:06. Assessment and Plan - Time spent with patient Time spent with patient: Greater than 30 minutes (Due to assessment, planning, documentation, medication review) (1) Left-sided weakness Status: Acute Assessment and plan: SEE PLAN OF CARE LISTED BELOW. Current Visit: No (2) Bradycardia Status: Acute Assessment and plan: SEE PLAN OF CARE LISTED BELOW. Current Visit: Yes (3) Diabetes mellitus Status: Chronic Assessment and plan: SEE PLAN OF CARE LISTED BELOW. Current Visit: Yes Qualifiers: Diabetes mellitus complication detail: with unspecified neuropathy (4) Essential hypertension Status: Chronic Assessment and plan: SEE PLAN OF CARE LISTED BELOW. Current Visit: Yes (5) History of stroke Status: Chronic Assessment and plan: SEE PLAN OF CARE LISTED BELOW. Current Visit: Yes (6) Morbid obesity Status: Chronic Assessment and plan: Dietary and nutrition counseling. Current Visit: Yes Qualifiers: Obesity type: due to excess calories Qualified Code(s): E66.01 - Morbid ( severe) obesity due to excess calories (7) Multiple falls Status: Acute Assessment and plan: SEE PLAN OF CARE LISTED BELOW. Current Visit: Yes (8) Atrial fibrillation Status: Acute Assessment and plan: SEE PLAN OF CARE LISTED BELOW. Current Visit: No Qualifiers: Atrial fibrillation type: paroxysmal Qualified Code(s): I48.0 - Paroxysmal atrial fibrillation (9) Dyslipidemia Status: Chronic Assessment and plan: SEE PLAN OF CARE LISTED BELOW. Current Visit: No (10) Fibromyalgia Status: Chronic Assessment and plan: Defer to hospital medicine. Current Visit: No History of Present Illness - Data of Consult Patient: known to practice within the last 3 years Consult date: 10/10/16 Requesting Physician: Manasa Caal - Consult Narrative Reason for consult: shortness of breath, generalized weakness, hypotension, bradycardia History of present illness: PRIMARY TRANSFER ENGINEER: DR. ESPINOZA HOOPER. Ms. Rios is a 65 year old white female followed by Dr. Hooper [facility]. Risk factors include: Known CAD, hypertension, hyperlipidemia, diabetes, morbid obesity, sedentary lifestyle. She also has a history of paroxysmal atrial fibrillation, COPD, diabetic neuropathy, fibromyalgia, GERD, renal insufficiency , and anxiety with depression disorder. Most recent hospitalization was in September 2016 when she was admitted for left side weakness, slurred speech. Diagnostic workup was unrevealing for ischemic neurologic event, and the patient was recommended for outpatient physical rehab. Patient was diagnosed with a TIA at that time. During that admission, she was evaluated by cardiology including Dr. Newton Philip and Dr. Luis Madison for management of paroxysmal atrial fibrillation. It is noted, that she had not recently had any episodes of atrial fibrillation and was not requiring any antiarrhythmics. Ms. Rios is a chronically ill lady, and has been doing fairly well. She presented to the emergency room today with complaints of left-sided weakness and shortness of breath, and "dropping things" 6 days. She also reports falling out of her bathtub recently and hitting her head a few days ago. CT of the head unrevealing for acute process. Noted in the emergency room to be hypotensive with a blood pressure of 69/40, and she was bradycardic with pulse rate in the 40s. EKG obtained and reveal signs bradycardia with no AV block or other ectopy/arrhythmia. Patient was admitted to the telemetry floor per hospital medicine. Cardiology has been consulted for further evaluation and treatment of shortness of breath, weakness, hypotension, and bradycardia. Most recent echocardiogram was 09/29/16 showed moderate LVH, LV ejection fraction 60%, and grade 1 diastolic dysfunction. Also noted is mild pulmonary hypertension with a PA pressure of 43 mmHg. Most recent cardiac catheterization was April 2016 for typical chest pain with known CAD and previous PCI. Cardiac cath performed by Dr. Denney with the following findings: 1. EF not assessed for contrast conservation 2. Hemodynamics LV: 140/0 EDP:3 Ao:137/68 3. Left main: Long and angiographically normal 4: Left anterior descending artery: This is a large vessel that reaches the apex of the ventricular myocardium and has a very brief a section of the inferior apical segment. There is a large first diagonal has a previously deployed stent is widely patent. There is a smaller diagonal just before the first diagonal that has approximate 50% ostial stenosis this is a very small vessel. The distal or apical segment of the left anterior descending artery is approximately a 1-1.5 mm vessel has approximately 50% very focal stenosis is a very small vessel is clearly too small for stenting 5: Left circumflex artery: This is a nondominant vessel. There is a moderate stenosis just after the takeoff of a very large first obtuse marginal AV groove portion left circumflex is approximately 50-60%. This appears angiographically be better than at last left heart catheterization 2003. 6: Right coronary artery: The previously deployed stents in the proximal portion of this dominant vessel or widely patent all other areas appear healthy. Apparently there is previously deployed stent in the PDA is widely patent Plan: 1. Therapeutic lifestyle changes. 2. Therapeutic lifestyle changes along with risk factor modification diabetes control control lipids and exercise program for weight loss Patient seen and examined on telemetry. She is awake and alert, she does not appear to be in any acute distress at this time. Her current blood pressure is 81/50, and she is receiving a 1 L IV fluid bolus. Pulse rate is 40s-50s, and telemetry review shows her to be in a sinus bradycardia, occasional brief pulse , but with no AV block or PAF seen. Denies acute dyspnea at this time. Admits to chest pain 2-3 times, and this pain occurs at rest and is a fleeting type of pain. No recent or current orthopnea, PND, palpitations, LE edema. Review of her labs showed a normal white blood cell count, H&H is stable, potassium of 4.9 , and magnesium 3.1. Blood glucose is not controlled and is greater than 300 today. Normal digoxin level at 1.8. Urinalysis revealed a small leukocytosis with occasional bacteria. Urine culture is pending. ASSESSMENT/PLAN: 1. HYPOTENSION - Hold antihypertensives at this time. Currently, she is receiving a 1 L IV fluid bolus of normal saline. 2. BRADYCARDIA - Hold beta-rey, JAY inhibitor. 3. PAROXYSMAL ATRIAL FIBRILLATION - Currently she is in a sinus rhythm. She does not require an antiarrhythmic for control of A. fib. Monitor EKG. Monitor electrolytes and optimize as needed. 4. DIABETES - Uncontrolled. Defer primary management of diabetes to hospital medicine. 5. RENAL INSUFFICIENCY- History of chronic renal insufficiency. Her creatinine today is elevated at 2.2, and we will hold AJY inhibitor at this time for fear of worsening renal function. This can be reintroduced upon improving of renal function. 6. ALTERED MENTAL STATUS/LEFT SIDE WEAKNESS -Diagnostic workup thus far benign. At this time, she is awake and appropriate. Many of her home medications listed could contribute to altered mental status, and they are currently being held per hospital medicine. 7. DYSLIPIDEMIA -continue statin therapy. 8. MALLAM LANCE AIRWAY CLASS IV - Many of her current symptoms, including complaint of chronic fatigue, could be contributed to possible sleep disorder. We will order for sleep medicine evaluation during this admission. 9. CAD -Continue dual antiplatelet therapy with Plavix and aspirin. CC: Manasa Caal MD - Home Medications and Allergies Home Medications: Home Medications Medication Instructions Recorded Confirmed Type Albuterol Sulfate [Proair HFA] 2 puff INH Q6H PRN 03/11/15 10/10/16 History Aspirin [Ecotrin] 325 mg PO DAILY 03/11/15 10/10/16 History Atorvastatin Calcium [Lipitor] 80 mg PO DAILY 03/11/15 10/10/16 History Digoxin Tab [Lanoxin Tab] 0.125 mg PO DAILY 03/11/15 10/10/16 History Gabapentin Cap/Tab [Neurontin 600 mg PO TID 03/11/15 10/10/16 History Cap/Tab] Glyburide,Micronized [Glyburide 6 mg PO BID W/MEALS 03/11/15 10/10/16 History Micronized] HYDROcodone/ACETAMIN 10-325 [[place] 1 tablet PO Q6H 03/11/15 10/10/16 History 10-325] Isosorbide Mononitrate [Imdur] 60 mg PO DAILY 03/11/15 10/10/16 History Magnesium Oxide 400 mg PO DAILY 03/11/15 10/10/16 History Metoclopramide Tab [Reglan Tab] 10 mg PO DAILY 03/11/15 10/10/16 History Metoprolol Tartrate 12.5 mg PO BID 03/11/15 10/10/16 History Pantoprazole Tab [Protonix Tab] 40 mg PO BID 03/11/15 10/10/16 History PARoxetine HCl [Paxil] 80 mg PO DAILY 06/26/15 10/10/16 History traZODone [Desyrel] 150 mg PO BID 06/26/15 10/10/16 History Fenofibrate [Tricor] 145 mg PO DAILY 05/08/16 10/10/16 History Meclizine [Antivert] 25 mg PO TID PRN 05/08/16 10/10/16 History Montelukast Tab [Singulair Tab] 10 mg PO DAILY 05/08/16 10/10/16 History Clopidogrel [Plavix] 75 mg PO DAILY 06/20/16 10/10/16 History Lisinopril [Prinivil] 20 mg PO DAILY 06/20/16 10/10/16 History Methocarbamol Tab [Robaxin Tab] 500 mg PO TID PRN 06/20/16 10/10/16 History clonazePAM TAB [KlonoPIN] 1 mg PO TID 06/20/16 10/10/16 History ARIPiprazole [Abilify] 2 mg PO DAILY 09/06/16 10/10/16 History Diclofenac 1% Gel [Voltaren 1% Gel] 1 applic DAILY PRN 09/06/16 10/10/16 History Meloxicam 7.5 mg PO DAILY 09/06/16 10/10/16 History Promethazine Tab [Phenergan Tab] 25 mg PO Q8HR PRN 09/06/16 10/10/16 History Insulin Aspart Prot/Asp 70/30 50 unit SUBCUT AC SUPPER #7 unit 09/08/16 Rx [NovoLOG Mix 70/30] Insulin Aspart Prot/Asp 70/30 60 unit SUBCUT AC BREAKFAST #1 unit 09/08/1610/10 Rx [NovoLOG Mix 70/30] Oxycodone HCl/Acetaminophen 1 each PO BEDTIME #20 09/08/16 10/10/16 Rx [Percocet 10-325 mg Tablet] Allergies/Adverse Reactions: Allergies Allergy/AdvReac Type Severity Reaction Status Date / Time fluticasone Allergy Intermediate MOUTH SORES Verified 10/10/16 11:09 [From Advair Diskus] morphine Allergy Intermediate RASH Verified 10/10/16 11:09 salmeterol Allergy Intermediate MOUTH SORES Verified 10/10/16 11:09 [From Advair Diskus] venom-honey bee Allergy Unknown/Unable Verified 10/10/16 11:09 [bee venom (honey bee)] to obtain - Constitutional Constitutional: Present: fatigue, frequent falls, lethargy. Absent: night sweats, stops breathing during sleep - EENT Eyes: Absent: blurry vision Nose, mouth and throat: Present: neck pain. Absent: dysphagia, sore throat, tongue swelling - Cardiovascular Cardiovascular: Present: dyspnea on exertion. Absent: chest pain at rest, chest pain with activity, diaphoresis, dyspnea, edema, radiating jaw, neck or arm pain, lightheadedness, orthopnea, palpitations, PND - Respiratory Respiratory: Present: dyspnea on exertion. Absent: dyspnea, hemoptysis, wheezing - Gastrointestinal Gastrointestinal: Present: other (Obese). Absent: abdominal pain, melena, nausea - Genitourinary Genitourinary: Absent: dysuria, flank pain, hematuria, menorrhagia, urinary hesitancy - Musculoskeletal Musculoskeletal: Present: myalgias - Neurological Neurological: Absent: abnormal gait, abnormal speech, confusion, dizziness, syncope, tremor(s) - Psychiatric Psychiatric: Present: anxiety, depression - Endocrine Endocrine: Absent: cold intolerance, heat intolerance - Hematologic/Lymphatic Hematologic/Lymphatic: Absent: easy bleeding, easy bruising Medical,Surgical,& Family Hx - Medical History Cardio: History of: CAD, Hypertension, [place] No history of: PVD Psychological: History of: Anxiety Disorders, Depression Neurology: History of: Neurological Problems (diabetic neuropathy) No history of: Seizures HEENT: History of: Eye Problem (WEARS GLASSES) Endocrine: History of: Diabetes Mellitus (IDDM), Diabetes Mellitus (NIDDM), Dyslipidemia No history of: Adrenal Disease, Thyroid Disorder, Endocrine Cancer, Endocrine Problems Rheumatology: History of;: Fibromyalgia Respiratory: History of: COPD Renal: No history of: Renal (Kidney) Cancer, Dialysis, Renal Failure, Renal Problems Genitourinary: History of: Bladder Problem (LEAKAGE), Recurring Urinary Tract Infections, Problems (STRESS INCONTINENCE) No history of: Kidney Stones, Genitourinary Cancer Gastrointestinal: History of: GERD Musculoskeletal: History of: Musculoskeletal Problems (OSTEOARTHRITIS) No history of: Amputation Reproductive: History of: Reproductive Problems (ABNORMAL VAGINAL BLEEDING HISTORY (HYSTERECTOMY)) Other: History of: Miscellaneous Medical Problems (OBESITY) - Surgical History Cardiac Surgeries: Sugical HX of: Cardiac Catheterization, Cardiac Surgery ( STENTS X 3) Thoracic Surgeries: Patient denies;: Kidney (Renal Surgery), Lithotripsy, Nephrectomy, Organ Transplant HEENT Surgeries: Surgical HX of: Tonsilectomy & Adenoidectomy Patient denies: Eye Surgery Abdominal Surgeries: Surgical HX of: Abdominal Surgery, EGD, Hernia Repair Patient denies: Appendectomy, Cholecystectomy, Colonoscopy, Gastric Bypass Surgery Reproductive Surgeries: Surgical HX of;: Breast Surgery (biopsy-benign), Gynecologic Surgery, Hysterectomy Patient denies;: Section, Cystoscopy, Dilation and Curettage, Genitourinary Surgery, Tubal Ligation Orthopedic Surgeries: Surgical HX of;: Orthopedic Surgery (SHOULDER REPKLACEMENT (LEFT)) Patient denies;: Implanted Devices, Spinal Surgery, Total Hip Replacement, Total Knee Replacement - Family History Family History: Reports;: Family Diabetes (BRO,DAUGHTER,COUSIN), Family Heart Disease (DAD,MOM,BRO (HEART DISEASE)), Family Hypertension (MOM), Family Psychiatric Problems (AUNT), Family Stroke (MOM, MAT GF,MAT AUNT) Denies;: Family Anesthesia Reaction Comment Only: Family Cancer (MOM (LUNG),DAD(THROAT WITH MET)) - Social History Smoking Status: Never smoker Frequency of Alcohol Use: None Type of Drug Use: None Physical Examination Vital Signs Temp Pulse Resp BP Pulse Ox 96.9 F L 43 L 16 69/40 93 L 10/10/16 11:01 10/10/16 11:01 10/10/16 11:01 10/10/16 11:01 10/10/16 11:01 General: [Appears well with no apparent distress.] [Pleasant and cooperative. ] [Appears comfortable.] HEENT: [PERRL, normocephalic, atraumatic. Poor dentition noted. Mucous membranes moist. No jaundice noted. Conjunctiva moist and clear, sclerae anicteric]. Mallampati Airway Class IV. Neck: No JVD/HJR, no thyromegaly or lymphadenopathy noted. No carotid bruit appreciated, neck circumference > 44cm. Cardiac: [Regular rate and rhythm.] [No obvious murmur rub or gallop.] Lungs: [Clear to auscultation without accessory muscle use to assist the respiratory pattern.] Using oxygen intermittently. Abdomen: Soft, bowel sounds normoactive. Nontender and nondistended. No abdominal bruit or thrill noted. No masses noted. Musculoskeletal: No fluid collection. Decreased range of motion is noted. Extremities: No clubbing, cyanosis noted. [ No edema noted.] Upper extremity pulses 2+. Lower extremity pulses 2+. Capillary refill less than 3 seconds. Skin: No unusual lesions or rashes. No skin breakdown appreciated. Neuro: Awake, alert and oriented 3. Moves all extremities well without hemiparesis or paralysis. No essential tremor is appreciated. Result/EKG - Labs CBC & BMP: 10/10/16 11:33 10/10/16 11:33 Lab Results: I have reviewed the past 24 hour labs Labs: Laboratory Results - last 24 hr 10/10/16 15:23 Digoxin 1.80 - Diagnostic Findings Procedure: Chest x-ray: image reviewed by me, report reviewed by me - EKG EKG results: interpreted by me EKG shows: bradycardia Quality Measures - Stroke Onset of Symptoms Date: 10/10/16 Onset of Symptoms Time: 07:00 Symptom Onset Unknown: No I, Geovanna Mtz NP, personally performed the services described in this documentation, ascribed by Delisa Lopez, CIPRIANO in my presence, and it is both accurate and complete [id number] .
[2016-10-10] MEDS: cefTRIAXone 1,000 MG in SODIUM CHLORIDE 0.9% 100 ML IV SCH (17:17)
[2016-10-10] MEDS: SODIUM CHLORIDE 0.9% 1,000 ML IV SCH (17:17)
[2016-10-10 18:27] LABS: Apearance,Urine CLOUDY (Clear); Bilirubin,Urine Negative (Negative); Blood, Urine Small mg/dL (Negative); Glucose,Urine (UA) Negative (Negative); Ketones,Urine Negative (Negative); Nitrite,Urine Negative (Negative); Protein,Urine Negative; RBC,Urine 21 /HPF (0-4); Squamous Epithelial Cell,Urine Occasional /HPF (0-10); Urine Color Yellow (Yellow); Urine Specific Gravity 1.017 (1.001-1.035); Urine Urobilinogen < 2.0 EU/DL (0.2-1.0); WBC,Urine 34 /HPF (0-6)
[2016-10-11] MEDS: GABAPENTIN 300 MG CAPSULE PO SCH ×3 (02:42→21:27)
[2016-10-11] MEDS: SODIUM CHLORIDE 0.9% 1,000 ML IV SCH ×3 (05:23→21:30)
[2016-10-11 05:53] LABS: Basophils # 0.1 10*3/uL (0.0-0.2); Basophils % 0.8 % (0.0-0.8); Eosinophils # 0.3 10*3/uL (0.0-0.87); Eosinophils % 4.4 % (0.00-10.9); Hematocrit 40.6 VOL% (35.7-47.0); Hemoglobin 12.3 GM/DL (12.0-16.0); Immature Granulocytes % 0.4 %; Immature Granulocytes Absolute 0.03 #; Lymphocytes # 2.4 10*3/uL (1.4-4.0); Lymphocytes % 32.9 % (21.3-54.2); Mean Corpuscular HGB Conc 30.3 GM/DL (32-36); Mean Corpuscular Hemoglobin 30 PG (27-34); Mean Corpuscular Volume 97.8 FL (87-102); Mean Platelet Volume 11.1 FL (9.6-12.0); Monocytes # 0.4 10*3/uL (0.11-0.8); Neutrophils # 4.2 10*3/uL (1.4-7.4); Neutrophils % 56.5 % (38.7-73.9); Platelet Count 234 T/CUMM (130-400); Red Blood Count 4.15 MC/CUMM (3.8-5.5); Red Cell Distribution Width 14.1 % (9.3-17.3); White Blood Count 7.4 T/CUMM (4-12)
[2016-10-11 06:23] LABS: Osmolality,Calculated 298.7 MOS/KG (273-304); Potassium 5.7 MMOL/L (3.5-5.1)
--- NOTE | 2016-10-11 08:59 | Neurology Progress Note ---
Neurology - PN : Subjective Interval history: Ms. Rios denies any other syncopal episode. Seems to be doing okay. Complaining of hurting all over since she has a history of fibromyalgia Exam (Progress Note) - Constitutional Vitals: Period Temp Pulse Resp BP Sys/Ordoñez Pulse Ox Last 24 Hr 96.8 F-98.3 F 43-72 14-18 81-144/35-77 83-97 Exam: GENERAL: Patient is in no acute distress. NECK: Neck is supple. There is no JVD. No carotid bruits present. No thyroid masses. CVS: First and second heart sounds are normal. There is no S3 present. Regular rate and rhythm. RESPIRATORY: Lungs are clear to auscultation without any rales or rhonchi. ABDOMEN: Soft and non-tender. Bowel sounds are present. There is no hepatosplenomegaly. EXT: There is no palpable edema. Peripheral pulses are present. Skin: No rashes Central Nervous system: General: Alert, awake and Oriented x 3 Speech: Fluent Comprehension: Intact and normal Facial expressions: Normal Cranial Nerves: CN1/Olfactory: Normal CN II/ Optic: Normal, Visual Padilla unreliable CN III, and : KATHIE & EOMI CN V: Normal & intact CN VII: face is symmetric CNVIII: Normal CN XI/X/XI/XII: Intact and Normal Motor: Bulk and Tone is normal. Strength in the right 5/5 Strength in the left 5/5 Sensory: Decreased for all the modalities of PP, LT and temp sense Reflexes: 1+ and symmetrical Cerebellar function: Normal finger to nose and heel to chávez testing. Toes: Equivocal Gait: Not tested at this time Impression: History and exam suggestive of possible orthostatic hypotension and fall. Neuro exam is nonfocal. No clear evidence of stroke or TIAs this time. Recommendations: EEG is pending. Will review it once available. Results - Labs CBC & BMP: 10/11/16 05:36 10/11/16 05:36 Quality Measures - Stroke Onset of Symptoms Date: 10/10/16 Onset of Symptoms Time: 07:00 Symptom Onset Unknown: No
--- NOTE | 2016-10-11 10:01 | Magnetic Resonance Report ---
Referring physician: Manasa Newhall Exam: MRI brain with and without contrast Date: October 11, 2016 Comparison: MRI brain September 30, 2016 Reason: Left-sided weakness, slurred speech The patient is an inpatient who was admitted on October 10, 2016. Technique: MRI of the brain was performed with and without the use of 20 cc of IV Dotarem contrast. Obtained precontrast images include sagittal T1, axial diffusion-weighted, axial FLAIR, axial T2, axial gradient and axial T1 sequences. Postcontrast sequences include axial and coronal T1 sequences. A 1.5 Melvi magnet was used. Findings: There are small scattered areas of T2/FLAIR hyperintensity within the cerebral white matter bilaterally, similar to before. This is nonspecific but likely represents mild chronic microvascular ischemic change. Less common considerations include a demyelinating process, vasculitis, viral process or Lyme disease. No hydrocephalus or midline shift is present. There is no evidence of recent intracranial hemorrhage, abnormal mass effect or an acute infarction. No suspicious intracranial enhancement is seen, and major vascular flow voids are visualized. The patient may be status post cataract surgery. The orbits and brainstem are otherwise unremarkable. The sella is distended with CSF, consistent with an empty sella. This is similar to before. There is evidence of prior sinus surgery. The paranasal sinuses and mastoid air cells appear clear. Impression: 1. No acute intracranial process is identified. 2. Probable mild chronic microvascular ischemic change, similar to before. PROCEDURE INTERPRETED AT [facility] DEPARTMENT OF RADIOLOGY Final Report Signed by: Dr. Jenae Tirado
[2016-10-11] MEDS ORDERED: GLUCAGON 1 MG VIAL IM PRN (10:55)
[2016-10-11] MEDS ORDERED: DEXTROSE 50% 25 GM/50 ML VIAL IV PRN (10:55)
[2016-10-11] MEDS: INSULIN ASPART PROTAMINE/ASPART 70/30 100 UNIT/ML SUBCUT SCH ×2 (11:07→16:22)
--- NOTE | 2016-10-11 12:05 | Hospitalist Progress Note ---
Assessment and Plan (1) Bradycardia Status: Acute Assessment and plan: 1)bradycardia and hypotension- resolved with hydration and holding almost all of her meds, including dig and beta rey. paroxysmal afib, not anticoagulated I think because of the falls. Defer consideration of anticoagulation to cardiology. This morning she is in NSR with good rate. stop dig for good, beta rey at least for now. Holding other antiHTN meds also. 2)encephalopathy- due to hypotension and likely accumulation of renally cleared meds (neurontin). 3)SHIMA- improved this morning with hydration. baseline creatinine was 1.1 a month ago. 4)morbid obesity 5)falls- refer to swing bed 6)DM- restart her home 70/30 at lower doses since she hasn't eaten yet, and start SSI. will likely need her usual doses of 60 U am and 25 pm tomorrow. Current Visit: Yes (2) Atrial fibrillation Status: Acute Current Visit: No Qualifiers: Atrial fibrillation type: paroxysmal Qualified Code(s): I48.0 - Paroxysmal atrial fibrillation (3) Fibromyalgia Status: Chronic Current Visit: No (4) Multiple falls Status: Acute Current Visit: Yes (5) Morbid obesity Status: Chronic Current Visit: Yes Qualifiers: Obesity type: due to excess calories Qualified Code(s): E66.01 - Morbid ( severe) obesity due to excess calories (6) Essential hypertension Status: Chronic Current Visit: Yes (7) Diabetes mellitus Status: Chronic Current Visit: Yes Qualifiers: Diabetes mellitus complication detail: with unspecified neuropathy (8) Acute kidney failure, unspecified Status: Acute Current Visit: Yes Hospitalist: Subjective Interval history: Mrs Rios is much better this morning. Her mentation is back to baseline and her a fib is now at a rate of 70 and her BP is innormal range. She and I spent 15 minutes reviewing her very long medicine list and she was willing to consider stopping or decreasing some of the meds she takes especilly the ones that are duplicates. She says she started Abilify recently ane is willing to stop it. In addition she will stop meclizine, reglan (rarely takes) and continue the phenergan. She will continue [place] at tid with Percocet at bedtime. We have decreased her neurontin. She will decrease the trazadone to bedtime and continue the paxil at current dose. She will for now also stop klonipin, robaxin. She says she has never taken mobic or voltaren gel so we will stop those too. Additionally I will not restart the betablocker or dig at this time. Those were added recently and likely caused her bradycardia and hypotension. She is interested in a swing bed because she has been falling at home. Exam - Constitutional Vitals: Period Temp Pulse Resp BP Sys/Ordoñez Pulse Ox Last 24 Hr 96.8 F-98.3 F 43-72 14-18 81-144/35-77 83-97 General appearance: no acute distress, morbidly obese - Head Head exam: Present: normocephalic, atraumatic - Eye Eye exam: Present: EOMI. Absent: scleral icterus - Respiratory Respiratory exam: Present: clear to auscultation bilaterally - Cardiovascular Cardiovascular exam: Present: irregular rhythm - GI/Abdominal GI/Abdominal exam: Present: normal bowel sounds, soft. Absent: tenderness - Extremities Exam Extremities exam: Absent: edema - Neurological Exam Neurological exam: Present: alert, oriented X3, CN II-XII intact. Absent: motor sensory deficit - Skin Skin exam: Present: warm, dry Results - Labs CBC & BMP: 10/11/16 05:36 10/11/16 05:36 Lab Results: I have reviewed the past 24 hour labs Quality Measures - Stroke Onset of Symptoms Date: 10/10/16 Onset of Symptoms Time: 07:00 Symptom Onset Unknown: No
[2016-10-11] MEDS: INSULIN REGULAR 100 UNIT/ML SUBCUT SCH ×3 (12:16→21:25)
--- NOTE | 2016-10-11 13:00 | EKG Report ---
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
[2016-10-11] MEDS ORDERED: GABAPENTIN 300 MG CAPSULE PO SCH (15:00)
[2016-10-11] MEDS: cefTRIAXone 1,000 MG in SODIUM CHLORIDE 0.9% 100 ML IV SCH (16:21)
[2016-10-11] MEDS: oxyCODONE/ACETAMINOPHEN 5-325 MG TABLET PO SCH (21:26)
--- NOTE | 2016-10-12 07:32 | EKG Report ---
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
[2016-10-12] MEDS: GABAPENTIN 300 MG CAPSULE PO SCH ×2 (08:59→21:01)
[2016-10-12] MEDS: PARoxetine 20 MG TABLET PO SCH (09:00)
[2016-10-12] MEDS: INSULIN ASPART PROTAMINE/ASPART 70/30 100 UNIT/ML SUBCUT SCH ×2 (09:00→17:05)
[2016-10-12] MEDS: INSULIN REGULAR 100 UNIT/ML SUBCUT SCH ×4 (09:01→21:02)
[2016-10-12] MEDS: SODIUM CHLORIDE 0.9% 1,000 ML IV SCH (09:01)
--- NOTE | 2016-10-12 10:26 | Cardiology Progress Note ---
Loly Barcenas April RN, am scribing for, and in the presence of, Ana Faust, 10 :25. Assessment and Plan (1) Bradycardia Status: Acute Assessment and plan: This has resolved Current Visit: Yes (2) Multiple falls Status: Acute Current Visit: Yes (3) Diabetes mellitus Status: Chronic Current Visit: Yes Qualifiers: Diabetes mellitus type: type 2 Diabetes mellitus complication detail: with unspecified neuropathy (4) Essential hypertension Status: Chronic Assessment and plan: As per HPI Current Visit: Yes (5) History of stroke Status: Chronic Current Visit: Yes (6) Morbid obesity Status: Chronic Current Visit: Yes Qualifiers: Obesity type: due to excess calories Qualified Code(s): E66.01 - Morbid ( severe) obesity due to excess calories (7) Atrial fibrillation Status: Chronic Current Visit: No Qualifiers: Atrial fibrillation type: paroxysmal Qualified Code(s): I48.0 - Paroxysmal atrial fibrillation (8) Dyslipidemia Status: Chronic Current Visit: Yes (9) Fibromyalgia Status: Chronic Current Visit: Yes Cardiology - PN: 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 Rios is seen resting in bed in no acute distress. She reports she feels a little stronger today, denies chest pain, shortness of breath, palpitations, or dizziness. She has had no further episodes of syncope syncope since admission. monitoring and evaluation advisor currently shows sinus rhythm with heart rates in the 60s. Her blood pressure is increased with systolic 120-160, diastolic 70-80. Lopressor, Imdur, digoxin, and lisinopril have been on hold since admission. MRI of the brain done yesterday did not show any evidence of any acute process. Ms. Rios looks better today. She states she anticipates going to swing bed. Her labs are still pending this morning. Her blood pressure has recovered is actually high. I would recommend that we hold Lopressor and Imdur were digoxin and listed other indications arise. She will likely need something for her blood pressure but I would give it some time to stabilize. Blood last blood pressure was elevated. Because of her recent renal insufficiency might consider starting something such as a vasodilator like amlodipine at a low dose or hydralazine. She likely will need a JAY or ARB at some point I would give her kidney some time to recover and would not initiate as a first-line. There is nothing further for us to add at this time we will sign off. Please call if needed. I will be glad to see the patient in outpatient setting in a few months (2-3). Exam (Progress Note) - Constitutional Vitals: Period Temp Pulse Resp BP Sys/Ordoñez Pulse Ox Last 24 Hr 97.0 F-98.1 F 64-79 18-20 122-166/58-80 90-98 General appearance: no acute distress, morbidly obese - Head Head exam: Absent: abrasion, hematoma - Eye Eye exam: Absent: periorbital swelling, laceration to eyelids - Respiratory Respiratory exam: Present: clear to auscultation bilaterally. Absent: accessory muscle use, chest wall tenderness - Cardiovascular Cardiovascular exam: Present: regular rate and rhythm. Absent: bradycardia - GI/Abdominal GI/Abdominal exam: Present: normal bowel sounds, tenderness, soft. Absent: distended - Extremities Exam Extremities exam: Absent: edema - Neurological Exam Neurological exam: Present: alert, oriented X3 - Psychiatric Psychiatric exam: Present: normal affect, normal mood - Skin Skin exam: Present: warm, dry Result/EKG - Labs CBC & BMP: 10/11/16 05:36 10/11/16 05:36 Lab Results: I have reviewed the past 24 hour labs Labs: Laboratory Results - last 24 hr 10/11/16 10/11/16 10/11/16 11:33 15:05 19:59 POC Glucose 364 H 221 H 243 H 10/12/16 07:48 POC Glucose 259 H - EKG EKG results: interpreted by me EKG shows: sinus rhythm Quality Measures - Stroke Onset of Symptoms Date: 10/10/16 Onset of Symptoms Time: 07:00 Symptom Onset Unknown: No I, Ana aFust, , personally performed the services described in this documentation, ascribed by Nichole Salcido RN in my presence, and it is both accurate and complete .
[2016-10-12 10:32] LABS: Calcium 8.4 MG/DL (8.5-10.1); Osmolality,Calculated 294.5 MOS/KG (273-304); Potassium 5.3 MMOL/L (3.5-5.1)
[2016-10-12] MEDS: LISINOPRIL 20 MG TABLET PO SCH (14:36)
[2016-10-12] MEDS: ISOSORBIDE MONONITRATE 60 MG TABLET PO SCH (14:36)
[2016-10-12] MEDS: FLUCONAZOLE 200 MG TABLET PO SCH (14:36)
--- NOTE | 2016-10-12 14:45 | Hospitalist Progress Note ---
Assessment and Plan (1) Bradycardia Status: Acute Assessment and plan: 1)bradycardia and hyoptension- resolved. Due to meds. afib stopped- now NSR. No care home anticoagulation per cardiology. will not restart dig or metoprolol, but will resume lisinopril and imdur as she has taken for a long time for HTN. 2)dispo- to [facility] tomorrow. 3)encephalopathy- resolved. minimize meds 4)SHIMA- improving- baseline 1.1, now down to 1.3. 5)falls- to swing bed. minimize meds. Current Visit: Yes (2) Atrial fibrillation Status: Chronic Current Visit: No Qualifiers: Atrial fibrillation type: paroxysmal Qualified Code(s): I48.0 - Paroxysmal atrial fibrillation (3) Fibromyalgia Status: Chronic Current Visit: Yes (4) Multiple falls Status: Acute Current Visit: Yes (5) Morbid obesity Status: Chronic Current Visit: Yes Qualifiers: Obesity type: due to excess calories Qualified Code(s): E66.01 - Morbid ( severe) obesity due to excess calories (6) Essential hypertension Status: Chronic Current Visit: Yes (7) Diabetes mellitus Status: Chronic Current Visit: Yes Qualifiers: Diabetes mellitus type: type 2 Diabetes mellitus complication detail: with unspecified neuropathy (8) Acute kidney failure, unspecified Status: Acute Current Visit: Yes Hospitalist: Subjective Interval history: MRs Rios feels back to her usual self. She wants to take the least amount of pain medicine she needs and wants to discuss this with Dr vargas. Her narcotic doses now are the same as the way she actually takes them at home, different from the prescriptions, except that we did cut the neurontin back a lot because of her presentation. Her bradycardia and hypotension has resolved and she will go to med-surg floor now. Exam - Constitutional Vitals: Period Temp Pulse Resp BP Sys/Ordoñez Pulse Ox Last 24 Hr 97.0 F-97.8 F 64-79 18-20 122-166/68-80 90-94 General appearance: no acute distress, morbidly obese - Head Head exam: Present: normocephalic, atraumatic - Respiratory Respiratory exam: Present: clear to auscultation bilaterally - Cardiovascular Cardiovascular exam: Present: regular rate and rhythm - GI/Abdominal GI/Abdominal exam: Present: normal bowel sounds, soft. Absent: tenderness - Extremities Exam Extremities exam: Absent: edema Results - Labs CBC & BMP: 10/11/16 05:36 10/12/16 09:17 Lab Results: I have reviewed the past 24 hour labs Quality Measures - Stroke Onset of Symptoms Date: 10/10/16 Onset of Symptoms Time: 07:00 Symptom Onset Unknown: No
[2016-10-12] MEDS: cefTRIAXone 1,000 MG in SODIUM CHLORIDE 0.9% 100 ML IV SCH (14:55)
[2016-10-12] MEDS: oxyCODONE/ACETAMINOPHEN 5-325 MG TABLET PO SCH (21:02)
[2016-10-13 06:16] LABS: Osmolality,Calculated 289.4 MOS/KG (273-304); Potassium 5.5 MMOL/L (3.5-5.1)
[2016-10-13] MEDS: SODIUM CHLORIDE 0.9% 1,000 ML IV SCH ×2 (07:15→14:10)
[2016-10-13] MEDS: PARoxetine 20 MG TABLET PO SCH (08:06)
[2016-10-13] MEDS: LISINOPRIL 20 MG TABLET PO SCH (08:08)
[2016-10-13] MEDS: ISOSORBIDE MONONITRATE 60 MG TABLET PO SCH (08:08)
[2016-10-13] MEDS: FLUCONAZOLE 200 MG TABLET PO SCH (08:09)
[2016-10-13] MEDS: GABAPENTIN 300 MG CAPSULE PO SCH (08:09)
[2016-10-13] MEDS: INSULIN ASPART PROTAMINE/ASPART 70/30 100 UNIT/ML SUBCUT SCH (08:13)
[2016-10-13] MEDS: INSULIN REGULAR 100 UNIT/ML SUBCUT SCH ×2 (08:14→12:03)
--- NOTE | 2016-10-13 09:26 | Discharge Summary ---
<Jonathan Flores - Last Filed: 10/13/16 09:17> Discharge Plan - Discharge Data Disposition: Swing Bed, Hos Based, [facility] Condition at Discharge: Stable Discharge Diet: diabetic diet, heart healthy Activity: resume usual activities as tolerated Hygiene: no restrictions, other (Assistance as needed) Weight Bearing at Discharge: weight bear as tolerated Driving: not until seen by doctor Contact your physician if you experience:: fever over 101, Shortness of breath, pain uncontrolled by pain medications - Discharge Medications New Amlodipine Besylate 5 mg PO DAILY #90 tablet Gabapentin Cap/Tab [Neurontin Cap/Tab] 300 mg PO BID capsule HYDROcodone/ACETAMIN 10-325 [[place] 10-325] 1 tablet PO TID tablet Continue Pantoprazole Tab [Protonix Tab] 40 mg PO BID Metoclopramide Tab [Reglan Tab] 10 mg PO DAILY Albuterol Sulfate [Proair HFA] 2 puff INH Q6H PRN PRN Reason: Shortness Of Breath/Wheezing Magnesium Oxide 400 mg PO DAILY Isosorbide Mononitrate [Imdur] 60 mg PO DAILY Aspirin [Ecotrin] 325 mg PO DAILY Glyburide,Micronized [Glyburide Micronized] 6 mg PO BID W/MEALS PARoxetine HCl [Paxil] 80 mg PO DAILY Fenofibrate [Tricor] 145 mg PO DAILY Montelukast Tab [Singulair Tab] 10 mg PO DAILY Methocarbamol Tab [Robaxin Tab] 500 mg PO TID PRN PRN Reason: Muscle Spasm Lisinopril [Prinivil] 20 mg PO DAILY Promethazine Tab [Phenergan Tab] 25 mg PO Q8HR PRN PRN Reason: Nausea ARIPiprazole [Abilify] 2 mg PO DAILY Diclofenac 1% Gel [Voltaren 1% Gel] 1 applic DAILY PRN PRN Reason: Pain Insulin Aspart Prot/Asp 70/30 [NovoLOG Mix 70/30] 60 unit SUBCUT AC BREAKFAST #1 unit Clopidogrel [Plavix] 75 mg PO DAILY clonazePAM TAB [KlonoPIN] 1 mg PO TID Insulin Aspart Prot/Asp 70/30 [NovoLOG Mix 70/30] 50 unit SUBCUT AC SUPPER # 7 unit Oxycodone HCl/Acetaminophen [Percocet 10-325 mg Tablet] 1 each PO BEDTIME # 20 Discontinued HYDROcodone/ACETAMIN 10-325 [[place] 10-325] 1 tablet PO Q6H Metoprolol Tartrate 12.5 mg PO BID Gabapentin Cap/Tab [Neurontin Cap/Tab] 600 mg PO TID Atorvastatin Calcium [Lipitor] 80 mg PO DAILY Digoxin Tab [Lanoxin Tab] 0.125 mg PO DAILY traZODone [Desyrel] 150 mg PO BID Meclizine [Antivert] 25 mg PO TID PRN PRN Reason: Dizziness Meloxicam 7.5 mg PO DAILY - Follow Up or Referral Follow Up: Ana Faust DO [Physician] - (2 months ) - Forms/Instructions Exam - Constitutional Vitals: Period Temp Pulse Resp BP Sys/Ordoñez Pulse Ox Last 24 Hr 97.3 F-98.6 F 63-77 18-22 152-222/67-110 92-98 General appearance: over weight - Head Head exam: Present: normocephalic, atraumatic - Eye Eye exam: Present: EOMI Pupils: Present: KATHIE - ENT ENT exam: Present: normal exam, normal oropharynx - Respiratory Respiratory exam: Present: clear to auscultation bilaterally - Cardiovascular Cardiovascular exam: Present: regular rate and rhythm - GI/Abdominal GI/Abdominal exam: Present: normal bowel sounds, soft, other (Obese) - Extremities Exam Extremities exam: Present: full ROM - Neurological Exam Neurological exam: Present: alert, oriented X3, CN II-XII intact - Psychiatric Psychiatric exam: Present: normal affect, normal mood - Skin Skin exam: Present: normal color, warm, dry Discharge Results Procedures and tests throughout hospitalization: Pending Orders 10/10/16 16:32 Blood Culture Stat Labs on day of discharge: Labs from last 24 hours 10/13/16 10/13/16 10/12/16 07:16 05:06 19:51 Sodium 140 Potassium 5.5 H Chloride 102 Carbon Dioxide 32 Anion Gap 11.5 BUN 19 H Creatinine 1.30 H GFR Calculation 58 BUN/Creatinine Ratio 14.00 Glucose 257 H POC Glucose 267 H 307 H Calculated Osmolality 289.4 Calcium 9.0 10/12/16 10/12/16 10/12/16 15:37 11:47 09:17 Sodium 139 Potassium 5.3 H Chloride 103 Carbon Dioxide 32 Anion Gap 9.3 BUN 18 Creatinine 1.30 H GFR Calculation 58 BUN/Creatinine Ratio 13.00 Glucose 378 H POC Glucose 271 H 349 H Calculated Osmolality 294.5 Calcium 8.4 L Preliminary micro results at discharge 10/10/16 Unknown Urine Culture - Preliminary Urine,Catheterized Yeast 10/10/16 16:32 Blood Culture - Preliminary Blood No growth at 1 day 10/10/16 16:38 Blood Culture - Preliminary Blood No growth at 1 day DS: Provider Date of admission: 10/10/16 14:42 Primary care physician: . No PCP Attending physician on admission: Manasa Caal MD Consults: 10/10/16 15:41 Consult to Case Mgmt/Social Srvs [CONS] Routine Reason for Case Mgmt/Social Srvs: Discharge Planning Consult to Case Mgmt/Social Srvs [CONS] Routine Reason for Case Mgmt/Social Srvs: Rehab Other Consult to Occupational Therapy [CONS] Routine Reason for Occupational Therapy: Evaluate and Treat Consult to Physical Therapy [CONS] Routine Reason for Physical Therapy: Evaluate and Treat Consult to Physician [CONS] Routine Comment: Consulting Provider: Consult to Physician [CONS] Routine Comment: Consulting Provider: Cardiology - [facility] Person Notified: chasity Date Notified: 10/10/16 Time Notified: 15:57 Consult to Physician [CONS] Routine Comment: Consulting Provider: Miguel Cui Person Notified: Dr. Cui Date Notified: 10/10/16 Time Notified: 15:58 Consult Notification Comment: Also left message with Chris at the office 10/10/16 15:46 Consult to Pharmacy [CONS] Routine Reason for Pharmacy Consult: Adjust Meds Renal Funct 10/12/16 13:54 Consult to Physician [CONS] Routine Comment: known to you plz help with minimizing painmeds Consulting Provider: Sabi Lynne Consult to Specialist Group: Pain Management Consult Notification Comment: CALLED TO DR. LYNNE'S PAGER AROUND 1400 BUT NO RETURN CALL Discharging clinician: Jonathan Flores MD <Ijeoma Gonzalez - Last Filed: 10/13/16 10:51> Hospital Course - Hospital Course Hospital Course: Ms. Rios is a 65-year-old female admitted by the hospitalist service on 2016 for hypertension and A. fib with heart rate 35-60, weakness and falling over the last couple of days and altered mental status. All of her antihypertensive medications, dig, and diuretics were held. She is also on some pain medication for chronic pain from Dr. Lynne and these have been cut back slightly. She was gently rehydrated. Her EEG is still pending and CT and MRI of the brain were normal. Dr. Cui from neurology was consulted and will repeat her EEG. Patient's bradycardia and hypotension of now resolved. These were due to her medicines. Her A. fib is stopped and she is now in normal sinus rhythm. Cardiology had been consulted and they do not recommend long-term anticoagulation. They also recommend not restarting her dig or metoprolol yet but resume lisinopril and Imdur. She has been started on amlodipine for elevated blood pressure now due to acute kidney injury. Her encephalopathy has improved but she is going to go to swing bed for further strengthening. She also had some acute kidney injury due to the bradycardia but this is now resolving. Patient will need to follow-up with Dr. Faust from cardiology in 2-3 months. Patient's care was coordinated with group social worker, Dr. Flores the hospitalist, Dr. Faust, Dr. Cui, nursing, and patient. Total discharge time which includes chart review and discharge summary took approximately 35 minutes - Time spent with patient Time with patient DS: Greater than 30 minutes Diagnosis - Discharge Diagnosis (1) Status post fall Status: Resolved (2) Diabetes mellitus Status: Chronic (3) Syncope Status: Resolved (4) Altered mental status Status: Resolved (5) Chronic pain syndrome Status: Chronic (6) Dehydration Status: Resolved (7) HTN (hypertension) Status: Chronic (8) Acute kidney failure, unspecified Status: Resolved (9) Bradycardia Status: Resolved DS: Provider Expected date of discharge: 10/13/16
[2016-10-13 12:02] VITALS: BP 151/104
[2016-10-13] MEDS ORDERED: amLODIPine 5 MG TABLET PO ONE (12:12)
== END 2016-10-13 13:20 | disposition swing bed (61) | DRG 309 ==
LOC: N.ED 10:57 → N.EDINP 14:42 → SUATTDRO 14:42 → N.TELEN 15:30 → N.4E 10-12 16:16
PROVIDERS: ADMIT Internal Medicine; ATTEND Internal Medicine Infectious Disease

== ENCOUNTER 2017-09-27 05:54 | Observation (INO) ==
[2017-09-27] MEDS ORDERED: diphenhydrAMINE CAP 25 MG CAPSULE PO ONE (06:00)
[2017-09-27] MEDS ORDERED: DIAZEPAM 5 MG TABLET PO ONE (06:00)
[2017-09-27] MEDS ORDERED: DIAZEPAM 5 MG TABLET ONE (06:45)
[2017-09-27] MEDS ORDERED: ASPIRIN 325 MG TABLET ONE (06:45)
[2017-09-27] MEDS ORDERED: diphenhydrAMINE CAP 25 MG CAPSULE ONE (06:45)
[2017-09-27] MEDS: SODIUM CHLORIDE 0.45% 1,000 ML IV SCH ×2 (06:50→12:18)
[2017-09-27] MEDS ORDERED: ASPIRIN 325 MG TABLET PO ONE (06:51)
[2017-09-27] MEDS ORDERED: HEPARIN/NACL 0.9% 2 UNITS/ML 1,000 ML IV ONE (07:03)
[2017-09-27] MEDS ORDERED: NITROGLYCERIN DRIP 50 MG/250 ML BOTTLE IV ONE (07:10)
[2017-09-27] MEDS ORDERED: VERAPAMIL 5 MG/2 ML VIAL ONE (07:10)
[2017-09-27] MEDS ORDERED: fentaNYL 100 MCG/2 ML VIAL ONE ×2 (07:12→07:52)
[2017-09-27] MEDS ORDERED: MIDAZOLAM 2 MG/2 ML VIAL ONE ×3 (07:12→07:46)
[2017-09-27] MEDS ORDERED: ENOXAPARIN 60 MG/0.6 ML SYRINGE ONE (07:20)
[2017-09-27] MEDS ORDERED: ADENOSINE 90 MG/30 ML VIAL IV ONE (07:26)
[2017-09-27] MEDS ORDERED: HEPARIN/NACL 0.9% 2 UNITS/ML 500 ML IV ONE (07:55)
[2017-09-27] MEDS ORDERED: NITROPRUSSIDE 50 MG/2 ML VIAL ONE (08:01)
[2017-09-27] MEDS ORDERED: CLOPIDOGREL 300 MG TABLET ONE (08:17)
[2017-09-27] MEDS ORDERED: ALUM/MAG/SIMETH/LIDO VISC 1:1 30 ML BOTTLE PO ONE (08:19)
[2017-09-27] MEDS ORDERED: ACETAMINOPHEN 325 MG TABLET PO PRN (08:25)
[2017-09-27] MEDS ORDERED: NITROGLYCERIN SL 0.4 MG TABLET SL PRN (08:25)
[2017-09-27] MEDS ORDERED: ONDANSETRON 4 MG/2 ML VIAL IV PRN (08:25)
[2017-09-27] MEDS ORDERED: ZALEPLON 5 MG CAPSULE PO PRN (08:25)
[2017-09-27] MEDS ORDERED: MECLIZINE 25 MG TABLET PO PRN (08:27)
[2017-09-27] MEDS ORDERED: DEXTROSE 50% 25 GM/50 ML VIAL IV PRN (08:31)
[2017-09-27] MEDS ORDERED: GLUCAGON 1 MG VIAL IM PRN (08:31)
[2017-09-27] MEDS ORDERED: ALBUTEROL 2.5 MG/3 ML NEB RESP TX PRN (10:00)
[2017-09-27] MEDS: ARIPiprazole 2 MG TABLET PO SCH (11:27)
[2017-09-27] MEDS: VERAPAMIL SR 180 MG TABLET PO SCH ×2 (11:28→21:07)
[2017-09-27] MEDS: ASPIRIN EC 81 MG TABLET PO SCH (11:28)
[2017-09-27] MEDS: INSULIN REGULAR 100 UNIT/ML SUBCUT SCH ×3 (11:29→21:19)
[2017-09-27] MEDS: METOPROLOL TARTRATE 25 MG TABLET PO SCH ×2 (11:29→21:10)
[2017-09-27] MEDS: ISOSORBIDE MONONITRATE 30 MG TABLET PO SCH (11:29)
[2017-09-27] MEDS: CALCIUM (CARBONATE) 500 MG TABLET PO SCH (11:31)
[2017-09-27] MEDS: LISINOPRIL 20 MG TABLET PO SCH (11:32)
[2017-09-27] MEDS: CLOPIDOGREL 75 MG TABLET PO SCH (11:32)
[2017-09-27] MEDS: PARoxetine 20 MG TABLET PO SCH ×2 (11:32→21:09)
[2017-09-27] MEDS: PANTOPRAZOLE 40 MG TABLET PO SCH ×2 (11:32→21:09)
[2017-09-27] MEDS: FENOFIBRATE 145 MG TABLET PO SCH (11:33)
[2017-09-27] MEDS: CHOLECALCIFEROL 5,000 UNIT TABLET PO SCH (11:33)
[2017-09-27] MEDS: GABAPENTIN 600 MG TABLET PO SCH ×2 (11:33→21:10)
[2017-09-27] MEDS: METHOCARBAMOL 500 MG TABLET PO SCH ×2 (11:33→21:10)
[2017-09-27] MEDS: MONTELUKAST 10 MG TABLET PO SCH (11:33)
[2017-09-27] MEDS: INSULIN ASPART PROTAMINE/ASPART 70/30 100 UNIT/ML SUBCUT SCH ×2 (11:47→21:05)
[2017-09-27] MEDS ORDERED: DIGOXIN 0.125 MG TABLET PO SCH (13:00)
[2017-09-27] MEDS: ATORVASTATIN 80 MG TABLET PO SCH (21:08)
[2017-09-27] MEDS: MAGNESIUM OXIDE 400 MG TABLET PO SCH (21:09)
[2017-09-28 05:11] LABS: Basophils # 0.1 10*3/uL (0.0-0.2); Basophils % 0.7 % (0.0-0.8); Eosinophils # 0.6 10*3/uL (0.0-0.87); Eosinophils % 6.1 % (0.00-10.9); Hematocrit 33.1 VOL% (35.7-47.0); Hemoglobin 10.8 GM/DL (12.0-16.0); Immature Granulocytes % 0.7 %; Immature Granulocytes Absolute 0.07 #; Lymphocytes # 4.4 10*3/uL (1.4-4.0); Lymphocytes % 45.9 % (21.3-54.2); Mean Corpuscular HGB Conc 32.6 GM/DL (32-36); Mean Corpuscular Hemoglobin 30 PG (27-34); Mean Corpuscular Volume 92.2 FL (87-102); Mean Platelet Volume 11.1 FL (9.6-12.0); Monocytes % 10.3 % (1.7-12.7); Neutrophils # 3.5 10*3/uL (1.4-7.4); Neutrophils % 36.3 % (38.7-73.9); Platelet Count 244 T/CUMM (130-400); Red Blood Count 3.59 MC/CUMM (3.8-5.5); Red Cell Distribution Width 14.9 % (9.3-17.3); White Blood Count 9.6 T/CUMM (4-12)
[2017-09-28 05:43] LABS: Calcium 8.7 MG/DL (8.5-10.1); Osmolality,Calculated 282.3 MOS/KG (273-304); Potassium 4.3 MMOL/L (3.5-5.1)
[2017-09-28 07:14] LABS: Atypical Lymphocytes Few; Eosinophils 7 % (0-10); Lymphocytes 32 % (20-55); Segmented Neutrophils 53 % (50-85); Total Cells Counted 100
[2017-09-28 07:15] LABS: Hypochromasia Slight; Platelet Estimate Adequate
[2017-09-28] MEDS: ARIPiprazole 2 MG TABLET PO SCH (09:38)
[2017-09-28] MEDS: GABAPENTIN 600 MG TABLET PO SCH ×2 (09:39→20:51)
[2017-09-28] MEDS: CALCIUM (CARBONATE) 500 MG TABLET PO SCH (09:39)
[2017-09-28] MEDS: ASPIRIN EC 81 MG TABLET PO SCH (09:39)
[2017-09-28] MEDS: CLOPIDOGREL 75 MG TABLET PO SCH (09:39)
[2017-09-28] MEDS: INSULIN ASPART PROTAMINE/ASPART 70/30 100 UNIT/ML SUBCUT SCH ×2 (09:39→20:50)
[2017-09-28] MEDS: INSULIN REGULAR 100 UNIT/ML SUBCUT SCH ×3 (09:39→20:52)
[2017-09-28] MEDS: ISOSORBIDE MONONITRATE 30 MG TABLET PO SCH (09:39)
[2017-09-28] MEDS: PARoxetine 20 MG TABLET PO SCH ×2 (09:39→20:50)
[2017-09-28] MEDS: METOPROLOL TARTRATE 25 MG TABLET PO SCH (09:39)
[2017-09-28] MEDS: VERAPAMIL SR 180 MG TABLET PO SCH (09:39)
[2017-09-28] MEDS: LISINOPRIL 20 MG TABLET PO SCH (09:39)
[2017-09-28] MEDS: PANTOPRAZOLE 40 MG TABLET PO SCH ×2 (09:39→20:51)
[2017-09-28] MEDS: FENOFIBRATE 145 MG TABLET PO SCH (09:40)
[2017-09-28] MEDS: METHOCARBAMOL 500 MG TABLET PO SCH ×2 (09:40→20:51)
[2017-09-28] MEDS: MONTELUKAST 10 MG TABLET PO SCH (09:40)
[2017-09-28] MEDS: CHOLECALCIFEROL 5,000 UNIT TABLET PO SCH (09:40)
[2017-09-28] MEDS: NON-FORMULARY MEDICATION (Umeclidinium Brm/Vilanterol Tr [Anoro Ellipta] 1 PUFF) INH SCH (18:17)
[2017-09-28] MEDS: ATORVASTATIN 80 MG TABLET PO SCH (20:51)
[2017-09-28] MEDS: MAGNESIUM OXIDE 400 MG TABLET PO SCH (20:51)
[2017-09-29] MEDS: GABAPENTIN 600 MG TABLET PO SCH ×2 (09:51→21:31)
[2017-09-29] MEDS: INSULIN REGULAR 100 UNIT/ML SUBCUT SCH ×3 (09:51→21:35)
[2017-09-29] MEDS: ASPIRIN EC 81 MG TABLET PO SCH (09:51)
[2017-09-29] MEDS: ARIPiprazole 2 MG TABLET PO SCH (09:51)
[2017-09-29] MEDS: ISOSORBIDE MONONITRATE 30 MG TABLET PO SCH (09:51)
[2017-09-29] MEDS: INSULIN ASPART PROTAMINE/ASPART 70/30 100 UNIT/ML SUBCUT SCH ×2 (09:51→21:33)
[2017-09-29] MEDS: PARoxetine 20 MG TABLET PO SCH ×2 (09:52→21:30)
[2017-09-29] MEDS: FENOFIBRATE 145 MG TABLET PO SCH (09:52)
[2017-09-29] MEDS: PANTOPRAZOLE 40 MG TABLET PO SCH ×2 (09:52→21:49)
[2017-09-29] MEDS: LISINOPRIL 20 MG TABLET PO SCH (09:52)
[2017-09-29] MEDS: CHOLECALCIFEROL 5,000 UNIT TABLET PO SCH (09:52)
[2017-09-29] MEDS: METHOCARBAMOL 500 MG TABLET PO SCH ×2 (09:52→21:32)
[2017-09-29] MEDS: MONTELUKAST 10 MG TABLET PO SCH (09:52)
[2017-09-29] MEDS: CALCIUM (CARBONATE) 500 MG TABLET PO SCH (09:52)
[2017-09-29] MEDS: CLOPIDOGREL 75 MG TABLET PO SCH (09:52)
[2017-09-29] MEDS: MAGNESIUM OXIDE 400 MG TABLET PO SCH (21:30)
[2017-09-29] MEDS: METOPROLOL TARTRATE 25 MG TABLET PO SCH (21:31)
[2017-09-29] MEDS: ATORVASTATIN 80 MG TABLET PO SCH (21:32)
[2017-09-30 08:14] VITALS: BP 140/63
[2017-09-30] MEDS: GABAPENTIN 600 MG TABLET PO SCH (08:59)
[2017-09-30] MEDS: ISOSORBIDE MONONITRATE 30 MG TABLET PO SCH (08:59)
[2017-09-30] MEDS: ARIPiprazole 2 MG TABLET PO SCH (08:59)
[2017-09-30] MEDS: METHOCARBAMOL 500 MG TABLET PO SCH (09:00)
[2017-09-30] MEDS: MONTELUKAST 10 MG TABLET PO SCH (09:00)
[2017-09-30] MEDS: CHOLECALCIFEROL 5,000 UNIT TABLET PO SCH (09:00)
[2017-09-30] MEDS: PARoxetine 20 MG TABLET PO SCH (09:00)
[2017-09-30] MEDS: FENOFIBRATE 145 MG TABLET PO SCH (09:00)
[2017-09-30] MEDS: METOPROLOL TARTRATE 25 MG TABLET PO SCH (09:01)
[2017-09-30] MEDS: CLOPIDOGREL 75 MG TABLET PO SCH (09:01)
[2017-09-30] MEDS: PANTOPRAZOLE 40 MG TABLET PO SCH (09:01)
[2017-09-30] MEDS: LISINOPRIL 20 MG TABLET PO SCH (09:01)
[2017-09-30] MEDS: ASPIRIN EC 81 MG TABLET PO SCH (09:01)
[2017-09-30] MEDS: CALCIUM (CARBONATE) 500 MG TABLET PO SCH (09:01)
[2017-09-30] MEDS: INSULIN ASPART PROTAMINE/ASPART 70/30 100 UNIT/ML SUBCUT SCH (09:03)
[2017-09-30] MEDS: INSULIN REGULAR 100 UNIT/ML SUBCUT SCH (09:10)
== END 2017-09-30 11:37 | disposition home or self-care (01) ==
LOC: N.CL 05:54 → N.2E 05:54 → N.CL 06:15 → EDSDCBED 09:10 → N.TELES 09:10 → N.CL 09-30 11:37 → UNDODEPSDC 09-30 16:41
PROVIDERS: ADMIT Internal Medicine Cardiovascular Disease; ATTEND Internal Medicine Cardiovascular Disease
PROC: CLCCHCL (ICD-10-PCS; 2017-09-27 07:45)

== ENCOUNTER 2018-08-19 23:32 | Inpatient (IN) ==
[2018-08-20] MEDS ORDERED: SODIUM CHLORIDE 0.9% 500 ML IV STA (00:22)
[2018-08-20 00:43] LABS: Basophils # 0.1 10*3/uL (0.0-0.2); Basophils % 0.7 % (0.0-0.8); Eosinophils % 0.1 % (0.00-10.9); Hematocrit 37.9 VOL% (35.7-47.0); Hemoglobin 12.5 GM/DL (12.0-16.0); Immature Granulocytes % 0.8 %; Lymphocytes # 1.4 10*3/uL (1.4-4.0); Lymphocytes % 10.7 % (21.3-54.2); Mean Corpuscular Hemoglobin 29 PG (27-34); Mean Corpuscular Volume 87.5 FL (87-102); Mean Platelet Volume 11.6 FL (9.6-12.0); Monocytes # 0.9 10*3/uL (0.11-0.8); Monocytes % 6.6 % (1.7-12.7); Neutrophils # 10.4 10*3/uL (1.4-7.4); Neutrophils % 81.1 % (38.7-73.9); Platelet Count 230 T/CUMM (130-400); Red Blood Count 4.33 MC/CUMM (3.8-5.5); Red Cell Distribution Width 13.2 % (9.3-17.3); White Blood Count 12.8 T/CUMM (4-12)
[2018-08-20 00:54] LABS: PT Patient Result 10.5 SECS
[2018-08-20 01:02] LABS: Alanine Aminotransferase 9 U/L (13-56); Albumin 2.7 G/DL (3.4-5.0); Alkaline Phosphatase 93 U/L (45-117); Aspartate Amino Transferase 16 U/L (0-37); Blood Urea Nitrogen 33 MG/DL (7-18); Calcium 8.4 MG/DL (8.5-10.1); Glucose 272 MG/DL (74-106); Osmolality,Calculated 280.5 MOS/KG (273-304); Sodium 132 MMOL/L (136-145); Troponin I 0.034 NG/ML (0.00-0.045)
[2018-08-20 01:04] LABS: Potassium 2.5 MMOL/L (3.5-5.1)
[2018-08-20] MEDS ORDERED: POTASSIUM CHLORIDE 20 MEQ TABLET PO STA (01:07)
[2018-08-20 01:15] LABS: Apearance,Urine CLOUDY (Clear); Bacteria,Urine Many /HPF (Few); Bilirubin,Urine Negative (Negative); Blood, Urine Moderate mg/dL (Negative); Glucose,Urine (UA) 50 mg/dL (Negative); Ketones,Urine Negative (Negative); Mucus,Urine Many /LPF (Occasional); Nitrite,Urine Negative (Negative); Protein,Urine 100 MG/DL; RBC,Urine 8 /HPF (0-4); Squamous Epithelial Cell,Urine Occasional /HPF (0-10); Urine Color Yellow (Yellow); Urine Specific Gravity 1.015 (1.001-1.035); Urine Urobilinogen < 2.0 EU/DL (0.2-1.0); WBC,Urine 182 /HPF (0-6)
[2018-08-20] MEDS ORDERED: cefTRIAXone 1,000 MG in SODIUM CHLORIDE 0.9% 100 ML IV STA (01:24)
[2018-08-20 01:28] LABS: Barbiturates Screen,Urine Negative (Negative); Benzodiazepines Screen,Urine Negative (Negative); Cannabinoid Screen,Urine Negative (Negative); Opiate Screen,Urine Positive (Negative); Phencyclidine Screen,Urine Negative (Negative)
[2018-08-20] MEDS ORDERED: SODIUM CHLORIDE 0.9% 1,000 ML IV SCH (04:00)
[2018-08-20] MEDS ORDERED: GLUCAGON 1 MG VIAL IM PRN (04:01)
[2018-08-20] MEDS ORDERED: DEXTROSE 50% 25 GM/50 ML SYRINGE IV PRN (04:01)
[2018-08-20 05:16] LABS: Basophils # 0.1 10*3/uL (0.0-0.2); Basophils % 0.6 % (0.0-0.8); Eosinophils % 0.2 % (0.00-10.9); Hematocrit 39.3 VOL% (35.7-47.0); Hemoglobin 12.7 GM/DL (12.0-16.0); Immature Granulocytes % 0.6 %; Immature Granulocytes Absolute 0.08 #; Lymphocytes % 15.4 % (21.3-54.2); Mean Corpuscular HGB Conc 32.3 GM/DL (32-36); Mean Corpuscular Hemoglobin 29 PG (27-34); Mean Corpuscular Volume 89.3 FL (87-102); Mean Platelet Volume 11.8 FL (9.6-12.0); Monocytes # 0.9 10*3/uL (0.11-0.8); Monocytes % 6.8 % (1.7-12.7); Neutrophils # 9.7 10*3/uL (1.4-7.4); Neutrophils % 76.4 % (38.7-73.9); Platelet Count 221 T/CUMM (130-400); Red Cell Distribution Width 13.2 % (9.3-17.3); White Blood Count 12.7 T/CUMM (4-12)
[2018-08-20 05:46] LABS: Calcium 8.7 MG/DL (8.5-10.1); Osmolality,Calculated 281.5 MOS/KG (273-304); Potassium 3.2 MMOL/L (3.5-5.1); Thyroid Stimulating Hormone 0.282 uIU/ml (0.358-3.74)
[2018-08-20] MEDS: POTASSIUM CHLORIDE 20 MEQ TABLET PO PRN ×2 (06:28→08:31)
[2018-08-20] MEDS: INSULIN REGULAR 100 UNIT/ML SUBCUT SCH ×4 (08:30→20:50)
[2018-08-20] MEDS: ONDANSETRON 4 MG/2 ML VIAL IV PRN (08:31)
[2018-08-20] MEDS: ACETAMINOPHEN 325 MG TABLET PO PRN (10:35)
[2018-08-20] MEDS: oxyCODONE IR 5 MG TABLET PO PRN (14:00)
[2018-08-21 04:03] LABS: Basophils # 0.1 10*3/uL (0.0-0.2); Basophils % 0.5 % (0.0-0.8); Eosinophils # 0.1 10*3/uL (0.0-0.87); Eosinophils % 0.9 % (0.00-10.9); Hematocrit 32.8 VOL% (35.7-47.0); Hemoglobin 10.6 GM/DL (12.0-16.0); Immature Granulocytes % 0.2 %; Immature Granulocytes Absolute 0.02 #; Lymphocytes % 20.2 % (21.3-54.2); Mean Corpuscular HGB Conc 32.3 GM/DL (32-36); Mean Corpuscular Hemoglobin 29 PG (27-34); Mean Corpuscular Volume 88.2 FL (87-102); Monocytes % 10.7 % (1.7-12.7); Neutrophils # 6.5 10*3/uL (1.4-7.4); Neutrophils % 67.5 % (38.7-73.9); Platelet Count 173 T/CUMM (130-400); Red Blood Count 3.72 MC/CUMM (3.8-5.5); Red Cell Distribution Width 13.4 % (9.3-17.3); White Blood Count 9.6 T/CUMM (4-12)
[2018-08-21 04:26] LABS: Calcium 7.4 MG/DL (8.5-10.1); Potassium 3.5 MMOL/L (3.5-5.1); Thyroid Stimulating Hormone 0.163 uIU/ml (0.358-3.74)
[2018-08-21] MEDS: oxyCODONE IR 5 MG TABLET PO PRN ×3 (08:12→21:48)
[2018-08-21] MEDS: INSULIN REGULAR 100 UNIT/ML SUBCUT SCH ×4 (09:24→21:39)
[2018-08-21] MEDS ORDERED: cefTRIAXone 1,000 MG in SYRINGE 1 EACH IV SCH (11:00)
[2018-08-21] MEDS ORDERED: ALBUTEROL 2.5 MG/3 ML NEB RESP TX PRN (13:57)
[2018-08-21] MEDS ORDERED: PROMETHAZINE 25 MG TABLET PO PRN (13:57)
[2018-08-21] MEDS ORDERED: MECLIZINE 25 MG TABLET PO PRN (13:57)
[2018-08-21] MEDS ORDERED: NITROGLYCERIN SL 0.4 MG TABLET SL PRN (13:57)
[2018-08-21] MEDS: INSULIN GLARGINE 100 UNIT/ML SUBCUT SCH (16:53)
[2018-08-21] MEDS: PANTOPRAZOLE 40 MG TABLET PO SCH ×2 (16:54→20:47)
[2018-08-21] MEDS: SODIUM CHLORIDE 0.9% 1,000 ML IV SCH (16:54)
[2018-08-21] MEDS: traZODone 50 MG TABLET PO SCH (20:47)
[2018-08-21] MEDS: ACETAMINOPHEN 325 MG TABLET PO PRN (20:48)
[2018-08-21] MEDS ORDERED: Vortioxetine Hydrobromide [Trintellix] 10 MG PO SCH (21:00)
[2018-08-21] MEDS ORDERED: ATORVASTATIN 80 MG TABLET PO SCH (21:00)
[2018-08-21] MEDS: hydrOXYzine HCL 25 MG TABLET PO PRN (21:39)
[2018-08-22] MEDS: SODIUM CHLORIDE 0.9% 1,000 ML IV SCH ×3 (04:11→17:39)
[2018-08-22 04:52] LABS: Basophils % 0.5 % (0.0-0.8); Eosinophils # 0.3 10*3/uL (0.0-0.87); Eosinophils % 3.9 % (0.00-10.9); Hematocrit 31.8 VOL% (35.7-47.0); Hemoglobin 10.2 GM/DL (12.0-16.0); Immature Granulocytes % 0.3 %; Immature Granulocytes Absolute 0.02 #; Lymphocytes # 1.9 10*3/uL (1.4-4.0); Lymphocytes % 25.9 % (21.3-54.2); Mean Corpuscular HGB Conc 32.1 GM/DL (32-36); Mean Corpuscular Hemoglobin 29 PG (27-34); Mean Corpuscular Volume 89.1 FL (87-102); Monocytes % 13.3 % (1.7-12.7); Neutrophils # 4.2 10*3/uL (1.4-7.4); Neutrophils % 56.1 % (38.7-73.9); Platelet Count 180 T/CUMM (130-400); Red Blood Count 3.57 MC/CUMM (3.8-5.5); Red Cell Distribution Width 13.4 % (9.3-17.3); White Blood Count 7.5 T/CUMM (4-12)
[2018-08-22 05:14] LABS: Calcium 8.1 MG/DL (8.5-10.1); Osmolality,Calculated 279.7 MOS/KG (273-304); Potassium 3.4 MMOL/L (3.5-5.1)
[2018-08-22] MEDS: POTASSIUM CHLORIDE 20 MEQ TABLET PO PRN (06:13)
[2018-08-22] MEDS: oxyCODONE IR 5 MG TABLET PO PRN (06:29)
[2018-08-22] MEDS: INSULIN REGULAR 100 UNIT/ML SUBCUT SCH ×4 (08:12→21:26)
[2018-08-22] MEDS ORDERED: Umeclidinium Brm/Vilanterol Tr [Anoro Ellipta] INH SCH (09:00)
[2018-08-22] MEDS: MONTELUKAST 10 MG TABLET PO SCH (09:17)
[2018-08-22] MEDS: CLOPIDOGREL 75 MG TABLET PO SCH (09:17)
[2018-08-22] MEDS: ASPIRIN EC 81 MG TABLET PO SCH (09:17)
[2018-08-22] MEDS: INSULIN GLARGINE 100 UNIT/ML SUBCUT SCH (09:17)
[2018-08-22] MEDS: ALLOPURINOL 100 MG TABLET PO SCH (09:17)
[2018-08-22] MEDS: PANTOPRAZOLE 40 MG TABLET PO SCH ×2 (09:17→21:04)
[2018-08-22] MEDS: MEROPENEM 500 MG in SODIUM CHLORIDE 0.9% 100 ML IV SCH (12:41)
[2018-08-22] MEDS: ONDANSETRON 4 MG/2 ML VIAL IV PRN (16:29)
[2018-08-22] MEDS: DOCUSATE SODIUM 100 MG CAPSULE PO PRN (21:02)
[2018-08-22] MEDS: traZODone 50 MG TABLET PO SCH (21:03)
[2018-08-22] MEDS: hydrOXYzine HCL 25 MG TABLET PO PRN (21:04)
[2018-08-23] MEDS: MEROPENEM 500 MG in SODIUM CHLORIDE 0.9% 100 ML IV SCH ×2 (00:54→11:51)
[2018-08-23 04:54] LABS: Basophils # 0.1 10*3/uL (0.0-0.2); Basophils % 0.6 % (0.0-0.8); Eosinophils # 0.3 10*3/uL (0.0-0.87); Eosinophils % 3.5 % (0.00-10.9); Hemoglobin 10.3 GM/DL (12.0-16.0); Immature Granulocytes % 0.6 %; Immature Granulocytes Absolute 0.05 #; Lymphocytes # 2.2 10*3/uL (1.4-4.0); Lymphocytes % 26.1 % (21.3-54.2); Mean Corpuscular HGB Conc 31.2 GM/DL (32-36); Mean Corpuscular Hemoglobin 28 PG (27-34); Mean Corpuscular Volume 90.4 FL (87-102); Mean Platelet Volume 11.8 FL (9.6-12.0); Monocytes % 11.9 % (1.7-12.7); Neutrophils # 4.8 10*3/uL (1.4-7.4); Neutrophils % 57.3 % (38.7-73.9); Platelet Count 219 T/CUMM (130-400); Red Blood Count 3.65 MC/CUMM (3.8-5.5); Red Cell Distribution Width 13.7 % (9.3-17.3); White Blood Count 8.4 T/CUMM (4-12)
[2018-08-23 05:26] LABS: Calcium 8.4 MG/DL (8.5-10.1); Osmolality,Calculated 282.7 MOS/KG (273-304); Potassium 3.9 MMOL/L (3.5-5.1)
[2018-08-23] MEDS ORDERED: MAGNESIUM SULF RIDER 4 GM in PREMIX 1 EACH IV PRN (06:00)
[2018-08-23] MEDS: MAGNESIUM SULF RIDER 2 GM in PREMIX 1 EACH IV PRN (06:27)
[2018-08-23] MEDS: POTASSIUM CHLORIDE 20 MEQ TABLET PO PRN (06:27)
[2018-08-23] MEDS: SODIUM CHLORIDE 0.9% 1,000 ML IV SCH ×2 (06:31→22:26)
[2018-08-23] MEDS: MONTELUKAST 10 MG TABLET PO SCH (09:07)
[2018-08-23] MEDS: PANTOPRAZOLE 40 MG TABLET PO SCH ×2 (09:07→23:30)
[2018-08-23] MEDS: ALLOPURINOL 100 MG TABLET PO SCH (09:08)
[2018-08-23] MEDS: ASPIRIN EC 81 MG TABLET PO SCH (09:08)
[2018-08-23] MEDS: CLOPIDOGREL 75 MG TABLET PO SCH (09:08)
[2018-08-23] MEDS: INSULIN GLARGINE 100 UNIT/ML SUBCUT SCH (09:09)
[2018-08-23] MEDS: INSULIN REGULAR 100 UNIT/ML SUBCUT SCH ×4 (09:09→23:48)
[2018-08-23] MEDS: GABAPENTIN 100 MG CAPSULE PO SCH ×2 (12:59→23:29)
[2018-08-23] MEDS: POLYETHYLENE GLYCOL POWDER 17 GM PACK PO SCH (15:40)
[2018-08-23] MEDS: oxyCODONE IR 5 MG TABLET PO PRN (20:31)
[2018-08-23] MEDS: ONDANSETRON 4 MG/2 ML VIAL IV PRN (20:32)
[2018-08-23] MEDS: traZODone 50 MG TABLET PO SCH (23:28)
[2018-08-23] MEDS: hydrOXYzine HCL 25 MG TABLET PO PRN (23:30)
[2018-08-23] MEDS: DOCUSATE SODIUM 100 MG CAPSULE PO PRN (23:43)
[2018-08-24] MEDS: SODIUM CHLORIDE 0.9% 1,000 ML IV SCH ×2 (00:43→08:54)
[2018-08-24] MEDS: MEROPENEM 500 MG in SODIUM CHLORIDE 0.9% 100 ML IV SCH ×2 (02:05→11:58)
[2018-08-24 04:28] LABS: Basophils # 0.1 10*3/uL (0.0-0.2); Basophils % 0.6 % (0.0-0.8); Eosinophils # 0.2 10*3/uL (0.0-0.87); Eosinophils % 2.7 % (0.00-10.9); Hematocrit 31.1 VOL% (35.7-47.0); Immature Granulocytes % 0.5 %; Immature Granulocytes Absolute 0.04 #; Lymphocytes # 2.7 10*3/uL (1.4-4.0); Lymphocytes % 31.1 % (21.3-54.2); Mean Corpuscular HGB Conc 32.2 GM/DL (32-36); Mean Corpuscular Hemoglobin 29 PG (27-34); Mean Corpuscular Volume 89.4 FL (87-102); Mean Platelet Volume 12.1 FL (9.6-12.0); Monocytes # 0.9 10*3/uL (0.11-0.8); Monocytes % 9.9 % (1.7-12.7); Neutrophils # 4.8 10*3/uL (1.4-7.4); Neutrophils % 55.2 % (38.7-73.9); Platelet Count 208 T/CUMM (130-400); Red Blood Count 3.48 MC/CUMM (3.8-5.5); Red Cell Distribution Width 13.7 % (9.3-17.3); White Blood Count 8.6 T/CUMM (4-12)
[2018-08-24 05:08] LABS: Calcium 8.2 MG/DL (8.5-10.1); Osmolality,Calculated 286.5 MOS/KG (273-304); Potassium 3.9 MMOL/L (3.5-5.1)
[2018-08-24 05:40] LABS: Hypochromasia 1+; Ovalocytes 1+; Platelet Estimate Normal
[2018-08-24] MEDS: MAGNESIUM SULF RIDER 2 GM in PREMIX 1 EACH IV PRN (05:53)
[2018-08-24] MEDS: POTASSIUM CHLORIDE 20 MEQ TABLET PO PRN (05:53)
[2018-08-24] MEDS: POLYETHYLENE GLYCOL POWDER 17 GM PACK PO SCH (08:53)
[2018-08-24] MEDS: CLOPIDOGREL 75 MG TABLET PO SCH (08:53)
[2018-08-24] MEDS: PANTOPRAZOLE 40 MG TABLET PO SCH ×2 (08:53→21:20)
[2018-08-24] MEDS: MONTELUKAST 10 MG TABLET PO SCH (08:53)
[2018-08-24] MEDS: ALLOPURINOL 100 MG TABLET PO SCH (08:53)
[2018-08-24] MEDS: GABAPENTIN 100 MG CAPSULE PO SCH ×3 (08:53→21:21)
[2018-08-24] MEDS: ASPIRIN EC 81 MG TABLET PO SCH (08:53)
[2018-08-24] MEDS: INSULIN REGULAR 100 UNIT/ML SUBCUT SCH ×4 (08:54→22:01)
[2018-08-24] MEDS: INSULIN GLARGINE 100 UNIT/ML SUBCUT SCH (08:54)
[2018-08-24] MEDS ORDERED: INSULIN GLARGINE 100 UNIT/ML SUBCUT ONE (15:29)
[2018-08-24] MEDS: traZODone 50 MG TABLET PO SCH (21:21)
[2018-08-24] MEDS: hydrOXYzine HCL 25 MG TABLET PO PRN (21:22)
[2018-08-24] MEDS: ONDANSETRON 4 MG/2 ML VIAL IV PRN (21:22)
[2018-08-24] MEDS: DOCUSATE SODIUM 100 MG CAPSULE PO PRN (22:02)
[2018-08-25] MEDS: MEROPENEM 500 MG in SODIUM CHLORIDE 0.9% 100 ML IV SCH ×2 (00:55→11:52)
[2018-08-25 05:39] LABS: Basophils # 0.1 10*3/uL (0.0-0.2); Basophils % 0.7 % (0.0-0.8); Eosinophils # 0.3 10*3/uL (0.0-0.87); Eosinophils % 2.2 % (0.00-10.9); Hematocrit 34.7 VOL% (35.7-47.0); Hemoglobin 10.7 GM/DL (12.0-16.0); Immature Granulocytes % 0.9 %; Lymphocytes # 3.9 10*3/uL (1.4-4.0); Lymphocytes % 34.6 % (21.3-54.2); Mean Corpuscular HGB Conc 30.8 GM/DL (32-36); Mean Corpuscular Hemoglobin 29 PG (27-34); Mean Corpuscular Volume 92.5 FL (87-102); Mean Platelet Volume 11.1 FL (9.6-12.0); Monocytes # 0.9 10*3/uL (0.11-0.8); Monocytes % 8.1 % (1.7-12.7); Neutrophils % 53.5 % (38.7-73.9); Platelet Count 291 T/CUMM (130-400); Red Blood Count 3.75 MC/CUMM (3.8-5.5); Red Cell Distribution Width 13.7 % (9.3-17.3); White Blood Count 11.2 T/CUMM (4-12)
[2018-08-25] MEDS: SODIUM CHLORIDE 0.9% 1,000 ML IV SCH ×3 (05:46→19:50)
[2018-08-25 06:05] LABS: Hypochromasia 1+; Microcytosis Slight; Platelet Estimate Normal
[2018-08-25 06:07] LABS: Calcium 8.6 MG/DL (8.5-10.1); Osmolality,Calculated 278.8 MOS/KG (273-304); Potassium 4.3 MMOL/L (3.5-5.1)
[2018-08-25] MEDS ORDERED: MAGNESIUM HYDROXIDE SUSP 30 ML UDCUP PO ONE (08:42)
[2018-08-25] MEDS: INSULIN GLARGINE 100 UNIT/ML SUBCUT SCH (09:20)
[2018-08-25] MEDS: MONTELUKAST 10 MG TABLET PO SCH (09:21)
[2018-08-25] MEDS: CLOPIDOGREL 75 MG TABLET PO SCH (09:21)
[2018-08-25] MEDS: ALLOPURINOL 100 MG TABLET PO SCH (09:21)
[2018-08-25] MEDS: ASPIRIN EC 81 MG TABLET PO SCH (09:21)
[2018-08-25] MEDS: PANTOPRAZOLE 40 MG TABLET PO SCH ×2 (09:21→21:12)
[2018-08-25] MEDS: GABAPENTIN 100 MG CAPSULE PO SCH ×3 (09:21→21:12)
[2018-08-25] MEDS: INSULIN REGULAR 100 UNIT/ML SUBCUT SCH ×4 (09:21→21:11)
[2018-08-25] MEDS: POLYETHYLENE GLYCOL POWDER 17 GM PACK PO SCH (09:22)
[2018-08-25] MEDS: traZODone 50 MG TABLET PO SCH (21:12)
[2018-08-26] MEDS: MEROPENEM 500 MG in SODIUM CHLORIDE 0.9% 100 ML IV SCH ×2 (01:52→12:49)
[2018-08-26] MEDS: SODIUM CHLORIDE 0.9% 1,000 ML IV SCH (01:53)
[2018-08-26 05:04] LABS: Calcium 8.4 MG/DL (8.5-10.1); Osmolality,Calculated 283.3 MOS/KG (273-304); Potassium 4.4 MMOL/L (3.5-5.1)
[2018-08-26] MEDS: INSULIN REGULAR 100 UNIT/ML SUBCUT SCH ×2 (09:14→12:49)
[2018-08-26] MEDS: INSULIN GLARGINE 100 UNIT/ML SUBCUT SCH (09:14)
[2018-08-26] MEDS: ASPIRIN EC 81 MG TABLET PO SCH (09:15)
[2018-08-26] MEDS: POLYETHYLENE GLYCOL POWDER 17 GM PACK PO SCH (09:15)
[2018-08-26] MEDS: PANTOPRAZOLE 40 MG TABLET PO SCH (09:15)
[2018-08-26] MEDS: MONTELUKAST 10 MG TABLET PO SCH (09:15)
[2018-08-26] MEDS: CLOPIDOGREL 75 MG TABLET PO SCH (09:15)
[2018-08-26] MEDS: GABAPENTIN 100 MG CAPSULE PO SCH (09:15)
[2018-08-26] MEDS: ALLOPURINOL 100 MG TABLET PO SCH (09:15)
[2018-08-26 12:25] VITALS: BP 139/69
== END 2018-08-26 13:24 | disposition swing bed (61) | DRG 682 ==
LOC: EDUNIT# → EDBD → N.ED 23:32 → N.EDINP 08-20 02:29 → N.TELES 08-20 02:52
PROVIDERS: ADMIT Internal Medicine; ATTEND Internal Medicine